=== PATIENT | female | born 1970 | race Caucasian/White ===

== ENCOUNTER → 2020-05-18 10:30 | Outpatient (BNVA) | payer OTHER, SELFPAY | PROVIDERS: PCP Internal Medicine; Visit Provider Internal Medicine Endocrinology, Diabetes & Metabolism | DX: E05.00 Thyrotoxicosis with diffuse goiter without thyrotoxic crisis or storm (principal); E55.9 Vitamin D deficiency, unspecified; Z79.899 Other long term (current) drug therapy | CPT/HCPCS: 99214 ==

== ENCOUNTER 2020-05-18 12:27 | Outpatient (REF) | payer OTHER, SELFPAY ==
[2020-05-18 14:44] LABS: Free T4 (Free Thyroxine) 1.06 ng/dL (0.71-1.85); Thyroid Stimulating Hormone 1.18 mIU/mL (0.32-4.0); Vitamin D 25-OH Total 20.3 ng/mL (>30)
[2020-05-19 19:17] LABS: Triiodothyronine T3 Total 108 ng/dL (76-181)
== END 2020-05-18 12:28 | disposition home or self-care (01) ==
LOC: HO.10HDL 12:27
PROVIDERS: Visit Provider Internal Medicine Endocrinology, Diabetes & Metabolism
DX: E05.00 Thyrotoxicosis with diffuse goiter without thyrotoxic crisis or storm (principal); E55.9 Vitamin D deficiency, unspecified
CPT/HCPCS: 82306; 84439; 84443; 84480

== ENCOUNTER → 2020-08-16 12:35 | Outpatient (BNVA) | payer OTHER, SELFPAY | PROVIDERS: Visit Provider Student in an Organized Health Care Education/Training Program | DX: Z76.89 Persons encountering health services in other specified circumstances (principal) ==

== ENCOUNTER → 2020-09-13 09:53 | Outpatient (BNVA) | payer OTHER, SELFPAY | PROVIDERS: PCP Internal Medicine; Visit Provider Internal Medicine Endocrinology, Diabetes & Metabolism ==

== ENCOUNTER 2020-10-05 10:31 | Outpatient (REF) | payer OTHER, SELFPAY | END 2020-10-05 10:32 | disposition home or self-care (01) | LOC: HO.LAB 10:31 | PROVIDERS: Visit Provider Internal Medicine | DX: Z20.822 Contact with and (suspected) exposure to COVID-19 (principal) | CPT/HCPCS: 36415; C9803; U0003; U0005 ==

== ENCOUNTER 2021-01-11 09:53 | Outpatient (REF) | payer OTHER, SELFPAY ==
[2021-01-11 12:33] LABS: Free T4 (Free Thyroxine) 0.85 ng/dL (0.71-1.85); Thyroid Stimulating Hormone 1.08 uIU/mL (0.32-4.0); Vitamin D 25-OH Total 17.3 ng/mL (>30)
[2021-01-12 14:22] LABS: Triiodothyronine T3 Total 103 ng/dL (76-181)
== END 2021-01-11 09:54 | disposition home or self-care (01) ==
LOC: HO.LAB 09:53
PROVIDERS: PCP Internal Medicine; Visit Provider Internal Medicine Endocrinology, Diabetes & Metabolism
DX: E05.00 Thyrotoxicosis with diffuse goiter without thyrotoxic crisis or storm (principal); E55.9 Vitamin D deficiency, unspecified; Z79.899 Other long term (current) drug therapy
CPT/HCPCS: 36415; 82306; 84439; 84443; 84480; 99212

== ENCOUNTER 2021-01-30 10:25 | Outpatient (REF) | payer OTHER, SELFPAY ==
--- NOTE | ~2021-01-30 | US_ITS ---
EXAMINATION: US THYROID CLINICAL INFORMATION: Thyrotoxicosis with diffuse goiter. COMPARISON: Ultrasound thyroid soft tissues neck 12/23/2018 and ultrasound thyroid soft tissues neck 06/26/2017. TECHNIQUE: Linear transducer grayscale and color Doppler examination with attention to the region of the thyroid. FINDINGS: SIZE: Measurements of the thyroid lobes and nodules are given in sagittal, anteroposterior and transverse dimensions respectively. Right Thyroid Lobe: 5.4 x 1.9 x 2.2 cm, volume 11.8 mL. Previously 5.6 x 1.6 x 1.8 cm, volume 8.4 mL. Parenchyma: The gland echotexture is homogeneous. Thyroid vascularity is increased. Left Thyroid Lobe: 4.5 x 1.0 x 1.6 cm, volume 3.8 mL. Previously 4.3 x 1.1 x 1.6 cm, volume 4.0 mL. Parenchyma: The gland echotexture is homogeneous. Thyroid vascularity is increased. Isthmus: 0.3 cm in maximum AP dimension. Previously 0.3 cm. Estimated total number of nodules greater than or equal to 1 cm: 1. Edging Machine Setter nodules are described as follows: 1. Location: Right mid. Size: 1.5 x 1.1 x 1.4 cm, volume 1.2 mL. Previously: 1.5 x 0.8 x 1.1 cm, volume 0.70 mL. Nodule characteristics: Composition: Solid/almost completely solid (2). Echogenicity: Hyperechoic (1). Shape: Not taller than wide (0). Margins: Smooth (0). Echogenic Foci: None (0). ACR TI-RADS total points: 3 ACR TI-RADS category: 3 Significant change in size (>/= 20% in 2 dimensions and minimal increase of 2 mm or 50% or greater increase in volume): Yes Change in features: No Change in ACR TI-RADS risk category: No NODES: No lymphadenopathy is seen in the tissue surrounding the thyroid gland. US/US thyroid IMPRESSION: Slightly enlarged right lobe. Interval increase in size in the solitary right nodule from 2017 exam.. ACR TI-RADS RECOMMENDATION REFERENCE: Ultrasound-guided fine-needle aspiration, followup ultrasound, no further follow up. * TR1 (0 point) and TR 2 (2 points): No FNA or follow up * TR3 (3 points): FNA if more than or equal to 2.5 cm in maximum dimension, followup ultrasound in 1, 3 and 5 years if 1.5 to 2.4 cm in maximum dimension. * TR4 (4-6 points): FNA if more than or equal to 1.5 cm in maximum dimension, followup ultrasound in 1, 2, 3 and 5 years if 1 to 1.4 cm in maximum dimension. * TR5 (more than or equal to 7 points): FNA if more than or equal to 1 cm in maximum dimension, followup ultrasound every year for 5 years if 0.5 to 0.9 cm in maximum dimension. * TR3, TR4 or TR5 nodules that are below the size threshold for follow up receive no follow up.
== END 2021-01-30 10:26 | disposition home or self-care (01) ==
LOC: HO.US 10:25
PROVIDERS: Visit Provider Internal Medicine Endocrinology, Diabetes & Metabolism
DX: E05.00 Thyrotoxicosis with diffuse goiter without thyrotoxic crisis or storm (principal)
CPT/HCPCS: 76536

== ENCOUNTER 2021-02-27 08:39 | Outpatient (REF) | payer OTHER, SELFPAY ==
--- NOTE | ~2021-02-27 | US_ITS ---
EXAMINATION: ULTRASOUND-GUIDED FINE-NEEDLE ASPIRATION CLINICAL INFORMATION: Hyperthyroid. Graves' disease. Increasing right thyroid nodule size. History of previous thyroid fine-needle aspiration March 2019 COMPARISON: Previous thyroid ultrasounds most recent 01/31/2020 TECHNIQUE: Procedure and risks and benefits including bleeding and infection were discussed with the patient and informed consent was obtained. Using ultrasound guidance and a 25-gauge needle, access to the solitary nodule in the mid right lobe was obtained. Three 25-gauge FNA specimens were obtained. There was no complication. FINDINGS: There is a complex cystic 1.5 x 1.1 x 1.5 cm nodule in the mid right lobe that was targeted for fine-needle aspiration. US/US guided fine needle asp IMPRESSION: Ultrasound-guided right thyroid nodule fine-needle aspiration.
[2021-02-27] MEDS: Lidocaine HCl 1 % MPF 5 ML VIAL SUBCUT (12:59)
== END 2021-02-27 08:40 | disposition home or self-care (01) ==
LOC: HO.US 08:39
PROVIDERS: Visit Provider Internal Medicine Endocrinology, Diabetes & Metabolism
DX: E05.00 Thyrotoxicosis with diffuse goiter without thyrotoxic crisis or storm (principal); E04.2 Nontoxic multinodular goiter
CPT/HCPCS: 10005; 88172; 88173; 88305

== ENCOUNTER → 2021-04-04 12:32 | Outpatient (BNVA) | payer OTHER, SELFPAY | PROVIDERS: PCP Internal Medicine; Visit Provider Student in an Organized Health Care Education/Training Program ==

== ENCOUNTER → 2021-04-19 08:20 | Outpatient (BNVA) | payer OTHER, SELFPAY | PROVIDERS: PCP Internal Medicine; Referring Provider Internal Medicine; Visit Provider Internal Medicine | DX: I34.0 Nonrheumatic mitral (valve) insufficiency (principal); I36.1 Nonrheumatic tricuspid (valve) insufficiency; R07.2 Precordial pain; R06.02 Shortness of breath | CPT/HCPCS: 93005; 99202 ==

== ENCOUNTER → 2021-05-04 09:32 | Outpatient (REF) | payer OTHER, SELFPAY ==
--- NOTE | 2021-05-04 09:35 | CA_ITS ---
Acquisition Time: 2021-05-04 09:53:30 Total Exercise Time: 00:06:23 Test Indications: CP, SOB Medications: SEE CHART Protocol: MICHEAL Max HR: 157 BPM 91% of Pred: 172 BPM Max BP: 152/090 mmHG Max Work Load: 7.5 METS Exercise stress test with exercise 6 min 23 sec of Micheal with mild sob and intermittent pinching sensation to localized area to left of mid sternal region, without arrythmia, with normotensive response to exercise, without EKG changes meeting criteria for ischemia. In recovery her symptoms resolved. Test reviewed with Dr Keen. Referred By: Osman Keen Overread By: OLYA SANDY
== END ==
LOC: HO.CARD 09:32
PROVIDERS: PCP Internal Medicine; Visit Provider Internal Medicine
DX: R07.2 Precordial pain (principal)
CPT/HCPCS: 93017

== ENCOUNTER → 2021-05-19 09:14 | Outpatient (REF) | payer OTHER, SELFPAY ==
--- NOTE | 2021-05-19 09:23 | CA_ITS ---
Transthoracic Echocardiogram Patient (Last, First, Middle): Edson Camacho M Gender: Female Date of : 1970 Age: 50 Procedure Date: 05/19/2021 Procedure Type: Transthoracic Echocardiogram Location: OP Height: 152.4 cm Weight: 68.04 kg BSA: 1.65 m2 Heart Rate: bpm BP: 110 / 80 mmHg Television Receiver Analyzer: GREGORY Perez MD: Osman Keen MD Product Support Technician: Thierry De Jesus MD Symptoms: R07.2 - Precordial pain Study Quality: Fair ECG Rhythm: Sinus Conclusions: - Essentially normal study Findings Left Ventricle Normal left ventricular size, thickness, and systolic function. The visually estimated ejection fraction is between 60-65%. Spectral Doppler is indicative of a normal filling pattern. Right Ventricle Normal right ventricular cavity size and systolic function. Atria Both atria are normal in size. Interatrial shunt cannot be excluded. Aortic Valve Normal aortic valve structure and function. There is no aortic valve stenosis. There is no aortic valve regurgitation. Mitral Valve Normal mitral valve structure and function. There is trace mitral valve regurgitation. There is no mitral valve stenosis. Pulmonic Valve The pulmonic valve is likely normal. Tricuspid Valve Normal tricuspid valve structure. There is trace tricuspid valve regurgitation. The right ventricular systolic pressure is normal. The right ventricular systolic pressure is 18 mmHg. Normal right atrial pressure. There is no evidence of pulmonary hypertension. Great Vessels All visible segments of the aorta are normal in size. The pulmonary artery was not well visualized. Venous The inferior vena cava is normal in size and collapses greater than 50% with inspiration. Pericardium/Pleural There is no evidence of pericardial effusion. Prior Study Comparison No significant change compared to prior study dated: 03/08/2020. Measurements 2D Linear Measurements IVSd: 0.73 0.6-0.9/0.6-1.0 cm LVIDd: 4.33 3.9-5.3/4.2-5.9 cm LVIDd Index: 2.62 2.4-3.2/2.2-3.1 cm/m2 LVIDs: 3.11 2.0-3.6 cm LVPWd: 0.69 0.7-1.1 cm Ao Root: 2.70 2.1-3.5 cm LA Diam: 3.00 2.7-3.8/3.0-4.0 cm LAIDs Index: 1.82 1.5-2.3 cm/m2 LV Mass: 113.49 67-162/88-224 g LV Mass Index: 68.78 43-95/49-115 g/m2 LVOT Diam: 2.00 3.0+(-)1.3 cm 2D Systolic Function EF 4C: 63.80 >55% EF 2C: 65.10 >55% EF BiP: 65.90 >55% Mitral Valve MV Pk E: 0.76 MV PK A: 0.65 MV Decel Time: 308.00 E/A: 1.20 E'Lateral: 13.10 E'Medial: 7.94 E/E' Med: 9.50 E/E' Lat: 5.80 PHT: 90.00 MVA PHT: 2.44 Decel [place]: 2.46 Aortic Valve AoV Pk Wes: 1.26 AoV Mn Wes: 0.84 AoV VTI: 0.26 AoV Pk Grad: 6.00 Aov Mn Grad: 3.00 APOLLO Cont.VTI: 2.62 LVOT LVOT Pk Wes: 1.01 LVOT Mn Wes: 0.70 LVOT VTI: 0.21 LVOT Pk Grad: 4.00 LVOT Mn Grad: 2.00 LVOT Diam: 2.00 LVOT Area: 3.14 Diastolic Function MV Pk E: 0.76 MV Pk A: 0.65 E/A: 1.20 E'Medial: 7.94 E/E' Med: 9.50 E' Laterial: 13.10 E/E' Lat: 5.80 Right Ventricle TAPSE (mm): 1.74 TVS' Wes: 11.90 Tricuspid Valve TR Pk Wes: 1.95 TR Pk Grad: 15.00 RA Press: 3.00 RVSP: 18.00 Great Vessels Aorta Ao Root-2D: 2.70 2.0-3.7 cm Ao Asc: 3.10 2.1-3.4 cm Ao Arch: 2.60 Updated in Other Vendor System with Status of Final Thierry De Jesus MD electronically signed on 05/20/2021 2:44:13 PM with status of Final
== END ==
LOC: HO.CARD 09:14
PROVIDERS: PCP Internal Medicine; Visit Provider Internal Medicine
DX: R07.2 Precordial pain (principal)
CPT/HCPCS: 93306

== ENCOUNTER → 2021-07-05 12:16 | Outpatient (BNVA) | payer OTHER, SELFPAY | PROVIDERS: PCP Internal Medicine; Referring Provider Internal Medicine; Visit Provider Internal Medicine | DX: R07.2 Precordial pain (principal) | CPT/HCPCS: 99212 ==

== ENCOUNTER 2021-07-18 11:04 | Outpatient (REF) | payer OTHER, SELFPAY ==
[2021-07-18 11:30] LABS: MANUAL DIFF FLAG NO
[2021-07-18 11:47] LABS: Basophils Percent Auto 0.4 % (0-2); Eosinophils Absolute Auto 0.1 X10*3/uL (0.0-0.4); Eosinophils Percent Auto 0.8 % (0-4); Hematocrit 41.8 % (37.0-47.0); Hemoglobin 13.5 g/dl (12.0-16.0); Imm Gran Abs Auto 0.02 X10*3/uL (0.00-0.03); Imm Gran Pct Auto 0.3 % (0.0-0.4); Lymphocytes Absolute Auto 2.9 X10*3/uL (1.2-4.9); Lymphocytes Percent Auto 36.4 % (20-40); Mean Corpuscular HGB Conc 32.3 g/dl (31.0-35.0); Mean Corpuscular Volume 89.9 fL (80.0-98.0); Mean Platelet Volume 9.7 fL (9.4-12.3); Monocytes Absolute Auto 0.6 X10*3/uL (0.1-1.2); Monocytes Percent Auto 7.7 % (2-11); Neutrophils Absolute Auto 4.3 x10*3/uL (2.0-8.3); Neutrophils Percent Auto 54.4 % (45-73); Platelet Count 259 X10*3/uL (160-400); Red Blood Count 4.65 X10*6/uL (4.20-5.50); Red Cell Distribution Width 12.1 % (11.0-16.0); White Blood Count 7.8 X10*3/uL (4.8-10.8)
[2021-07-18 12:17] LABS: Alanine Aminotransferase 20 U/L (0-31); Albumin Level 4.9 g/dL (3.5-5.0); Alkaline Phosphatase 84 U/L (39-117); Anion Gap 12 (12-20); Aspartate Amino Transferase 23 U/L (5-31); Bilirubin Total 0.4 mg/dL (0.0-1.0); Blood Urea Nitrogen 14 mg/dL (9-16); Calcium 10.1 mg/dL (8.4-10.2); Carbon Dioxide 27 mmol/L (22-29); Chloride 104 mmol/L (96-108); Cholesterol 233 mg/dL; Estimated Glomerular Filt Rate > 60; Glucose Fasting 95 mg/dL (60-99); HDL Cholesterol 40 mg/dL; LDL Cholesterol Calculated 174 mg/dl; Potassium 3.9 mmol/L (3.3-5.1); Sodium 139 mmol/L (135-145); Total Protein 8.3 g/dL (6.5-8.0); Triglycerides 97 mg/dL
[2021-07-18 12:24] LABS: Thyroid Stimulating Hormone 1.12 uIU/mL (0.32-4.0)
[2021-07-22 12:06] LABS: Vitamin D 25-OH, D2 <4 ng/mL; Vitamin D 25-OH, D3 15 ng/mL; Vitamin D 25-OH, Total 15 ng/mL (30-100)
== END 2021-07-18 11:05 | disposition home or self-care (01) ==
LOC: HO.LAB 11:04
PROVIDERS: Absent Provider Internal Medicine; PCP Internal Medicine; Visit Provider Internal Medicine Endocrinology, Diabetes & Metabolism
DX: E05.00 Thyrotoxicosis with diffuse goiter without thyrotoxic crisis or storm (principal); R42 Dizziness and giddiness; D64.9 Anemia, unspecified; E55.9 Vitamin D deficiency, unspecified; E66.9 Obesity, unspecified
CPT/HCPCS: 36415; 80053; 80061; 82306; 84443; 85025

== ENCOUNTER 2021-08-12 11:00 | Emergency (ER) | payer OTHER, SELFPAY ==
[2021-08-12 11:58] VITALS: BP 161/92; PULSE 87; RESP 18; TEMP 36.8; O2SAT 98; BMI 26.5
[2021-08-12 12:19] LABS: COVID-19 Test Negative (Negative)
--- NOTE | 2021-08-12 13:37 | ED_ITS ---
HPI - General Adult General Source: patient Mode of arrival: ambulatory Limitations: no limitations History of Present Illness HPI narrative: 50-year-old female with past medical history asthma, vitamin-D deficiency, hyperthyroidism, MVR, Graves disease, GERD, fibromyalgia is here today for complaining of sinus pain, and left ear pain. Patient reports that her grandchild had cold symptoms, her symptoms started few days ago. Patient has a history of sinus infection 2 years ago. No contact with anyone who had COVID. Patient reports having green nasal discharge. Patient denies fever or chills. Denies SOB, chest pain, migraine headache. Patient denies any other GI, respiratory or cardiac symptoms. Onset (ago): day(s) Location: face Related Data Home Medications Medication Instructions Recorded Confirmed cetirizine 10 mg tablet 10 mg PO DAILY 06/28/20 07/05/21 escitalopram oxalate 20 mg tablet 20 mg PO DAILY 06/28/20 07/05/21 zolpidem 5 mg tablet 5 mg PO BEDTIME PRN 06/28/20 07/05/21 latanoprost 0.005 % eye drops 1 drp OPHTHALMIC (EYE) QAM 09/13/20 07/05/21 meclizine 25 mg tablet 25 mg PO PRN tab 09/13/20 07/05/21 mometasone-formoterol HFA 200 1 puff PO BID 09/13/20 07/05/21 mcg-5 mcg/actuation aerosol inhaler triamcinolone acetonide 55 mcg 1 spray INTRANASAL PRN ml 09/13/20 07/05/21 nasal spray aerosol buspirone 7.5 mg tablet 7.5 mg PO BID 01/11/21 07/05/21 Previous Rx's Medication Instructions Recorded gabapentin 300 mg capsule 300 mg PO TID #90 cap 08/16/20 tizanidine 4 mg tablet 4 mg PO BEDTIME PRN #30 tab 08/16/20 artificial tears(hypromellose) 0.5 1 drp OPHTHALMIC (EYE) TID 30 Days 12/01/20 % eye drops #30 ml albuterol sulfate 90 mcg/actuation 2 inh INHALATION Q6H PRN 30 Days 12/27/20 breath activated powder inhaler #1 ea (ProAir RespiClick) cholecalciferol (vitamin D3) 125 125 mcg PO DAILY 30 Days #30 cap 01/11/21 mcg (5,000 unit) capsule omeprazole 20 mg capsule,delayed 20 mg PO DAILY 90 Days #90 cap 02/26/21 release valacyclovir 1 gram tablet 1,000 mg PO Q8H 7 Days #21 tab 04/28/21 methimazole 5 mg tablet 5 mg PO DAILY 90 Days #90 tab 07/19/21 hyoscyamine sulfate 0.125 mg 0.125 mg PO BID PRN 30 Days #60 tab 07/27/21 sublingual tablet fluticasone propionate 50 2 spray INTRANASAL DAILY #16 g 08/11/21 mcg/actuation nasal spray,suspension (Flonase Allergy Relief) amoxicillin 875 mg-potassium 1 tab PO BID 10 Days #20 tab 08/12/21 clavulanate 125 mg tablet (Augmentin) cetirizine 10 mg tablet (Zyrtec) 10 mg PO DAILY PRN #20 tab 08/12/21 fluticasone propionate 50 1 spray INTRANASAL BID #16 g 08/12/21 mcg/actuation nasal spray,suspension (Flonase Allergy Relief) Allergies Allergy/AdvReac Type Severity Reaction Status Date / Time No Known Allergies Allergy Unknown Verified 07/05/21 13:30 [No Known Allergies*] Review of Systems Review of Systems: Constitutional : No Weight loss, No Fever, No Chills, No Night Sweats, No Fatigue, No Malaise ENT/Mouth : No Hearing loss, Ear Pain, Nasal Congestion, Sinus Pain, No Hoarseness, sore throat, Rhinorrhea, No Swallowing Difficulty Eyes: No Eye Pain, No Swelling, No Redness, No Foreign Body, No Discharge, No Vision Changes Cardiovascular : No Chest Pain, No SOB, No Dyspnea on Exertion, No Orthopnea, No Edema, No Palpitations Respiratory : No Cough, No Sputum, No Wheezing, No Smoke Exposure, No Dyspnea Gastrointestinal : No Nausea, No Vomiting, No Diarrhea, No Constipation, No abdominal Pain, No Hematochezia, No Melena Genitourinary : no irregular bleeding, No Dysuria, No Urinary Frequency, No Hematuria, No Urinary Incontinence, No Urgency, No Flank Pain, No Urinary Flow Changes, No Hesitancy Musculoskeletal : No joint pain, No Myalgias, No Joint Swelling Skin : No Skin Lesions, No rash Neuro : No Weakness, No Numbness, No Paresthesias, No Loss of Consciousness, No Dizziness, No Headache Psych : No Anxiety/Panic, No Depression, No SI/HI/AH/VH, No Social Issues, Yes all other systems are reviewed and are negative PMFSH Past Medical History Medical History (Updated 08/13/21 @ 00:01 by Rony Carr) Asthma Fibromyalgia ROBBIE (generalized anxiety disorder) GERD (gastroesophageal reflux disease) Graves disease Graves' orbitopathy Hyperthyroidism Mild recurrent major depression Mitral valve regurgitation Obese Obesity, Class I, BMI 30-34.9 Tricuspid regurgitation Uninodular goiter Vertigo Vitamin D deficiency Surgical History Hx of hysterectomy Family History Family History Father CVD (cardiovascular disease) Hypertension Mother CVD (cardiovascular disease) Hypertension Diabetes Son Mental health disorder Social History Social History Household Members: Children Housing: Apartment Alcohol intake: current Alcohol intake frequency: holidays/special occasions only Alcohol type: wine and hard liquor Patient Tobacco Use Status: Never used Tobacco e-Cigarette/Vaping Use: Never Used Second Hand Smoke Exposure: No Advance Directives: Yes Advance Directives on File: Yes Advance Directives Date on File: 05/18/20 Patient : No service: No Current occupational status: unemployed Physical Exam Vital Signs: Vital Signs: Last Vital Signs Temp 98.3 F 08/12/21 11:58 Pulse 87 08/12/21 11:58 Resp 18 08/12/21 11:58 BP 161/92 H 08/12/21 11:58 Pulse Ox 98 08/12/21 11:58 BMI result Body Mass Index 26.5 Const: General: healthy appearing, no acute distress and well developed Nutritional Appearance: well nourished Orientation/consciousness: patient oriented x3 HENMT: Head: Yes normal to inspection, Yes normocephalic, Yes atraumatic and Yes other (Frontal sinus tenderness) Ears: hearing grossly normal bilaterally, TM normal on the right and left TM abnormal General nose exam: Normal external nose present and Normal nares present Face and sinus: Yes normal facial exam Mouth: Normal oral and palatal mucosa present Throat: Yes posterior oropharynx normal, Yes uvula midline and Yes abnormal tonsil (Tonsils enlarged bilaterally without exudate) Eyes: General: appearance normal, both eyes and all related structures Neck: Neck: Yes normal visual inspection, Yes full ROM and Yes trachea midline Thyroid: Thyroid normal Resp: Effort & Inspection: normal respiratory effort, able to speak in complete sentences, no tracheal deviation and symmetric chest movement Auscultation: clear to auscultation bilaterally Cardio: Jugular venous distension: no JVD Rate: regular rate Heart sounds: S1 normal heart sound present, S2 normal heart sound present, no gallops and no murmurs GI: Inspection: Yes normal to inspection and No distended Palpation (GI): Soft to palpation, not firm, nontender and No hepatosplenomegaly present Auscultation: normal bowel sounds : General: Yes no CVA tenderness Back/Spine/Pelvis: Back: no CVA tenderness Skin: General skin exam: elasticity normal, turgor normal and dry skin Neuro: General: patient oriented x3 Psych: Appearance: grossly normal Mental Status: mental status grossly normal Speech and movement: Normal speech and movement present Affect: normal affect Attitude: cooperative Thought process: Normal thought process present Thought content: Normal thought content present Insight: Lucreica billingsley insight present (Psych) Judgement: Good judgement present (Psych) Course Course Course Narrative: 50 years old female with past medical history of GERD, fibromyalgia, MVR, asthma, Graves disease, hyperthyroidism is here today for complaining of sinus pain. Upon exam patient does have frontal sinus and phoebe nasal sinus tenderness, left TM redness without bulging. Will send patient home on antibiotic. First dose of Augmentin will be given in the ER. Patient can also take Flonase at home twice a day in each nostril for the next 7 days and then daily. Patient can take also Zyrtec daily. Patient was instructed to drink plenty fluids and return to emergency department if her symptoms will get worse. Patient is agreeable to this plan and verbalizes understanding of instructions. Medical Decision Making Lab Data Labs: Lab Results 08/12/21 Range/Units 12:00 COVID-19 ([facility]) Negative (Negative) COVID-19 Clin Com See Note Discharge Plan Discharge Clinical Impression: Otitis media, Sinus infection Patient Disposition: Home, Self-Care Instructions: Sinusitis (ED), Ear Infection (ED) Additional Instructions: You were seen here today for sinus, throat and ear pain. You do have a sinus infection and left ear infection. You were given 1st dose of antibiotics in the emergency room. You will be given a script for Flonase. Please take it twice a day in each nostril for 1st week then once a day. Please take antibiotics twice a day for 10 days. You will be giving a script for Zyrtec as well take it on as needed basis daily Prescriptions: New amoxicillin-pot clavulanate [Augmentin] 875-125 mg tablet 1 tab PO BID 10 Days Qty: 20 RF: 0 fluticasone propionate [Flonase Allergy Relief] 50 mcg/actuation spray,suspension 1 spray intranasal BID Qty: 16 RF: 0 cetirizine [Zyrtec] 10 mg tablet 10 mg PO DAILY PRN (Reason: allergy symptoms) Qty: 20 RF: 0 No Action artificial tears(hypromellose) 0.5 % drops 1 drp ophthalmic (eye) TID 30 Days Qty: 30 RF: 6 omeprazole 20 mg capsule,delayed release(DR/EC) 20 mg PO DAILY 90 Days Qty: 90 RF: 2 valacyclovir 1 gram tablet 1,000 mg PO Q8H 7 Days Qty: 21 RF: 0 methimazole 5 mg tablet 5 mg PO DAILY 90 Days Qty: 90 RF: 0 hyoscyamine sulfate 0.125 mg tablet, sublingual 0.125 mg PO BID PRN (Reason: dyspepsia) 30 Days Qty: 60 RF: 0 fluticasone propionate [Flonase Allergy Relief] 50 mcg/actuation spray,suspension 2 spray intranasal DAILY Qty: 16 RF: 0 ProAir RespiClick 90 mcg/actuation aerosol powdr breath activated 2 inh inhalation Q6H PRN (Reason: shortness of breath or wheezing) 30 Days Qty: 1 RF: 6 cetirizine 10 mg tablet 10 mg PO DAILY RF: 0 zolpidem 5 mg tablet 5 mg PO BEDTIME PRNRF: 0 escitalopram oxalate 20 mg tablet 20 mg PO DAILY RF: 0 meclizine 25 mg tablet 25 mg PO PRN (Reason: motion sickness) RF: 0 mometasone-formoterol 200-5 mcg/actuation HFA aerosol inhaler 1 puff PO BID RF: 0 triamcinolone acetonide 55 mcg aerosol,spray 1 spray intranasal PRNRF: 0 latanoprost 0.005 % drops 1 drp ophthalmic (eye) QAM RF: 0 tizanidine 4 mg tablet 4 mg PO BEDTIME PRN (Reason: muscle spasticity) Qty: 30 RF: 3 gabapentin 300 mg capsule 300 mg PO TID Qty: 90 RF: 3 buspirone 7.5 mg tablet 7.5 mg PO BID RF: 0 cholecalciferol (vitamin D3) 125 mcg (5,000 unit) capsule 125 mcg PO DAILY 30 Days Qty: 30 RF: 6 Referrals: Melissa Au MD [Primary Care Provider] - 2 days Interventions: ED Discharge Assessment Last Done: 08/12/21 14:31 Discharge Date/Time: 08/12/21 14:31
[2021-08-12] MEDS: Amoxicillin/Potassium Clav 875 MG TABLET PO (14:05)
== END 2021-08-12 14:31 | disposition home or self-care (01) ==
PROVIDERS: Emergency Provider Internal Medicine; PCP Internal Medicine
DX: H66.92 Otitis media, unspecified, left ear (principal); J32.9 Chronic sinusitis, unspecified; Z20.822 Contact with and (suspected) exposure to COVID-19
CPT/HCPCS: 87635; 99283

== ENCOUNTER → 2021-09-18 13:43 | Outpatient (BNVA) | payer OTHER, SELFPAY | PROVIDERS: PCP Internal Medicine; Visit Provider Nurse Practitioner Family | DX: M54.2 Cervicalgia (principal); M54.50 Low back pain, unspecified; M25.561 Pain in right knee; M25.562 Pain in left knee | CPT/HCPCS: 99212 ==

== ENCOUNTER 2021-10-18 12:41 | Outpatient (REF) | payer OTHER, SELFPAY ==
--- NOTE | ~2021-10-18 | MR_ITS ---
EXAMINATION: MR CERVICAL SPINE WITHOUT CONTRAST CLINICAL INFORMATION: Cervicalgia. COMPARISON: None available. TECHNIQUE: MRI of the cervical spine was performed using routine sequences without contrast. FINDINGS: The cervical vertebral bodies maintain normal heights and alignment. The disc heights appear preserved. There is no bone marrow edema. The cervical cord signal appears normal. There is no disc herniation. No spinal canal or neural foraminal stenosis is seen. The imaged portions of the intracranial contents and extraspinal soft tissues appear normal. MR/MR cervical spine wo con IMPRESSION: No significant abnormality is seen. No spinal canal or neural foraminal stenosis.
== END 2021-10-18 12:42 | disposition home or self-care (01) ==
LOC: HO.MRI 12:41
PROVIDERS: Visit Provider Nurse Practitioner Family
DX: E05.00 Thyrotoxicosis with diffuse goiter without thyrotoxic crisis or storm (principal); M54.2 Cervicalgia; N95.1 Menopausal and female climacteric states; Z79.899 Other long term (current) drug therapy
CPT/HCPCS: 72141; 99212

== ENCOUNTER 2021-11-08 11:05 | Outpatient (REF) | payer OTHER, SELFPAY ==
--- NOTE | ~2021-11-08 | XR_ITS ---
EXAMINATION: XR LUMBOSACRAL SPINE CLINICAL INFORMATION: Low back pain COMPARISON: 10/21/2015 TECHNIQUE: Three views of the lumbosacral spine. FINDINGS: No acute fracture or traumatic malalignment. Mild levoconvex lumbar scoliosis, apex left at L2-L3. Small endplate osteophytes present throughout the lumbar spine. Moderate facet arthropathy L4-L5 and L5-S1. Disc space heights are relatively preserved. Sacroiliac joints unremarkable. Paraspinal soft tissues unremarkable. XR/XR lumbar spine 2-3V IMPRESSION: No acute findings. Lumbar spondylosis as described
[2021-11-08 11:25] LABS: MANUAL DIFF FLAG NO
[2021-11-08 11:53] LABS: Basophils Percent Auto 0.3 % (0-2); Eosinophils Absolute Auto 0.1 X10*3/uL (0.0-0.4); Eosinophils Percent Auto 0.8 % (0-4); Hematocrit 38.7 % (37.0-47.0); Hemoglobin 12.7 g/dl (12.0-16.0); Imm Gran Abs Auto 0.05 X10*3/uL (0.00-0.03); Imm Gran Pct Auto 0.6 % (0.0-0.4); Lymphocytes Absolute Auto 3.3 X10*3/uL (1.2-4.9); Lymphocytes Percent Auto 38.4 % (20-40); Mean Corpuscular HGB Conc 32.8 g/dl (31.0-35.0); Mean Corpuscular Hemoglobin 29.2 pg (27.0-33.0); Mean Platelet Volume 9.3 fL (9.4-12.3); Monocytes Absolute Auto 0.7 X10*3/uL (0.1-1.2); Monocytes Percent Auto 8.2 % (2-11); Neutrophils Absolute Auto 4.5 x10*3/uL (2.0-8.3); Neutrophils Percent Auto 51.7 % (45-73); Platelet Count 304 X10*3/uL (160-400); Red Blood Count 4.35 X10*6/uL (4.20-5.50); Red Cell Distribution Width 12.4 % (11.0-16.0); White Blood Count 8.7 X10*3/uL (4.8-10.8)
[2021-11-08 12:51] LABS: Alanine Aminotransferase 19 U/L (0-31); Albumin Level 4.8 g/dL (3.5-5.0); Alkaline Phosphatase 75 U/L (39-117); Anion Gap 14 (12-20); Aspartate Amino Transferase 20 U/L (5-31); Bilirubin Total 0.3 mg/dL (0.0-1.0); Blood Urea Nitrogen 13 mg/dL (9-16); Carbon Dioxide 26 mmol/L (22-29); Chloride 103 mmol/L (96-108); Estimated Glomerular Filt Rate > 60; Glucose Random 90 mg/dL (60-115); Potassium 4.1 mmol/L (3.3-5.1); Sodium 139 mmol/L (135-145); Total Protein 8.1 g/dL (6.5-8.0)
[2021-11-08 12:57] LABS: Free T4 (Free Thyroxine) 0.94 ng/dL (0.71-1.85); Thyroid Stimulating Hormone 1.99 uIU/mL (0.32-4.0)
== END 2021-11-08 11:06 | disposition home or self-care (01) ==
LOC: HO.XRAY 11:05
PROVIDERS: Internal Medicine Endocrinology, Diabetes & Metabolism; Absent Provider Nurse Practitioner Family; PCP Internal Medicine; Visit Provider Student in an Organized Health Care Education/Training Program
DX: D64.9 Anemia, unspecified (principal); M54.50 Low back pain, unspecified; E05.90 Thyrotoxicosis, unspecified without thyrotoxic crisis or storm
CPT/HCPCS: 36415; 72100; 80053; 84439; 84443; 85025

== ENCOUNTER 2022-01-24 12:56 | Outpatient (REF) | payer OTHER, SELFPAY ==
--- NOTE | ~2022-01-24 | MM_ITS ---
EXAMINATION: MM SCREENING DIGITAL BREAST TOMOSYNTHESIS, BILATERAL CLINICAL INFORMATION: Screening. Asymptomatic. The lifetime risk of breast cancer based on the Tyrer-Cuzick Model is 4%. COMPARISON: Mammography: 06/09/2019, 03/06/2017; outside mammography 04/06/2015 ([facility]). TECHNIQUE: Digital breast tomosynthesis is performed in both the craniocaudal and mediolateral oblique views along with computer-aided detection (CAD). Synthesized 2D images are generated from the tomosynthesis. FINDINGS: There are scattered areas of fibroglandular density (ACR BI-RADS breast composition Category b). There are no significant masses, abnormal calcifications, or other abnormalities. There is a smooth nodule posterior 9:00 right breast without significant change. The axilla and skin contours are unremarkable. No significant changes. MM/MM tomosynthesis screening BI IMPRESSION: No mammographic evidence of malignancy. ASSESSMENT: BI-RADS 2: Benign RECOMMENDATION: Routine annual mammography screening. This patient's information was entered into a reminder system with a target due date for their next mammogram.
== END 2022-01-24 12:57 | disposition home or self-care (01) ==
LOC: HO.MAMMO 12:56
PROVIDERS: PCP Internal Medicine; Visit Provider Nurse Practitioner Family
DX: Z12.31 Encounter for screening mammogram for malignant neoplasm of breast (principal)
CPT/HCPCS: 77063; 77067

== ENCOUNTER 2022-02-14 14:40 | Outpatient (REF) | payer OTHER, SELFPAY ==
[2022-02-14 16:15] LABS: Cholesterol 197 mg/dL; HDL Cholesterol 38 mg/dL; LDL Cholesterol Calculated 128 mg/dl; Triglycerides 159 mg/dL
[2022-02-14 16:35] LABS: Vitamin D 25-OH Total 16.8 ng/mL (>30)
[2022-02-17 14:31] LABS: Immunoglobulin A 256 mg/dL (47-310)
[2022-02-20 09:47] LABS: Transglutaminase Ab IgG <1.0 U/mL; Transglutaminase IgA <1.0 U/mL
== END 2022-02-14 14:41 | disposition home or self-care (01) ==
LOC: HO.LAB 14:40
PROVIDERS: Nurse Practitioner Family; PCP Internal Medicine; Visit Provider Nurse Practitioner Family
DX: R10.9 Unspecified abdominal pain (principal); K21.9 Gastro-esophageal reflux disease without esophagitis; K58.9 Irritable bowel syndrome, unspecified
CPT/HCPCS: 36415; 80061; 82306; 82784; 86364; 99202; 99212

== ENCOUNTER 2022-02-19 12:26 | Outpatient (REF) | payer OTHER, SELFPAY ==
[2022-02-27 18:42] LABS: Pancreatic Elastase-1 >500 mcg/g
== END 2022-02-19 12:27 | disposition home or self-care (01) ==
LOC: HO.LNP 12:26
PROVIDERS: Visit Provider Nurse Practitioner Family
DX: R10.9 Unspecified abdominal pain (principal); K21.9 Gastro-esophageal reflux disease without esophagitis
CPT/HCPCS: 82656; 87338

== ENCOUNTER → 2022-04-06 15:28 | Outpatient (BNVA) | payer OTHER, SELFPAY | PROVIDERS: PCP Internal Medicine; Visit Provider Nurse Practitioner Family | DX: K21.9 Gastro-esophageal reflux disease without esophagitis (principal); K59.04 Chronic idiopathic constipation; K58.2 Mixed irritable bowel syndrome | CPT/HCPCS: 99212 ==

== ENCOUNTER 2022-05-30 11:21 | Outpatient (REF) | payer OTHER, SELFPAY ==
[2022-05-30 13:12] LABS: Free T4 (Free Thyroxine) 0.85 ng/dL (0.71-1.85); Thyroid Stimulating Hormone 1.74 uIU/mL (0.32-4.0); Vitamin D 25-OH Total 10.2 ng/mL (>30)
== END 2022-05-30 11:22 | disposition home or self-care (01) ==
LOC: HO.LAB 11:21
PROVIDERS: PCP Internal Medicine; Visit Provider Internal Medicine
DX: E05.90 Thyrotoxicosis, unspecified without thyrotoxic crisis or storm (principal); E55.9 Vitamin D deficiency, unspecified
CPT/HCPCS: 36415; 82306; 84439; 84443

== ENCOUNTER → 2022-06-05 14:59 | Outpatient (REF) | payer OTHER, SELFPAY ==
--- NOTE | 2022-06-05 15:00 | CA_ITS ---
Transthoracic Echocardiogram Patient (Last, First, Middle): Edson Camacho M Gender: Female Date of : 1970 Age: 51 Procedure Date: 06/05/2022 Procedure Type: Transthoracic Echocardiogram Location: OP Height: 152.4 cm Weight: 71.67 kg BSA: 1.69 m2 Heart Rate: bpm BP: 115 / 70 mmHg [employer] Advisor: TO Referring MD: Melissa Coates MD Symptoms: I36.1 - Nonrheumatic tricuspid (valve) insufficiency Study Quality: Adequate ECG Rhythm: Sinus Conclusions: - The left ventricular systolic function is normal. The calculated ejection fraction is 60% by biplane method. - No obvious valvular pathology seen on this study. Findings Left Ventricle Normal left ventricular cavity size. There is normal left ventricular wall thickness. The left ventricular systolic function is normal. The calculated ejection fraction is 60% by biplane method. There is no evidence of regional wall motion abnormalities. Diastolic function is normal for age. Right Ventricle Normal right ventricular cavity size and systolic function. Atria Both atria are normal in size. Aortic Valve There is a normal trileaflet aortic valve. There is no aortic valve stenosis. There is no aortic valve regurgitation. Mitral Valve The mitral valve appears normal. There is trace mitral valve regurgitation. There is no mitral valve stenosis. Pulmonic Valve The pulmonic valve is likely normal. Tricuspid Valve Normal tricuspid valve structure. There is mild tricuspid valve regurgitation. There is no evidence of pulmonary hypertension. Great Vessels The asc aorta is normal in size. Venous The inferior vena cava is normal in size and collapses greater than 50% with inspiration. Pericardium/Pleural There is no evidence of pericardial effusion. Prior Study Comparison No significant change compared to prior study dated: 05/19/2021. Recommendations, Care & Conclusions No obvious valvular pathology seen on this study. Measurements 2D Linear Measurements IVSd: 0.76 0.6-0.9/0.6-1.0 cm LVIDd: 3.96 3.9-5.3/4.2-5.9 cm LVIDd Index: 2.34 2.4-3.2/2.2-3.1 cm/m2 LVIDs: 2.57 2.0-3.6 cm LVPWd: 0.80 0.7-1.1 cm LA Diam: 2.80 2.7-3.8/3.0-4.0 cm LAIDs Index: 1.66 1.5-2.3 cm/m2 LV Mass: 109.87 67-162/88-224 g LV Mass Index: 65.01 43-95/49-115 g/m2 LVOT Diam: 2.00 3.0+(-)1.3 cm 2D Systolic Function EF 4C: 57.50 >55% EF 2C: 60.80 >55% EF BiP: 59.70 >55% Mitral Valve MV Pk E: 0.72 MV PK A: 0.53 MV Decel Time: 270.00 E/A: 1.40 E'Lateral: 11.70 E'Medial: 9.25 E/E' Med: 7.80 E/E' Lat: 6.20 PHT: 79.00 MVA PHT: 2.78 Decel [place]: 2.66 Aortic Valve AoV Pk Wes: 1.29 AoV Mn Wes: 0.87 AoV VTI: 0.28 AoV Pk Grad: 7.00 Aov Mn Grad: 3.00 APOLLO Cont.VTI: 2.32 LVOT LVOT Pk Wes: 0.95 LVOT Mn Wes: 0.66 LVOT VTI: 0.21 LVOT Pk Grad: 4.00 LVOT Mn Grad: 2.00 LVOT Diam: 2.00 LVOT Area: 3.14 Diastolic Function MV Pk E: 0.72 MV Pk A: 0.53 E/A: 1.40 E'Medial: 9.25 E/E' Med: 7.80 E' Laterial: 11.70 E/E' Lat: 6.20 Right Ventricle TAPSE (mm): 29.10 TVS' Wes: 12.20 Tricuspid Valve TR Pk Wes: 2.39 TR Pk Grad: 23.00 RA Press: 3.00 RVSP: 26.00 Great Vessels Aorta Sinus of Valsalva: 2.58 2.0-3.[address] [place]: 2.27 1.7-3.4 cm Ao Asc: 3.10 2.1-3.4 cm Updated in Other Vendor System with Status of Final Osman Keen MD electronically signed on 06/06/2022 9:17:55 AM with status of Final
== END ==
LOC: HO.CARD 14:59
PROVIDERS: PCP Internal Medicine; Visit Provider Internal Medicine
DX: I36.1 Nonrheumatic tricuspid (valve) insufficiency (principal)
CPT/HCPCS: 93306

== ENCOUNTER 2022-10-17 08:59 | Day surgery (SDC) | payer OTHER, SELFPAY ==
[2022-10-12 09:30] VITALS: BMI 30.8
--- NOTE | 2022-10-16 12:32 | P.CONAN_ITS ---
Documented by User: Catherine Levin NP 10/16/22 12:34 HPI - Anesthesia Eval Consult details Narrative: 52yo F for Upper Endoscopy and Colonoscopy PMF Active Problems Active Problems: All Active Problems (Updated 04/19/22 @ 20:18 by Thais Arrieta [facility]) Neck pain (Acute) Low back pain (Acute) Precordial chest pain (Acute) SOB (shortness of breath) (Acute) Nonrheumatic mitral valve regurgitation (Acute) Nonrheumatic tricuspid valve regurgitation (Acute) Screening for hyperlipidemia (Acute) Low vitamin D level (Acute) IBS (irritable bowel syndrome) (Acute) Screening for colon cancer (Acute) Screening for breast cancer (Acute) Shoulder pain, right (Acute) Pruritic erythematous rash (Acute) ROBBIE (generalized anxiety disorder) (Acute) Mild recurrent major depression (Acute) GERD (gastroesophageal reflux disease) (Acute) Fibromyalgia (Acute) Obesity, Class I, BMI 30-34.9 (Acute) Obese (Acute) Vertigo (Acute) Tricuspid regurgitation (Acute) Mitral valve regurgitation (Acute) Vitamin D deficiency (Acute) Graves' orbitopathy (Acute) Uninodular goiter (Acute) Asthma (Acute) Graves disease (Acute) Hyperthyroidism (Acute) Past Medical History Medical History Asthma Fibromyalgia ROBBIE (generalized anxiety disorder) GERD (gastroesophageal reflux disease) Graves disease Graves' orbitopathy Hyperthyroidism Mild recurrent major depression Mitral valve regurgitation Obese Obesity, Class I, BMI 30-34.9 Sinusitis Tricuspid regurgitation Uninodular goiter Vertigo Vitamin D deficiency Family History Family History Father CVD (cardiovascular disease) Hypertension Mother CVD (cardiovascular disease) Hypertension Diabetes Son Mental health disorder Surgical History Surgical History (Updated 10/12/22 @ 09:15 by Kristal Ye RN) H/O ultrasound guided needle biopsy History of endometrial ablation Hx of hysterectomy S/P fine needle aspiration Social History Social History Household Members: Children Housing: Apartment Alcohol intake: current Alcohol intake frequency: holidays/special occasions only Alcohol type: wine and hard liquor Patient Tobacco Use Status: Never used Tobacco e-Cigarette/Vaping Use: Never Used Second Hand Smoke Exposure: No Advance Directives Date on File: 05/18/20 service: No Current occupational status: unemployed Cognitive needs: No Hearing needs: No Vision needs: Yes Meds Allergies Allergy/AdvReac Type Severity Reaction Status Date / Time No Known Allergies Allergy Verified 10/12/22 09:30 Home Medications Medication Instructions Recorded Confirmed Last Taken Type escitalopram oxalate 20 mg tablet 20 mg PO DAILY 06/28/20 10/12/22 Unknown History zolpidem 5 mg tablet 5 mg PO BEDTIME PRN Insomnia 06/28/20 10/12/22 Unknown History latanoprost 0.005 % eye drops 1 drp ophthalmic (eye) QAM 09/13/20 10/12/22 Unknown History meclizine 25 mg tablet 25 mg PO DAILY PRN motion sickness 09/13/20 10/12/22 Unknown History mometasone-formoterol HFA 200 1 puff PO BID 09/13/20 10/12/22 Unknown History mcg-5 mcg/actuation aerosol inhaler buspirone 7.5 mg tablet 7.5 mg PO BID 01/11/21 10/12/22 Unknown History Exam Exam Date and Time: October 16, 2022 1232 Height,Weight and Vital Signs: Height 5 ft Weight 71.668 kg Narrative Narrative: ECHO 2021 Conclusions: - The left ventricular systolic function is normal.? The ? calculated ejection fraction is 60% by biplane method. ? - No obvious valvular pathology seen on this study.? Assessment and Plan Assessment Anesthesia Assessment: Chart Reviewed Documented by User: Meng Mitchell MD 10/17/22 16:56 HPI - Anesthesia Eval Consult details Narrative: 52yo F for Upper Endoscopy and Colonoscopy Asthma PMFSH Past Medical History Medical History Asthma Fibromyalgia ROBBIE (generalized anxiety disorder) GERD (gastroesophageal reflux disease) Graves disease Graves' orbitopathy Hyperthyroidism Mild recurrent major depression Mitral valve regurgitation Obese Obesity, Class I, BMI 30-34.9 Sinusitis Tricuspid regurgitation Uninodular goiter Vertigo Vitamin D deficiency Functional capacity: independent ambulation Family History Family History Father CVD (cardiovascular disease) Hypertension Mother CVD (cardiovascular disease) Hypertension Diabetes Son Mental health disorder Family history of problems with anesthesia: No Surgical History Surgical History (Updated 10/12/22 @ 09:15 by Kristal Ye RN) H/O ultrasound guided needle biopsy History of endometrial ablation Hx of hysterectomy S/P fine needle aspiration History of Problems with Anesthesia: Yes (PONV) Social History Social History Household Members: Children Housing: Apartment Alcohol intake: current Alcohol intake frequency: holidays/special occasions only Alcohol type: wine and hard liquor Patient Tobacco Use Status: Never used Tobacco e-Cigarette/Vaping Use: Never Used Second Hand Smoke Exposure: No Advance Directives Date on File: 05/18/20 service: No Current occupational status: unemployed Cognitive needs: No Hearing needs: No Vision needs: Yes Meds Allergies Allergy/AdvReac Type Severity Reaction Status Date / Time No Known Allergies Allergy Verified 10/12/22 09:30 Home Medications Medication Instructions Recorded Confirmed Last Taken Type escitalopram oxalate 20 mg tablet 20 mg PO DAILY 06/28/20 10/12/22 Unknown History zolpidem 5 mg tablet 5 mg PO BEDTIME PRN Insomnia 06/28/20 10/12/22 Unknown History latanoprost 0.005 % eye drops 1 drp ophthalmic (eye) QAM 09/13/20 10/12/22 Unknown History meclizine 25 mg tablet 25 mg PO DAILY PRN motion sickness 09/13/20 10/12/22 Unknown History mometasone-formoterol HFA 200 1 puff PO BID 09/13/20 10/12/22 Unknown History mcg-5 mcg/actuation aerosol inhaler buspirone 7.5 mg tablet 7.5 mg PO BID 01/11/21 10/12/22 Unknown History Exam Airway Mallampati Class: III TM Dist: >3cm Neck ROM: Full Loose/Missing/Broken Teeth: Yes Heart: S1,S2 Lungs: b/l breath sounds Assessment and Plan Assessment Anesthesia Assessment: Anesthesia Plan Discussed Final Anesthetic Review Family History of Problems with Anesthesia: No History of Problems with Anesthesia: Yes (PONV) NPO: Yes ASA Class: III Final Preanesthetic Review: Meds/Allgs Chart Reviewed, Consent Obtained/Reviewed and Anes Risks/Benef Reviewed Patient Risk: Intermediate Procedure Risk: Intermediate Anesthetic Plan Anesthetic Plan: MAC: Disposition: Standard PACU
--- NOTE | 2022-10-17 11:30 | MHC.SHP ---
Pre-Procedural Eval Section A Date of Service: 10/17/22 Section B Chief Complaint: Screening, IBS Relevant Family History (Specify if Yes): No Relevant Social History: None Present Medications: see Short Stay Collaborative assessment Medical History: Significant History (Asthma Fibromyalgia ROBBIE (generalized anxiety disorder) GERD (gastroesophageal reflux disease) Graves disease Graves' orbitopathy Hyperthyroidism Mild recurrent major depression Mitral valve regurgitation Obese Obesity, Class I, BMI 30-34.9 Sinusitis Tricuspid regurgitation Uninodular goiter Vertigo ) History of Previous Operations: Relevant previous surgery/procedure and date(s) (H/O ultrasound guided needle biopsy Hx of hysterectomy S/P fine needle aspiration) Allergies: Allergies Allergy/AdvReac Type Severity Reaction Status Date / Time No Known Allergies Allergy Verified 10/12/22 09:30 Review of Systems Sugical H&P ROS: Negative: Constitution, Cardiovascular, Respiratory, Neurological, Psychiatric, Hem-Onc, Allergic/Immunologic, Gastrointestinal, Genitourinary, Musculoskeletal, Integumentary, Endocrine and Eyes/Ears/Nose/Throat Exam Surgical H&P Exam: Normal: HEENT, Normal: Heart, Normal: Lungs, Normal: Extremities, Normal: Abdomen, Normal: Skin and Normal: Neurological Plan Diagnosis/Plan: Unchanged I have reviewed the history and physical and performed a pertinent physical examination on my patient. No changes have occurred unless specified. Time Spent With Patient Time: Total time managing care of this patient today ____ minutes.
[2022-10-17 12:09] VITALS: BP 126/72; PULSE 71; RESP 15; TEMP 36.5; O2SAT 97
[2022-10-17] MEDS: Lactated Ringers 1,000 ML 100 ML IVCONT (12:11)
--- NOTE | 2022-10-17 12:23 | W.PM.OPN ---
Operative Note Operative Note Date of Service: 10/17/22 Narrative: Operative Information Procedure Description: EGD, Colonoscopy Indication: GERD, screening Anesthesia: MAC FLEXIBLE TRANSORAL UPPER GASTROINTESTINAL ENDOSCOPY AND COLONOSCOPY PROCEDURE NOTE UPPER ENDOSCOPY Consent: Indications for the procedure and potential complications of bleeding, perforation, reaction to medications and missed diagnosis were discussed with the patient and informed consent was obtained. Instrument: Olympus GIF H 190 J mid size upper endoscope Monitoring: Vital signs and clinical assessment, continuous EKG monitoring, Pulse oximetry, Carbon Dioxide monitoring and blood pressure monitoring were done throughout the procedure. Procedure: The patient was placed in the left lateral decubitis position and pre-procedure medications were administered and a bite block was placed. The endoscope was inserted into the mouth and advanced under direct vision to the third part of duodenum. A careful inspection was made as the upper endoscope was withdrawn including a retroflexed examination of the proximal stomach; Findings and interventions are described below. Findings: Larynx:normal Esophagus: GE junction at 35 cm, diaphragm hiatus at 35 cm, possible short segment barretts, bx taken. The LES was incompetent Stomach: Mild gastritis. Biopsies were obtained. Grade 2 flap valve on retroflexed examination of the cardia. Duodenum: Normal bulb and descending duodenum, Intervention: Biopsies as noted above COLONOSCOPY Instrument: Olympus variable stiffness pediatric scope 190L Colonoscopy Monitoring: Vital signs and clinical assessment, continuous EKG monitoring, Pulse oximetry, Carbon Dioxide monitoring and blood pressure monitoring were done throughout the procedure. Colon withdrawal time was 8 minutes. Procedure: The patient was placed in the left lateral decubitis position and pre-procedure medications were administered. After a digital rectal examination of the ano-rectum, the video colonoscope was inserted into the rectum and advanced through the colon to the cecum/TI. The colonoscope was slowly withdrawn in a retrograde panoramic fashion and the colon mucosa was carefully examined including a retroflexed view of the rectum. Findings and interventions are described below. Procedure Difficulty: easy Findings: Terminal Ileum-normal Cecum:normal Ascending Colon: normal Transverse Colon -normal Descending Colon: 10 mm sessile polyp removed with cold snare Sigmoid Colon: normal Rectum: Retroflexion with small internal hemorrhoids, grade I Anorectum - normal Colon preparation: [place] Bowel Preparation Scale Right colon; 2 Transverse colon: 2 Left colon; 3 (0 = Unprepared colon segment with mucosa not seen due to solid stool that cannot be cleared. 1 = Portion of mucosa of the colon segment seen, but other areas of the colon segment not well seen due to staining, residual stool and/or opaque liquid. 2 = Minor amount of residual staining, small fragments of stool and/or opaque liquid, but mucosa of colon segment seen well. 3 = Entire mucosa of colon segment seen well with no residual staining, small fragments of stool or opaque liquid) Impression and Post Procedure Diagnosis: Endoscopy Findings: gastritis possible barretts incompetent LES Colonoscopy Findings: polyp internal hemorrhoids Plan: Await Pathology results Repeat Colonoscopy in 5-7 years if adenomatous polyp, otherwise 10 yrs or earlier if clinically indicated High fiber diet leaflet avoid straining at stool, epsom salts and sitz bath, anusol supps or cream reflux precautions, if Barretts confirmed then repeat EGD in 3-5 yrs Above findings were reviewed with the patient and relevant handouts were provided if indicated.
[2022-10-17 13:38] VITALS: BP 127/70; PULSE 85; RESP 18; TEMP 36.3; O2SAT 97
[2022-10-17 13:53] VITALS: BP 132/89; PULSE 74; RESP 18; O2SAT 98
[2022-10-17 14:08] VITALS: BP 134/81; PULSE 89; RESP 18; TEMP 36.3; O2SAT 97
== END 2022-10-17 14:38 | disposition home or self-care (01) ==
PROVIDERS: PCP Internal Medicine; Visit Provider Internal Medicine Gastroenterology
PROC: (CPT 45385; principal; 2022-10-17 12:10)
DX: Z12.11 Encounter for screening for malignant neoplasm of colon (principal); D12.4 Benign neoplasm of descending colon; K64.0 First degree hemorrhoids; K58.2 Mixed irritable bowel syndrome; K21.9 Gastro-esophageal reflux disease without esophagitis; K29.50 Unspecified chronic gastritis without bleeding; K22.4 Dyskinesia of esophagus; K44.9 Diaphragmatic hernia without obstruction or gangrene; J45.909 Unspecified asthma, uncomplicated; E05.00 Thyrotoxicosis with diffuse goiter without thyrotoxic crisis or storm; M79.7 Fibromyalgia; F33.0 Major depressive disorder, recurrent, mild; F41.1 Generalized anxiety disorder; E66.9 Obesity, unspecified; Z68.29 Body mass index [BMI] 29.0-29.9, adult; Z79.51 Long term (current) use of inhaled steroids; Z79.899 Other long term (current) drug therapy
CPT/HCPCS: 45385; 43239; 88305; 88342; J2250; J3010

== ENCOUNTER → 2022-10-23 11:28 | Outpatient (BNVA) | payer OTHER, SELFPAY | PROVIDERS: PCP Internal Medicine; Visit Provider Nurse Practitioner Family | DX: M54.50 Low back pain, unspecified (principal); M54.2 Cervicalgia; M47.816 Spondylosis without myelopathy or radiculopathy, lumbar region; E55.9 Vitamin D deficiency, unspecified | CPT/HCPCS: 99212 ==

== ENCOUNTER 2022-10-23 12:46 | Outpatient (REF) | payer OTHER, SELFPAY ==
[2022-10-23 14:05] LABS: Erythrocyte Sedimentation Rate 21 MM/HR (0-20)
[2022-10-23 14:34] LABS: Alanine Aminotransferase 22 U/L (0-31); Albumin Level 4.5 g/dL (3.5-5.0); Alkaline Phosphatase 77 U/L (39-117); Anion Gap 15 (12-20); Aspartate Amino Transferase 24 U/L (5-31); Bilirubin Total 0.2 mg/dL (0.0-1.0); Blood Urea Nitrogen 12 mg/dL (9-16); Calcium 9.2 mg/dL (8.4-10.2); Carbon Dioxide 26 mmol/L (22-29); Chloride 106 mmol/L (96-108); Estimated Glomerular Filt Rate > 60; Glucose Random 116 mg/dL (60-115); Potassium 3.9 mmol/L (3.3-5.1); Sodium 143 mmol/L (135-145); Total Protein 7.4 g/dL (6.5-8.0)
== END 2022-10-23 12:47 | disposition home or self-care (01) ==
LOC: HO.10HDL 12:46
PROVIDERS: Visit Provider Nurse Practitioner Family
DX: M54.2 Cervicalgia (principal); M47.816 Spondylosis without myelopathy or radiculopathy, lumbar region; E55.9 Vitamin D deficiency, unspecified; M54.50 Low back pain, unspecified
CPT/HCPCS: 36415; 80053; 85652; 86140

== ENCOUNTER → 2022-10-31 09:56 | Outpatient (BNVA) | payer OTHER, SELFPAY | PROVIDERS: PCP Internal Medicine; Visit Provider Nurse Practitioner Family | DX: K21.9 Gastro-esophageal reflux disease without esophagitis (principal); K58.2 Mixed irritable bowel syndrome; K59.04 Chronic idiopathic constipation; D12.6 Benign neoplasm of colon, unspecified; Z98.890 Other specified postprocedural states | CPT/HCPCS: 99212 ==

== ENCOUNTER → 2022-12-19 10:55 | Outpatient (BNVA) | payer OTHER, SELFPAY | PROVIDERS: PCP Internal Medicine; Visit Provider Nurse Practitioner Family | DX: K58.2 Mixed irritable bowel syndrome (principal); K59.04 Chronic idiopathic constipation; K21.9 Gastro-esophageal reflux disease without esophagitis | CPT/HCPCS: 99212 ==

== ENCOUNTER 2022-12-21 13:15 | Outpatient (REF) | payer OTHER, SELFPAY ==
--- NOTE | ~2022-12-21 | XR_ITS ---
EXAMINATION: XR SHOULDER, RIGHT CLINICAL INFORMATION: Right shoulder pain COMPARISON: None available. TECHNIQUE: AP external rotation, Grashey, scapular Y, and axillary views of the right shoulder. FINDINGS: Small marginal osteophytes at the glenoid. No joint space narrowing. Minimal acromioclavicular osteoarthritis. Enthesopathic spurring is present at the greater tuberosity. No fracture or malalignment. Soft tissues are unremarkable XR/XR shoulder RT min 2V IMPRESSION: 1. Minimal acromioclavicular and glenohumeral osteoarthritis. 2. No acute osseous findings.
--- NOTE | ~2022-12-21 | XR_ITS ---
EXAMINATION: XR CERVICAL SPINE CLINICAL INFORMATION: Spondylosis without myelopathy or radiculopathy, cervical region. COMPARISON: Cervical spine MRI dated 10/18/2021 TECHNIQUE: AP, lateral, both oblique, and open mouth odontoid views of the cervical spine. FINDINGS: Vertebral alignment is normal without spondylolisthesis. Vertebral body heights are normal. No fractures are evident. Intervertebral disc heights are well-preserved. Tiny endplate osteophytes at C4-C5 and C5-C6. Mild to moderate facet arthropathy on the left at C4-C5 and more mild facet arthropathy on the right at C4-C5 and C5-C6. No osseous neural foraminal encroachment. Prevertebral soft tissues are normal. XR/XR cervical spine min 6V IMPRESSION: [id number] facet arthropathy on the left at C4-C5 and more mild facet arthropathy on the right at C4-C5 and C5-C6.
== END 2022-12-21 13:16 | disposition home or self-care (01) ==
LOC: HO.XRAY 13:15
PROVIDERS: PCP Internal Medicine; Visit Provider Nurse Practitioner Family
DX: M47.812 Spondylosis without myelopathy or radiculopathy, cervical region (principal); M79.18 Myalgia, other site; M25.511 Pain in right shoulder; R03.0 Elevated blood-pressure reading, without diagnosis of hypertension; M47.816 Spondylosis without myelopathy or radiculopathy, lumbar region
CPT/HCPCS: 72052; 73030; 99202

== ENCOUNTER → 2023-01-18 09:57 | Outpatient (BNVA) | payer OTHER, SELFPAY | PROVIDERS: PCP Internal Medicine; Visit Provider Nurse Practitioner Family | DX: M79.18 Myalgia, other site (principal); M47.816 Spondylosis without myelopathy or radiculopathy, lumbar region; M47.812 Spondylosis without myelopathy or radiculopathy, cervical region; M79.7 Fibromyalgia; R03.0 Elevated blood-pressure reading, without diagnosis of hypertension | CPT/HCPCS: 99212 ==

== ENCOUNTER 2023-02-25 11:51 | Outpatient (AMB) | payer OTHER, SELFPAY ==
[2023-02-25 11:59] VITALS: BP 135/83; PULSE 61; BMI 30.2
--- NOTE | 2023-02-25 11:59 | MHC.OFFVIS ---
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 Discussed with patient food recommended as well as food to avoid. Chronic idiopathic constipation Continue treatment with Linzess. Patient was encouraged to increase fluid intake and activity to promote better bowel motility. GERD (gastroesophageal reflux disease) Continue avoiding dietary triggers and late night snacking. Continue taking omeprazole daily and famotidine at bedtime. Patient was encouraged to stay upright for minimal 3 hours after meals. I will see patient in 6 months, sooner on as needed basis. Patient is agreeable to this plan and verbalizes understanding of instructions. Given the opportunity to ask questions and all questions answered. ? TODAY'S VISIT: Patient is here today for requested visit. Patient reports that 3 weeks ago she started with severe epigastric discomfort, nausea, vomiting. Patient reports also having diarrhea. Her symptoms since then subsided, however patient continues to have epigastric discomfort. Pain is there all the time not related to food. Patient is taking omeprazole 20 mg every morning and famotidine at bedtime. Patient feels like the medication is not helping her as much. Patient is taking Linzess and is moving her bowels without any issues. Patient denies melena, hematochezia, unintentional weight loss or ribbon like stools. Patient reports dyspepsia without dysphagia or odynophagia. 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 Chronic idiopathic constipation Fibromyalgia ROBBIE (generalized anxiety disorder) GERD (gastroesophageal reflux disease) Graves disease Graves' orbitopathy Hyperthyroidism Mild recurrent major depression Mitral valve regurgitation Obese Obesity, Class I, BMI 30-34.9 Sessile serrated polyp of colon Sinusitis Tricuspid regurgitation Uninodular goiter Vertigo Vitamin D deficiency Surgical History H/O ultrasound guided needle biopsy History of endometrial ablation History of esophagogastroduodenoscopy (EGD) Hx of colonoscopy Hx of hysterectomy S/P fine needle aspiration Family History Father CVD (cardiovascular disease) Hypertension Mother CVD (cardiovascular disease) Hypertension Diabetes Son Mental health disorder Social History Household Members: Children Housing: Apartment Alcohol intake: current Alcohol intake frequency: holidays/special occasions only Alcohol type: wine and hard liquor Patient Tobacco Use Status: Never used Tobacco e-Cigarette/Vaping Use: Never Used Second Hand Smoke Exposure: No Advance Directives Date on File: 05/18/20 service: No Current occupational status: unemployed Cognitive needs: No Hearing needs: No Vision needs: Yes Review of Systems Const Denies weight gain and Denies weight loss ENT Reports no additional complaints, Denies dysphagia and Denies odynophagia Card Reports no additional complaints Resp Reports no additional complaints GI Reports abdominal pain (EPIGASTRIC), Denies belching, Denies melena, Denies bloating, Denies change in bowel habits, Denies dysphagia, Denies excessive flatus, Denies dyspepsia, Reports heartburn, Denies diarrhea, Reports loose stools, Reports nausea (Resolved), Denies odynophagia and Denies vomiting Musc Reports no additional complaints Neuro Reports no additional complaints Psych Reports no additional complaints Endo Reports no additional complaints Physical Exam Vital Signs: Last Vital Signs Pulse 61 02/25/23 11:59 BP 135/83 02/25/23 11:59 BMI result Body Mass Index 30.2 Const General: healthy appearing, no acute distress and well developed Nutritional Appearance: obese Orientation/consciousness: patient oriented x3 HEENT Head: Yes normal to inspection, Yes normocephalic and Yes atraumatic Face and sinus: Yes normal facial exam Mouth: Normal oral and palatal mucosa present Throat: Yes posterior oropharynx normal, Yes tonsils normal and Yes uvula midline Eyes General: appearance normal, both eyes and all related structures Neck Neck: Yes normal visual inspection, Yes full ROM and Yes trachea midline Thyroid: Thyroid normal Resp Effort & Inspection: normal respiratory effort, able to speak in complete sentences, no tracheal deviation and symmetric chest movement Auscultation: clear to auscultation bilaterally Cardio Rate: regular rate Heart sounds: S1 normal heart sound present and S2 normal heart sound present GI Inspection: Yes normal to inspection, No distended and Yes obesity Palpation (GI): Soft to palpation, not firm, nontender and No hepatosplenomegaly present Auscultation: normal bowel sounds General: Yes no CVA tenderness Back/Spine/Pelvis Back: no CVA tenderness Skin General skin exam: elasticity normal, turgor normal and dry skin Neuro General: patient oriented x3 Psych Appearance: grossly normal Mental Status: mental status grossly normal Speech and movement: Normal speech and movement present Affect: normal affect Assessment & Plan Assessment & Plan (1) Chronic idiopathic constipation: Code(s): K59.04 - Chronic idiopathic constipation Plan: Continue Linzess. Patient was encouraged to increase fluid intake and activity to promote better bowel motility. (2) GERD (gastroesophageal reflux disease): Code(s): K21.9 - Gastro-esophageal reflux disease without esophagitis Qualifiers: Esophagitis presence: esophagitis presence not specified Qualified Code(s): K21.9 - Gastro-esophageal reflux disease without esophagitis Plan: Patient reports epigastric discomfort and acid reflux. Will change treatment to pantoprazole in the morning and sucralfate at bedtime. Discussed with patient avoiding dietary triggers in late night snacking. 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 Will check lipase, liver profile, Vit. D, B12 and Folate. I will see patient in June, sooner on as needed basis. Patient is agreeable to this plan and verbalizes understanding of instructions. She was given the opportunity to ask questions and all questions answered. Thank you for allowing me to participate in her care Orders: Orders Vitamin B12 and Folate Today R19.7 - Diarrhea, unspecified TSH reflex Free T4 Today K59.00 - Constipation, unspecified Vitamin D 25-OH (D2 and D3) Today E55.9 - Vitamin D deficiency, unspecified Lipase Today R10.9 - Unspecified abdominal pain Lipid Panel Today I25.10 - Atherosclerotic heart disease of [place] coronary artery without angina pectoris Liver Panel Today R10.9 - Unspecified abdominal pain Medications: New pantoprazole take one tablet half an hour before breakfast 40 mg PO DAILY 30 tabs 2RF K21.9 - Gastro-esophageal reflux disease without esophagitis sucralfate 10 mL PO BEDTIME 400 mL 3RF K21.9 - Gastro-esophageal reflux disease without esophagitis Refilled hyoscyamine sulfate 0.125 mg PO BID 30 days PRN 60 tabs 0RF dyspepsia Discontinued artificial tears(hypromellose) 0.5% Discontinued Reason: Doctor's Order 1 drp ophthalmic (eye) TID 30 days 30 mL 6RF dry eye(s) E05.00 - Thyrotoxicosis with diffuse goiter without thyrotoxic crisis or storm famotidine (Pepcid) Discontinued Reason: Doctor's Order 20 mg PO BEDTIME 30 tabs 3RF K21.9 - Gastro-esophageal reflux disease without esophagitis omeprazole Discontinued Reason: Doctor's Order 20 mg PO DAILY 90 days 90 caps 2RF Coding Level of Care Code Est Pt Level 4 (41709) Diagnoses Chronic idiopathic constipation K59.04 GERD (gastroesophageal reflux disease) K21.9 Esophagitis presence: esophagitis presence not specified 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
== END 2023-02-25 12:25 | disposition home or self-care (01) ==
PROVIDERS: PCP Internal Medicine; Visit Provider Nurse Practitioner Family
DX: K59.04 Chronic idiopathic constipation (principal); K21.9 Gastro-esophageal reflux disease without esophagitis; K22.70 Barrett's esophagus without dysplasia; R10.13 Epigastric pain
CPT/HCPCS: 99214

== ENCOUNTER → 2023-02-25 11:51 | Outpatient (BNVA) | payer OTHER, SELFPAY | PROVIDERS: PCP Internal Medicine; Visit Provider Nurse Practitioner Family | DX: K59.04 Chronic idiopathic constipation (principal); K21.9 Gastro-esophageal reflux disease without esophagitis; K22.70 Barrett's esophagus without dysplasia; R10.13 Epigastric pain | CPT/HCPCS: 99212 ==

== ENCOUNTER 2023-02-26 09:57 | Outpatient (REF) | payer OTHER, SELFPAY ==
[2023-02-26 12:57] LABS: Alanine Aminotransferase 20 U/L (0-31); Albumin Level 4.6 g/dL (3.5-5.0); Alkaline Phosphatase 76 U/L (39-117); Aspartate Amino Transferase 20 U/L (5-31); Bilirubin Direct 0.2 mg/dL (0.0-0.5); Bilirubin Total 0.4 mg/dL (0.0-1.0); Cholesterol 183 mg/dL; HDL Cholesterol 35 mg/dL; LDL Cholesterol Calculated 130 mg/dl; Lipase 14 U/L (8-78); Triglycerides 92 mg/dL
[2023-02-26 13:00] LABS: TSH reflex Free T4 1.43 uIU/mL (0.32-4.0)
[2023-02-26 13:07] LABS: Folate 11.1 ng/mL (> or = 4.0); Vitamin B12 337 pg/mL (200-900)
[2023-03-02 16:03] LABS: Vitamin D 25-OH, D2 <4 ng/mL; Vitamin D 25-OH, D3 17 ng/mL; Vitamin D 25-OH, Total 17 ng/mL (30-100)
== END 2023-02-26 09:58 | disposition home or self-care (01) ==
LOC: HO.LAB 09:57
PROVIDERS: Absent Provider Nurse Practitioner Family; PCP Internal Medicine; Visit Provider Internal Medicine
DX: E55.9 Vitamin D deficiency, unspecified (principal); R10.9 Unspecified abdominal pain; K59.00 Constipation, unspecified; R19.7 Diarrhea, unspecified; I25.10 Atherosclerotic heart disease of native coronary artery without angina pectoris
CPT/HCPCS: 36415; 80061; 80076; 82306; 82607; 82746; 83690; 84443

== ENCOUNTER 2023-05-30 14:32 | Outpatient (REF) | payer OTHER, SELFPAY | END 2023-05-30 14:33 | disposition home or self-care (01) | LOC: HO.MAMMO 14:32 | PROVIDERS: PCP Internal Medicine; Visit Provider Internal Medicine | DX: Z12.31 Encounter for screening mammogram for malignant neoplasm of breast (principal) | CPT/HCPCS: 77063; 77067 ==

== ENCOUNTER → 2023-05-30 14:45 | Outpatient (BNV) | payer OTHER, SELFPAY | PROVIDERS: PCP Internal Medicine; Visit Provider Radiology Diagnostic Radiology | DX: Z12.31 Encounter for screening mammogram for malignant neoplasm of breast (principal) | CPT/HCPCS: 77063; 77067 ==

== ENCOUNTER 2023-06-24 11:04 | Outpatient (AMB) | payer OTHER, SELFPAY ==
[2023-06-24 11:08] VITALS: BP 138/81; PULSE 76; BMI 30.6
--- NOTE | 2023-06-24 11:08 | A.OFFVIS_ITS ---
Intake Vital Signs 06/24/23 11:08 Height 5 ft Weight 156 lb 8.451 oz BMI 30.6 BP 138/81 Blood Pressure Location Rt brachial Position Sitting Pulse 76 Pulse Source Pulse Oximeter Intake Visit Reasons: 6 month follow up Intake Note: Pt presents to the office today for a 6 month follow up. Pt sattes she is feeling good. Pt states her constipation issues is doing better. Pt states she gets constipated sometimes but not as much as before. Allergies No Known Allergies Allergy (Verified 07/15/23 14:45) HPI 6 month follow up HPI Details LAST VISIT Chronic idiopathic constipation Continue Linzess. Patient was encouraged to increase fluid intake and activity to promote better bowel motility. GERD (gastroesophageal reflux disease) Patient reports epigastric discomfort and acid reflux. Will change treatment to pantoprazole in the morning and sucralfate at bedtime. Discussed with patient avoiding dietary triggers in late night snacking. 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 Will check lipase, liver profile, Vit. D, B12 and Folate. I will see patient in June, sooner on as needed basis. Patient is agreeable to this plan and verbalizes understanding of instructions. She was given the opportunity to ask questions and all questions answered. ? Thank you for allowing me to participate in her care Plan Orders Orders Vitamin B12 and Folate Today R19.7 - Diarrhea, unspecified TSH reflex Free T4 Today K59.00 - Constipation, unspecified Vitamin D 25-OH (D2 and D3) Today E55.9 - Vitamin D deficiency, unspecified Lipase Today R10.9 - Unspecified abdominal pain Lipid Panel Today I25.10 - Atherosclerotic heart disease of [place] coronary artery without angina pectoris Liver Panel Today R10.9 - Unspecified abdominal pain Medications New pantoprazole take one tablet half an hour before breakfast 40 mg PO DAILY 30 tabs 2RF K21.9 - Gastro-esophageal reflux disease without esophagitis sucralfate 10 mL PO BEDTIME 400 mL 3RF K21.9 - Gastro-esophageal reflux disease without esophagitis Refilled hyoscyamine sulfate 0.125 mg PO BID 30 days PRN 60 tabs 0RF dyspepsia Discontinued artificial tears(hypromellose) 0.5% Discontinued Reason: Doctor's Order 1 drp ophthalmic (eye) TID 30 days 30 mL 6RF dry eye(s) E05.00 - Thyrotoxicosis with diffuse goiter without thyrotoxic crisis or storm famotidine (Pepcid) Discontinued Reason: Doctor's Order 20 mg PO BEDTIME 30 tabs 3RF K21.9 - Gastro- esophageal reflux disease without esophagitis omeprazole Discontinued Reason: Doctor's Order 20 mg PO DAILY 90 days 90 caps 2RF TODAY'S VISIT Patient is here today for follow-up. Patient reports that her symptoms of acid reflux are suppressed. Patient is taking pantoprazole every morning. Take sucralfate at bedtime. For the most part her symptoms are suppressed. Patient reports occasionally forgets to take her night sucralfate, however denies any dyspepsia. Patient denies any dysphagia or odynophagia. Reports that she is moving her bowels better, however she only takes Linzess once or twice a week. Patient denies any melena, hematochezia, unintentional weight loss or ribbon like stools. Reports that she no longer has abdominal cramping maybe once or twice a month. Patient is not taking hyoscyamine, only when she really needs it. Patient reports that she is no longer bloated. Patient also states that she changed her diet and is eating better. Colonoscopy was done in October of this year and she will need to go for repeat colonoscopy in 5 years sooner if clinically necessary. 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 Chronic idiopathic constipation Sessile serrated polyp of colon Sinusitis ROBBIE (generalized anxiety disorder) Mild recurrent major depression GERD (gastroesophageal reflux disease) Fibromyalgia Obesity, Class I, BMI 30-34.9 Obese Vertigo Tricuspid regurgitation Mitral valve regurgitation Vitamin D deficiency Graves' orbitopathy Uninodular goiter Asthma Graves disease Hyperthyroidism Surgical History History of esophagogastroduodenoscopy (EGD) Hx of colonoscopy History of endometrial ablation H/O ultrasound guided needle biopsy S/P fine needle aspiration Hx of hysterectomy Family History Father CVD (cardiovascular disease) Hypertension Mother CVD (cardiovascular disease) Hypertension Diabetes Son Mental health disorder Social History Household Members: Children Housing: Apartment Alcohol intake: current Alcohol intake frequency: holidays/special occasions only Alcohol type: wine and hard liquor Patient Tobacco Use Status: Never used Tobacco e-Cigarette/Vaping Use: Never Used Second Hand Smoke Exposure: No Advance Directives Date on File: 05/18/20 service: No Current occupational status: unemployed Cognitive needs: No Hearing needs: No Vision needs: Yes Review of Systems Const Denies weight gain and Denies weight loss ENT Reports no additional complaints, Denies dysphagia and Denies odynophagia Card Reports no additional complaints Resp Reports no additional complaints GI Denies abdominal pain, Denies belching, Denies melena, Denies bloating, Denies change in bowel habits, Reports constipation (Occasional), Denies dysphagia, Denies excessive flatus, Denies dyspepsia, Reports heartburn (Occasional), De nies diarrhea, Denies loose stools, Denies nausea, Denies odynophagia and Denies vomiting Reports no additional complaints Musc Reports no additional complaints Neuro Reports no additional complaints Psych Reports no additional complaints Endo Reports no additional complaints Physical Exam Vital Signs: Last Vital Signs Pulse 76 06/24/23 11:08 BP 138/81 06/24/23 11:08 BMI result Body Mass Index 30.6 Assessment & Plan Assessment & Plan (1) 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 Patient was encouraged to increase fluid intake and activity to promote better bowel motility (3) Low vitamin D level: Code(s): R79.89 - Other specified abnormal findings of blood chemistry Plan: Continue vitamin-D supplement, will recheck vitamin-D level in 6 months (4) IBS (irritable bowel syndrome): Code(s): K58.9 - Irritable bowel syndrome without diarrhea Qualifiers: Irritable bowel syndrome type: with both diarrhea and constipation Qualified Code(s): K58.2 - Mixed irritable bowel syndrome Plan: Continue low FODMAP diet. Continue Linzess (5) GERD (gastroesophageal reflux disease): Code(s): K21.9 - Gastro-esophageal reflux disease without esophagitis Qualifiers: Esophagitis presence: esophagitis presence not specified Qualified Code(s): K21.9 - Gastro-esophageal reflux disease without esophagitis Plan: Discussed with patient avoiding dietary triggers and late night snacking. Staying upright for minimum 3 hours after meals discussed with patient continue pantoprazole in the morning half an hour before breakfast. May continue sucralfate and bed night as needed basis. Patient no longer is using hyoscyamine,, only maybe once or twice a month. I will see patient in 6 months, sooner on as needed basis. Patient is agreeable to this plan and verbalizes understanding of instructions. She was given the opportunity to ask questions and all questions answered. 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
== END 2023-06-24 11:39 | disposition home or self-care (01) ==
PROVIDERS: PCP Internal Medicine; Visit Provider Nurse Practitioner Family
DX: K22.70 Barrett's esophagus without dysplasia (principal); K59.04 Chronic idiopathic constipation; R79.89 Other specified abnormal findings of blood chemistry; K58.2 Mixed irritable bowel syndrome; K21.9 Gastro-esophageal reflux disease without esophagitis
CPT/HCPCS: 99213

== ENCOUNTER → 2023-06-24 11:04 | Outpatient (BNVA) | payer OTHER, SELFPAY | PROVIDERS: PCP Internal Medicine; Visit Provider Nurse Practitioner Family | DX: K22.70 Barrett's esophagus without dysplasia (principal); K59.04 Chronic idiopathic constipation; K58.2 Mixed irritable bowel syndrome; K21.9 Gastro-esophageal reflux disease without esophagitis; R79.89 Other specified abnormal findings of blood chemistry | CPT/HCPCS: 99212 ==

== ENCOUNTER 2023-07-08 09:50 | Outpatient (AMB) | payer OTHER, SELFPAY ==
[2023-07-08 09:52] VITALS: BP 130/80; PULSE 63; O2SAT 99; BMI 30.5
--- NOTE | 2023-07-08 09:52 | A.OFFPC_ITS ---
Vital Signs 07/08/23 09:52 Height 5 ft Weight 156 lb BMI 30.5 BP 130/80 Blood Pressure Location Lt brachial Position Sitting Pulse 63 Pulse Source Pulse Oximeter Pulse Oximetry (%) 99 Oxygen Delivery Method Room Air Intake Visit Reasons: gerd,asthma Intake Note: Patient here for a follow up GERD, Asthma Furniture Builder Required: No Accompanied by: Self / Same As Patient Allergies No Known Allergies Allergy (Verified 07/08/23 10:04) Medication List - Last Reconciled 07/08/23 by Melissa Coates MD albuterol sulfate 90 mcg/actuation (ProAir RespiClick) 2 inhalations inhalation Q6H PRN 30 days albuterol sulfate 2.5 mg (3 mL) inhalation Q6H PRN 30 days blood pressure monitor (Blood Pressure Kit) As directed cetirizine (Zyrtec) 10 mg PO DAILY PRN cholecalciferol (vitamin D3) 125 mcg PO DAILY 30 days fluticasone propionate 50 mcg/actuation (Flonase Allergy Relief) 2 sprays intranasal DAILY hyoscyamine sulfate 0.125 mg PO BID PRN 30 days linaclotide (Linzess) 145 mcg PO DAILY meclizine 25 mg PO DAILY PRN methimazole 5 mg PO DAILY mometasone-formoterol 200-5 mcg/actuation 1 puff PO BID pantoprazole 40 mg PO DAILY sucralfate 10 mL PO BEDTIME tizanidine 4 mg PO BID PRN Ventolin HFA 90 mcg/actuation (albuterol sulfate) 2 puffs inhalation Q6H PRN 30 days NS Tobacco use date assessed: 01/02/23 Dental Screening Dental Screen Date: 07/08/23 Did you have a dental visit in the last 12 months?: Yes Did you have a dental problem in the last 6 months where you did not have access to dental care?: No Was dental information given to patient?: Patient has dentist HPI HPI Comments History of Present Illness Details This is a 52-year-old female with Marmolejo's esophagus by endoscopy, Graves disease, asthma and mild major depression that comes today for follow-up on her conditions. Had an endoscopy recently showing Marmolejo's esophagus and Gastroenterology added Carafate. She said that heartburn symptoms has markedly improved. Has Graves disease on methimazole and TSH will be repeated. Will be referred to endocrinology for this matter. Asthma stable with longstanding inhaler. Depression is in remission. 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 Chronic idiopathic constipation Sessile serrated polyp of colon Sinusitis ROBBIE (generalized anxiety disorder) Mild recurrent major depression GERD (gastroesophageal reflux disease) Fibromyalgia Obesity, Class I, BMI 30-34.9 Obese Vertigo Tricuspid regurgitation Mitral valve regurgitation Vitamin D deficiency Graves' orbitopathy Uninodular goiter Asthma Graves disease Hyperthyroidism Surgical History History of esophagogastroduodenoscopy (EGD) Hx of colonoscopy History of endometrial ablation H/O ultrasound guided needle biopsy S/P fine needle aspiration Hx of hysterectomy Family History Father CVD (cardiovascular disease) Hypertension Mother CVD (cardiovascular disease) Hypertension Diabetes Son Mental health disorder Social History Household Members: Children Housing: Apartment Alcohol intake: current Alcohol intake frequency: holidays/special occasions only Alcohol type: wine and hard liquor Patient Tobacco Use Status: Never used Tobacco e-Cigarette/Vaping Use: Never Used Second Hand Smoke Exposure: No Advance Directives Date on File: 05/18/20 service: No Current occupational status: unemployed Cognitive needs: No Hearing needs: No Vision needs: Yes Questionnaire Thrive Questionnaire Date Thrive assessed: 01/02/23 ROBBIE-7 AMB Questionnaire ROBBIE-7 Date ROBBIE - 7 assessed: 01/02/23 Source: Developed by Drs. Ivan Zapata, Elvira Hernandez, Dimitri Alfred and colleagues, with an educational valdo from [employer]. Review of Systems Const All systems reviewed & are unremarkable except as noted in HPI and below Eyes Reports no additional complaints, Denies change in vision and Denies other visual disturbances Card Denies chest pain at rest, Denies chest pain with activity, Denies edema, Denies irregular heart rhythm, Denies claudication, Denies dyspnea, Denies dyspnea on exertion, Denies orthopnea, Denies paroxysmal nocturnal dyspnea and Denies slow heart rate Resp Denies cough, Denies dyspnea and Denies dyspnea on exertion GI Denies abdominal pain, Denies change in bowel habits, Denies excessive flatus, Denies nausea and Denies vomiting Denies urinary incontinence, Denies urinary hesitancy and Denies urinary urgency Musc Denies abnormal gait, Denies atrophy, Denies deformity and Denies limited range of motion Skin/Breast Denies bleeding lesions, Denies changing lesions and Denies rash Neuro Denies abnormal gait and Denies lack of coordination Physical exam (Primary Care) Vital Signs: Last Vital Signs Pulse 63 07/08/23 09:52 BP 130/80 07/08/23 09:52 Pulse Ox 99 07/08/23 09:52 Oxygen Delivery Method Room Air 07/08/23 09:52 BMI result Body Mass Index 30.5 Tobacco/Smoking Status: Tobacco use Status Tobacco use date assessed 01/02/23 07/08/23 09:57 Patient Tobacco Use Status Never used Tobacco 07/08/23 09:57 e-Cigarette/Vaping Use Never Used 07/08/23 09:57 Thrive Assessment: Date of Thrive Assessment Date Thrive assessed 01/02/23 07/08/23 09:57 Eyes General: appearance normal, both eyes and all related structures Eyelids: Yes eyelids normal Conjunctivae: conjunctivae normal Neck Neck: Yes normal visual inspection and Yes supple Resp Effort & Inspection: normal respiratory effort Auscultation: clear to auscultation bilaterally Cardio Jugular venous distension: no JVD Rate: regular rate Rhythm: regular rhythm Heart sounds: S1 normal heart sound present and S2 normal heart sound present Extrem General: Yes full ROM Assessment and Plan Assessment & Plan (1) 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 Follow up with Gastroenterology. (2) Mild recurrent major depression: Code(s): F33.0 - Major depressive disorder, recurrent, mild Plan: In remission. (3) Graves disease: Code(s): E05.00 - Thyrotoxicosis with diffuse goiter without thyrotoxic crisis or storm Plan: Continue Isidoro muscle. Repeat TSH. (4) Asthma: Code(s): J45.909 - Unspecified asthma, uncomplicated Qualifiers: Asthma severity: moderate Asthma persistence: persistent Asthma complication type: uncomplicated Qualified Code(s): J45.40 - Moderate persistent asthma, uncomplicated Plan: Continue longstanding inhaler. Use rescue inhaler as needed. Orders: Orders Thyroid Stimulating Hormone Today E05.00 - Thyrotoxicosis with diffuse goiter without thyrotoxic crisis or storm Vitamin D 25-OH Total Today E55.9 - Vitamin D deficiency, unspecified Lipid Panel Today E66.9 - Obesity, unspecified Comprehensive [place]. 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
== END 2023-07-08 10:13 | disposition home or self-care (01) ==
PROVIDERS: Visit Provider Internal Medicine
DX: K22.70 Barrett's esophagus without dysplasia (principal); F33.0 Major depressive disorder, recurrent, mild; E05.00 Thyrotoxicosis with diffuse goiter without thyrotoxic crisis or storm; J45.40 Moderate persistent asthma, uncomplicated
CPT/HCPCS: 99214

== ENCOUNTER 2023-07-15 14:12 | Outpatient (AMB) | payer OTHER, SELFPAY ==
--- NOTE | 2023-07-15 14:41 | A.OFFVIS_ITS ---
Intake Vital Signs 07/15/23 14:42 Height 5 ft Weight 157 lb 13.616 oz BMI 30.8 BP 130/82 Blood Pressure Location Lt brachial Position Sitting Pulse 72 Pulse Source Monitor Intake Visit Reasons: FU/Last seen 07/2021 Human Factors Scientist Required: No Allergies No Known Allergies Allergy (Verified 07/15/23 14:45) Medication List - Last Reconciled 07/15/23 by BRIGHT Pascal albuterol sulfate 90 mcg/actuation (ProAir RespiClick) 2 inhalations inhalation Q6H PRN 30 days albuterol sulfate 2.5 mg (3 mL) inhalation Q6H PRN 30 days blood pressure monitor (Blood Pressure Kit) As directed cetirizine (Zyrtec) 10 mg PO DAILY PRN cholecalciferol (vitamin D3) 125 mcg PO DAILY 30 days fluticasone propionate 50 mcg/actuation (Flonase Allergy Relief) 2 sprays intranasal DAILY hyoscyamine sulfate 0.125 mg PO BID PRN 30 days linaclotide (Linzess) 145 mcg PO DAILY meclizine 25 mg PO DAILY PRN methimazole 5 mg PO DAILY mometasone-formoterol 200-5 mcg/actuation 1 puff PO BID pantoprazole 40 mg PO DAILY sucralfate 10 mL PO BEDTIME tizanidine 4 mg PO BID PRN Ventolin HFA 90 mcg/actuation (albuterol sulfate) 2 puffs inhalation Q6H PRN 30 days NS HPI FU/Last seen 07/2021 HPI Cristiane Sandhu is a 52-year-old female with past medical history of obesity, fibromyalgia, GERD, anxiety who was previously evaluated for chest discomfort and shortness of breath without cardiac findings. Her last visit to our office was 07/05/2022. She now presents for follow-up. Today she states she has been getting discomfort in her chest over the last 2 years which is causing her concern. She also describes a fluttering sensation in her chest which feels like bubbles. She insists that this is not from her stomach or her throat and it is not from GERD. Her breathing is comfortable at rest. She will get some shortness of breath with activity. No clear heart palpitations, no presyncope, syncope, falls. No PND, orthopnea or edema. She reports being active throughout the day. No routine exercise. 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 Chronic idiopathic constipation Sessile serrated polyp of colon Sinusitis ROBBIE (generalized anxiety disorder) Mild recurrent major depression GERD (gastroesophageal reflux disease) Fibromyalgia Obesity, Class I, BMI 30-34.9 Obese Vertigo Tricuspid regurgitation Mitral valve regurgitation Vitamin D deficiency Graves' orbitopathy Uninodular goiter Asthma Graves disease Hyperthyroidism Surgical History History of esophagogastroduodenoscopy (EGD) Hx of colonoscopy History of endometrial ablation H/O ultrasound guided needle biopsy S/P fine needle aspiration Hx of hysterectomy Family History Father CVD (cardiovascular disease) Hypertension Mother CVD (cardiovascular disease) Hypertension Diabetes Son Mental health disorder Social History Household Members: Children Housing: Apartment Alcohol intake: current Alcohol intake frequency: holidays/special occasions only Alcohol type: wine and hard liquor Patient Tobacco Use Status: Never used Tobacco e-Cigarette/Vaping Use: Never Used Second Hand Smoke Exposure: No Advance Directives Date on File: 05/18/20 service: No Current occupational status: unemployed Cognitive needs: No Hearing needs: No Vision needs: Yes Review of Systems Const All systems reviewed & are unremarkable except as noted in HPI and below ENT Denies dizziness Card Details: discomfort and fluttering in chest Reports chest pain, Reports chest pain at rest, Reports chest pain with activity, Denies rapid heart rate, Denies pedal edema, Denies edema, Denies leg edema, Denies lightheadedness, Denies palpitations, Denies dyspnea, Denies dyspnea on exertion and Denies orthopnea Resp Denies cough, Denies dyspnea and Denies dyspnea on exertion GI Denies hematochezia and Denies change in stool character Musc Denies abnormal gait, Denies limited range of motion, Denies muscle cramps, Denies muscle weakness, Denies numbness, Denies radiating pain into limb, Denies stiffness and Denies tingling Neuro Denies abnormal gait, Denies dizziness, Denies numbness and Denies tingling Endo Denies palpitations Physical Exam Vital Signs: Last Vital Signs Pulse 72 07/15/23 14:42 BP 130/82 07/15/23 14:42 BMI result Body Mass Index 30.8 Const General: cooperative, healthy appearing, comfortable and no acute distress Orientation/consciousness: patient oriented x3 Neck Neck: Yes normal visual inspection Resp Effort & Inspection: normal respiratory effort Auscultation: clear to auscultation bilaterally, no crackles, no rales, no rhonchi and no wheezes Cardio Jugular venous distension: no JVD Rate: regular rate Rhythm: regular rhythm Heart sounds: S1 normal heart sound present, S2 normal heart sound present, no murmurs and no rubs Neuro General: patient oriented x3 Extrem General: Yes normal to inspection Psych Appearance: grossly normal Mental Status: mental status grossly normal Speech and movement: Normal speech and movement present Office Procedures EKG Details: Today, read by me, normal sinus rhythm, can not exclude anterior infarct, rate 72, QTC 444 millisecond [id number], Complete Assessment & Plan Assessment & Plan (1) Precordial chest pain: Code(s): R07.2 - Precordial pain Plan: Report of discomfort in her chest occurring randomly and was stair climbing. EKG done today showing normal sinus rhythm, no acute ST or T-wave abnormalities, due to R-wave progression can not exclude anterior infarct however could be related to lead placement, rate 72. Cardiac risk factors of obesity and age. She did have a stress test 04/2021 which did elicit atypical chest discomfort, no EKG changes. Last echocardiogram done 06/05/2022 showing EF 60%, no valve abnormalities, no regional wall motion abnormalities. At this time will do an exercise nuclear stress test to evaluate for any ischemia. Emergency care if needed for symptoms. Cardiology follow-up when test results are available. (2) Palpitation: Code(s): R00.2 - Palpitations Plan: Report of fluttering in her chest which feels like bubbles. She does not feel that this is GI related. EKG today shows sinus rhythm. Will check a Holter monitor to evaluate for any arrhythmia, atrial fibrillation. Orders: Orders ECG 3 day holter monitor Today R00.2 - Palpitations NM cardiolite stress test Today R07.2 - Precordial pain CA stress test Today R07.2 - Precordial pain Coding Level of Care Code Est Pt Level 3 (23537) Diagnoses Precordial chest pain R07.2 Palpitation R00.2 CPT Codes EKG - CPT: [id number], Complete ([id number]) Time Spent (min) 24
[2023-07-15 14:42] VITALS: BP 130/82; PULSE 72; BMI 30.8
== END 2023-07-15 15:20 | disposition home or self-care (01) ==
PROVIDERS: PCP Internal Medicine; Visit Provider Nurse Practitioner Family
DX: R07.2 Precordial pain (principal); R00.2 Palpitations
CPT/HCPCS: 93010; 99213

== ENCOUNTER → 2023-07-15 14:12 | Outpatient (BNVA) | payer OTHER, SELFPAY | PROVIDERS: PCP Internal Medicine; Visit Provider Nurse Practitioner Family | DX: R07.2 Precordial pain (principal); R00.2 Palpitations | CPT/HCPCS: 93005; 99212 ==

== ENCOUNTER → 2023-10-04 08:12 | Outpatient (REF) | payer OTHER, SELFPAY ==
--- NOTE | ~2023-10-04 | NM_ITS ---
Exercise Myocardial perfusion study Indication: Precordial chest pain to evaluate for myocardial ischemia Technique: The patient was brought in for an exercise perfusion study on 10/04/2023. Patient performed exercise as per Kelechi protocol and was injected 25 mCi of sestamibi was given intravenously one target HR was achieved. Images were obtained using the SPECT gamma camera interlaced with the gating device. Images were obtained in supine position. Resting perfusion study was performed on 10/07/2023. Patient was administered 25 mCi of sestamibi intravenously at rest. Images were then obtained in supine position. Images obtained with and without CT attenuation. Total DLP 109 mGy-cm. Images were processed with the software and compared side to side in short axis, horizontal long axis and vertical long axis views. Findings: The stress perfusion study showed both attenuated as well as non attenuated corrected images show normal uptake of radiotracer in all segments of LV myocardium.. The gated study shows normal LV systolic function with calculated LVEF of 66%. LV cavity is normal in size. The gated study shows normal systolic wall thickening and contraction of all segments. There is no transient ischemic dilation. Resting study shows non attenuated images are within normal limits. Gating at rest reveals systolic wall motion with ejection fraction at 53%. The findings are consistent with normal myocardial perfusion. NM/NM cardiolite stress test Impression: 1. Normal myocardial perfusion 2. Gated LVEF is 56% 3. Transient ischemic dilatation not present Stress EKG is negative for ischemia
--- NOTE | 2023-10-04 08:18 | CA_ITS ---
Acquisition Time: 2023-10-04 08:20:26 Total Exercise Time: 00:05:02 Test Indications: Dyspnea Medications: SEE H Protocol: MICHEAL Max HR: 153 BPM 90% of Pred: 169 BPM Max BP: 148/082 mmHG Max Work Load: 7.0 METS Exercise stress test exercise 5 min 2 sec of Micheal protocol achieving 90% MPHR, with mild SOB, 3/10 chest stabbing at baseline 4/10 at peak, with isolated PVC, with normotensive response to exercise, without EKG changes. Chest pain returned to baseline at rest. Nuclear images pending. Test reviewed with Dr. Keen. Referred By: Lesley Bran Overread By: Maeve Valenzuela
--- NOTE | 2023-10-04 08:18 | HM_ITS ---
Conclusion: 1. Patient was monitored for total period of 2 days and 23 hours 2. Baseline was normal sinus rhythm with average heart of 80 beats per minute 3. No significant arrhythmias or pauses noted 4. Patient reported 4 symptoms, heart racing, chest pain, shortness of breath all of them correlating with sinus tachycardia MTDD
[2023-10-04 09:48] LABS: MANUAL DIFF FLAG NO
[2023-10-04 10:44] LABS: Basophils Percent Auto 0.5 % (0-2); Eosinophils Percent Auto 0.5 % (0-4); Hemoglobin 12.9 g/dl (12.0-16.0); Imm Gran Abs Auto 0.03 X10*3/uL (0.00-0.03); Imm Gran Pct Auto 0.4 % (0.0-0.4); Lymphocytes Absolute Auto 2.8 X10*3/uL (1.2-4.9); Lymphocytes Percent Auto 34.1 % (20-40); Mean Corpuscular HGB Conc 33.1 g/dl (31.0-35.0); Mean Corpuscular Hemoglobin 29.3 pg (27.0-33.0); Mean Corpuscular Volume 88.4 fL (80.0-98.0); Mean Platelet Volume 8.8 fL (9.4-12.3); Monocytes Absolute Auto 0.6 X10*3/uL (0.1-1.2); Monocytes Percent Auto 7.7 % (2-11); Neutrophils Absolute Auto 4.7 x10*3/uL (2.0-8.3); Neutrophils Percent Auto 56.8 % (45-73); Platelet Count 275 X10*3/uL (160-400); Red Blood Count 4.41 X10*6/uL (4.20-5.50); White Blood Count 8.3 X10*3/uL (4.8-10.8)
[2023-10-04 11:29] LABS: Alanine Aminotransferase 21 U/L (0-31); Albumin Level 4.6 g/dL (3.5-5.0); Alkaline Phosphatase 79 U/L (39-117); Anion Gap 13 (12-20); Aspartate Amino Transferase 21 U/L (5-31); Bilirubin Total 0.4 mg/dL (0.0-1.0); Blood Urea Nitrogen 13 mg/dL (9-16); Calcium 9.7 mg/dL (8.4-10.2); Carbon Dioxide 27 mmol/L (22-29); Chloride 107 mmol/L (96-108); Cholesterol 210 mg/dL (<200); Estimated Glomerular Filt Rate > 60; Glucose Fasting 89 mg/dL (60-99); HDL Cholesterol 36 mg/dL (>40); LDL Cholesterol Calculated 149 mg/dL (<100); Potassium 3.6 mmol/L (3.3-5.1); Sodium 143 mmol/L (135-145); Total Protein 7.8 g/dL (6.5-8.0); Triglycerides 127 mg/dL (<150)
[2023-10-04 11:46] LABS: Thyroid Stimulating Hormone 1.16 uIU/mL (0.32-4.0); Vitamin D 25-OH Total 29.5 ng/mL (>30)
== END ==
LOC: HO.CARD 08:12
PROVIDERS: Absent Provider Internal Medicine; PCP Internal Medicine; Visit Provider Nurse Practitioner Family
DX: R07.2 Precordial pain (principal); R00.2 Palpitations; R06.02 Shortness of breath; E66.9 Obesity, unspecified; E05.00 Thyrotoxicosis with diffuse goiter without thyrotoxic crisis or storm; E55.9 Vitamin D deficiency, unspecified
CPT/HCPCS: 36415; 78452; 80053; 80061; 82306; 84443; 85025; 93017; 93242; A9500

== ENCOUNTER → 2023-10-04 08:18 | Outpatient (BNV) | payer OTHER, SELFPAY | PROVIDERS: Absent Provider Internal Medicine; PCP Internal Medicine; Visit Provider Nurse Practitioner | DX: R00.2 Palpitations (principal) | CPT/HCPCS: 78452; 93016; 93018; 93244 ==

== ENCOUNTER 2023-10-11 12:45 | Outpatient (AMB) | payer OTHER, SELFPAY ==
--- NOTE | 2023-10-11 13:01 | MHC.OFFVIS ---
Intake Vital Signs 10/11/23 13:09 Height 5 ft Weight 156 lb 8.451 oz BMI 30.6 BP 130/68 Blood Pressure Location Lt brachial Position Sitting Pulse 78 Intake Visit Reasons: f/u after testing Intake Note: follow up after stress and images Allergies No Known Allergies Allergy (Verified 10/11/23 13:10) HPI HPI Comments History of Present Illness Details 53-year-old female presents [facility] a follow-up after testing. She had a stress mibi and holter monitor for palpitations, shortness of breath on exertion, and chest pains. She has a medical history of obesity, fibromylagia, GERD, and anxiety. She reports she has been doing well and still occasionally gets symptoms. Mostly when she is going up stairs to her apartment. 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 Chronic idiopathic constipation Sessile serrated polyp of colon Sinusitis ROBBIE (generalized anxiety disorder) Mild recurrent major depression GERD (gastroesophageal reflux disease) Fibromyalgia Obesity, Class I, BMI 30-34.9 Obese Vertigo Tricuspid regurgitation Mitral valve regurgitation Vitamin D deficiency Graves' orbitopathy Uninodular goiter Asthma Graves disease Hyperthyroidism Surgical History History of esophagogastroduodenoscopy (EGD) Hx of colonoscopy History of endometrial ablation H/O ultrasound guided needle biopsy S/P fine needle aspiration Hx of hysterectomy Family History Father CVD (cardiovascular disease) Hypertension Mother CVD (cardiovascular disease) Hypertension Diabetes Son Mental health disorder Social History Household Members: Children Housing: Apartment Alcohol intake: current Alcohol intake frequency: holidays/special occasions only Alcohol type: wine and hard liquor Patient Tobacco Use Status: Never used Tobacco e-Cigarette/Vaping Use: Never Used Second Hand Smoke Exposure: No Advance Directives Date on File: 05/18/20 service: No Current occupational status: unemployed Cognitive needs: No Hearing needs: No Vision needs: Yes Review of Systems Const Denies chills, Denies fatigue, Denies fever(s), Denies frequent falls, Denies weakness, Denies weight gain and Denies weight loss ENT Denies dizziness Card Denies chest pain, Denies leg edema, Denies lightheadedness, Denies palpitations, Denies dyspnea, Denies dyspnea on exertion, Denies orthopnea and Denies other (loss of consciousness) Resp Denies cough, Denies dyspnea and Denies dyspnea on exertion GI Denies hematochezia and Denies change in stool character Musc Denies abnormal gait, Denies muscle weakness, Denies numbness, Denies radiating pain into limb and Denies tingling Neuro Denies abnormal gait, Denies dizziness, Denies frequent falls, Denies numbness, Denies tingling and Denies weakness Endo Denies fatigue and Denies palpitations Physical Exam Vital Signs: Last Vital Signs Pulse 78 10/11/23 13:09 BP 130/68 10/11/23 13:09 BMI result Body Mass Index 30.6 Results Reviewed Results Reviewed: NM/NM cardiolite stress test Impression: 1. Normal myocardial perfusion 2. Gated LVEF is 56% 3. Transient ischemic dilatation not present Stress EKG is negative for ischemia Holter: Conclusion: 1. Patient was monitored for total period of 2 days and 23 hours 2. Baseline was normal sinus rhythm with average heart of 80 beats per minute 3. No significant arrhythmias or pauses noted 4. Patient reported 4 symptoms, heart racing, chest pain, shortness of breath all of them correlating with sinus tachycardia Assessment & Plan Assessment & Plan (1) Palpitation: Code(s): R00.2 - Palpitations (2) SOB (shortness of breath): Code(s): R06.02 - Shortness of breath (3) Precordial chest pain: Code(s): R07.2 - Precordial pain Plan Patient reports she still sometimes gets symptoms. Heart rate fastest 55-134 bpm on holter with no significant arrhythmias. Symptoms associated with normal sinus or sinus tachycardia. Nuclear imaging showed normal myocardial perfusion. She is going to reduce caffeine intake, exercise more, and try stress reduction. She states she is very stressed. She reports she wants to try these methods first. Will follow-up in six months time or sooner if needed. ED care if needed. Coding Level of Care Code Est Pt Level 3 (14939) Diagnoses Palpitation R00.2 SOB (shortness of breath) R06.02 Precordial chest pain R07.2
[2023-10-11 13:09] VITALS: BP 130/68; PULSE 78; BMI 30.6
== END 2023-10-11 13:26 | disposition home or self-care (01) ==
PROVIDERS: PCP Internal Medicine; Visit Provider Nurse Practitioner
DX: R00.2 Palpitations (principal); R06.02 Shortness of breath; R07.2 Precordial pain
CPT/HCPCS: 99213

== ENCOUNTER → 2023-10-11 12:45 | Outpatient (BNVA) | payer OTHER, SELFPAY | PROVIDERS: PCP Internal Medicine; Visit Provider Nurse Practitioner | DX: R00.2 Palpitations (principal); R06.02 Shortness of breath; R07.2 Precordial pain | CPT/HCPCS: 99212 ==

== ENCOUNTER 2023-10-24 11:07 | Outpatient (AMB) | payer OTHER, SELFPAY ==
--- NOTE | 2023-10-24 11:23 | MHC.OFFVIS ---
Intake Vital Signs 10/24/23 11:24 Height 5 ft Weight 157 lb 3.033 oz BMI 30.7 BP 120/82 Blood Pressure Location Rt brachial Position Sitting Pulse 86 Pulse Source Pulse Oximeter Temp 97.7 F Temp Source Skin Pulse Oximetry (%) 97 Oxygen Delivery Method Room Air Intake Visit Reasons: cervicalgia/ fibromyaligia/CONFIRMED Intake Note: Patient last seen 10/23/[address] Clements, presents today for yearly follow up. c/o left shoulder pain x 1 mo and limited ROM Vice President Planning Required: No Accompanied by: Self / Same As Patient Allergies No Known Allergies Allergy (Verified 10/24/23 11:23) HPI HPI Comments History of Present Illness Details Ms. Camacho 53-year-old female presents for follow-up of fibromyalgia. She has been experiences much of the same symptoms as outlined below. She has not a constant medication but takes tizanidine p.r.n. but she reports that she takes her medication when she remembers and has to do better at taking them. She continues with sleeping challenges she says she has to turn from 1 side to the other to get some relief because of the pain in her hips. October 2022 visit Yvonne: 52yoF presents for follow-up of neck pain. Last seen September 2021. She presents today with her daughter. Patient reports continued chronic neck pain that has been present for years. She tried PT and felt it made her symptoms worse. Patient reports her pain is always present. She states her pain is strong, and she feels that something is pinching . She states when her pain is very severe it causes nausea. She denies numbness. She states that her pain is exacerbated by mopping and cleaning her house. She states that tylenol and tizanidine help and she is taking these as needed. She is requesting a refill of her tizanidine. She was previously taking gabapentin but did not find this helpful. She reports that she has fibromyalgia. She states that her sleep is disrupted. She admits to depression and follows with therapist and psychiatrist. She admits to head to toe pain and states she is not physically active. She states that her neck pain started age 38. She reports intermittent back pain as well. She states her pain wakes her up in the second half of the night. Her pain is improved some with tylenol and position change. She denies bladder involvement. Denies history of iritis, uveitis, Raynaud's, fever, oral ulcer or inflammatory bowel disease. [facility] Medical History (Updated 10/24/23 @ 14:[address] 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 Chronic idiopathic constipation Sessile serrated polyp of colon Sinusitis ROBBIE (generalized anxiety disorder) Mild recurrent major depression GERD (gastroesophageal reflux disease) Fibromyalgia Obesity, Class I, BMI 30-34.9 Obese Vertigo Tricuspid regurgitation Mitral valve regurgitation Vitamin D deficiency Graves' orbitopathy Uninodular goiter Asthma Graves disease Hyperthyroidism Surgical History History of esophagogastroduodenoscopy (EGD) Hx of colonoscopy History of endometrial ablation H/O ultrasound guided needle biopsy S/P fine needle aspiration Hx of hysterectomy Family History Father CVD (cardiovascular disease) Hypertension Mother CVD (cardiovascular disease) Hypertension Diabetes Son Mental health disorder Social History Household Members: Children Housing: Apartment Alcohol intake: current Alcohol intake frequency: holidays/special occasions only Alcohol type: wine and hard liquor Patient Tobacco Use Status: Never used Tobacco e-Cigarette/Vaping Use: Never Used Second Hand Smoke Exposure: No Advance Directives Date on File: 05/18/20 service: No Current occupational status: unemployed Cognitive needs: No Hearing needs: No Vision needs: Yes Review of Systems Const All systems reviewed & are unremarkable except as noted in HPI and below Physical Exam Vital Signs: Last Vital Signs Temp 97.7 F 10/24/23 11:24 Pulse 86 10/24/23 11:24 BP 120/82 10/24/23 11:24 Pulse Ox 97 10/24/23 11:24 Oxygen Delivery Method Room Air 10/24/23 11:24 BMI result Body Mass Index 30.7 APPEARANCE: Patient in no acute distress, groomed and nourished EYES: no redness, eyelids normal EARS: External ear normal NOSE/SINUS: Airflow through both nares, no nasal discharge, no bleeding THROAT: Oral mucosa moist, no ulcerations NECK: No thyromegaly or masses, no adenopathy, trachea midline. HEART: Regular rhythm, S1-S2 heard, no murmurs, rubs or gallops. LUNG: Clear to auscultation, respiratory rate regular and nonlabored. EXTREMITIES: No edema, no calf tenderness, normal peripheral pulses. NEURO: Oriented and alert x3. No focal weakness. Gait normal. SKIN: No inflammatory or neoplastic lesions. Normal color and turgor JOINT EXAM:? Cervical Spine: Full range of motion with pain during right rotation. No tenderness palpation of the cervical spine. Slight tenderness to palpation of cervical spinal muscles. Thoracic Spine:? No scoliosis.? No tenderness on palpation. Lumbar Spine:? Alignment normal.? Full range of motion with pain during flexion and extension. Tenderness to palpation over the lumbar spine. Negative Mo test. Hands:? Normal pain-free range of motion without swelling, increased warmth or erythema. 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 Widespread diffuse tenderness to palpation reported throughout the hands. Wrists:? Normal pain-free range of motion without tenderness, swelling, increased warmth or erythema. Widespread diffuse tenderness to palpation of the upper arms. Elbows: Normal pain-free range of motion without tenderness, swelling, increased warmth or erythema. Shoulders:?? Full range of motion without pain. No tenderness, weakness, swelling, increased warmth or erythema. Hips:? Full range of motion without pain. Low back pain with hip range of motion. Hip bursa:? Moderate tenderness bilaterally Knees:? Normal pain-free range of motion without tenderness, swelling, increased warmth or erythema.? There is no effusion or crepitation. Widespread diffuse tenderness to palpation down the shins. Ankles:? Normal pain-free range of motion without tenderness, swelling, increased warmth or erythema. Feet:? Normal pain-free range of motion without tenderness, swelling, increased warmth or erythema. Tender points: Tenderness to digital palpation at the occiput, trapezius, second rib, lateral epicondyle, knees, greater trochanter and gluteal area bilaterally. Results Reviewed Results Reviewed: Laboratory Tests 11/08/21 11/08/21 05/30/22 11:23 11:23 11:34 WBC 8.7 Hgb 12.7 Hct 38.7 Plt Count 304 Sodium 139 Potassium 4.1 BUN 13 Creatinine 0.65 Random Glucose 90 Calcium 10.0 AST 20 ALT 19 25-OH Vitamin D Total 10.2 TSH 1.74 Labs 10/21/2015 [facility] [place]: TING negative, rheumatoid factor negative, uric acid normal 3.7 Ordering Physician: Atiya Landis NP Date of Service: 10/18/21 Procedure(s): MR cervical spine wo con Accession Number(s): [id number] cc: Atiya Landis EDUCATION REP~ EXAMINATION: MR CERVICAL SPINE WITHOUT CONTRAST CLINICAL INFORMATION: Cervicalgia. COMPARISON: None available. TECHNIQUE: MRI of the cervical spine was performed using routine sequences without contrast. FINDINGS: The cervical vertebral bodies maintain normal heights and alignment. The disc heights appear preserved. There is no bone marrow edema. The cervical cord signal appears normal. There is no disc herniation. No spinal canal or neural foraminal stenosis is seen. The imaged portions of the intracranial contents and extraspinal soft tissues appear normal. MR/MR cervical spine wo con IMPRESSION: No significant abnormality is seen. No spinal canal or neural foraminal stenosis. Ordering Physician: Carlitos Strickland MD Date of Service: 11/08/21 Procedure(s): XR lumbar spine 2-3V Accession Number(s): [id number] cc: Carlitos Strickland MD~ EXAMINATION: XR LUMBOSACRAL SPINE CLINICAL INFORMATION: Low back pain COMPARISON: 10/21/2015 TECHNIQUE: Three views of the lumbosacral spine. FINDINGS: No acute fracture or traumatic malalignment. Mild levoconvex lumbar scoliosis, apex left at L2-L3. Small endplate osteophytes present throughout the lumbar spine. Moderate facet arthropathy L4-L5 and L5-S1. Disc space heights are relatively preserved. Sacroiliac joints unremarkable. Paraspinal soft tissues unremarkable. XR/XR lumbar spine 2-3V IMPRESSION: No acute findings. Lumbar spondylosis as described Assessment & Plan Assessment & Plan (1) Neck pain: Code(s): M54.2 - Cervicalgia Plan: Referral placed to Pain Management. Tizanidine renewed. (2) Lumbar spondylosis: Code(s): M47.816 - Spondylosis without myelopathy or radiculopathy, lumbar region Plan: Referral placed to pain management. (3) Vitamin D deficiency: Code(s): E55.9 - Vitamin D deficiency, unspecified Plan: Will update vitamin-D and replete as needed. (4) Bilateral hip bursitis: Code(s): M70.71 - Other bursitis of hip, right hip; M70.72 - Other bursitis of hip, left hip Qualifiers: Hip bursitis location: trochanteric bursitis Qualified Code(s): M70.61 - Trochanteric bursitis, right hip; M70.62 - Trochanteric bursitis, left hip Plan Patient continues with chronic neck pain and total body. X-ray of her cervical spine from 2019 was essentially normal other than a possible muscle spasm. Cervical spine MRI was also normal. On exam patient has tenderness to palpation of the cervical spinal muscles and fibromyalgia tender points. She previously had some relief of symptoms with tizanidine but does not take it regularly.. Fibromyalgia discussed again in detail with encouragement to incorporate light daily activity and continue follow-up with mental health. I gave her some exercises for Hip bursitis, she refused injection offer today and does not want to go back to PT. She says PT makes her joints hurt more. She continues without signs of active synovitis on exam which would suggest active inflammatory joint disease today. She will continue on vitamin-D supplements. Patient to follow-up 6 months or sooner if needed. 40 minutes spent reviewing chart and history, evaluating patient and documenting. Coding Level of Care Code Est Pt Level 4 (76697) Diagnoses Neck pain M54.2 Lumbar spondylosis M47.816 Vitamin D deficiency E55.9 Trochanteric bursitis of both hips M70.61; M70.62 Hip bursitis location: trochanteric bursitis
[2023-10-24 11:24] VITALS: BP 120/82; PULSE 86; TEMP 36.5; O2SAT 97; BMI 30.7
== END 2023-10-24 12:09 | disposition home or self-care (01) ==
PROVIDERS: PCP Internal Medicine; Visit Provider Nurse Practitioner Family
DX: M54.2 Cervicalgia (principal); M47.816 Spondylosis without myelopathy or radiculopathy, lumbar region; E55.9 Vitamin D deficiency, unspecified; M70.61 Trochanteric bursitis, right hip; M70.62 Trochanteric bursitis, left hip
CPT/HCPCS: 99214

== ENCOUNTER → 2023-10-24 11:07 | Outpatient (BNVA) | payer OTHER, SELFPAY | PROVIDERS: PCP Internal Medicine; Visit Provider Nurse Practitioner Family | DX: M54.2 Cervicalgia (principal); M47.816 Spondylosis without myelopathy or radiculopathy, lumbar region; M70.61 Trochanteric bursitis, right hip; M70.62 Trochanteric bursitis, left hip; E55.9 Vitamin D deficiency, unspecified | CPT/HCPCS: 99212 ==

== ENCOUNTER 2023-12-23 11:01 | Outpatient (AMB) | payer OTHER, SELFPAY ==
--- NOTE | 2023-12-23 11:05 | MHC.OFFVIS ---
Vital Signs 12/23/23 11:07 Height 5 ft Weight 154 lb 5.177 oz BMI 30.1 BP 136/83 Blood Pressure Location Lt brachial Position Sitting Pulse 59 Intake Visit Reasons: 6 mnth follow up Intake Note: Edson presents in the offie as a 6 month follow up. CC: She states she has a little pain but could be because she had pizza last night - other than that no other concerns. 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 Patient was encouraged to increase fluid intake and activity to promote better bowel motility Low vitamin D level Continue vitamin-D supplement, will recheck vitamin-D level in 6 months IBS (irritable bowel syndrome) Continue low FODMAP diet. Continue Linzess GERD (gastroesophageal reflux disease) Discussed with patient avoiding dietary triggers and late night snacking. Staying upright for minimum 3 hours after meals discussed with patient continue pantoprazole in the morning half an hour before breakfast. May continue sucralfate and bed night as needed basis. Patient no longer is using hyoscyamine,, only maybe once or twice a month. I will see patient in 6 months, sooner on as needed basis. Patient is agreeable to this plan and verbalizes understanding of instructions. She was given the opportunity to ask questions and all questions answered. ? Thank you for allowing me to participate in her care Plan Medications Refilled linaclotide (Linzess) 145 mcg PO DAILY 90 caps 3RF K59.04 pantoprazole take one tablet half an hour before breakfast 40 mg PO DAILY 90 tabs 2RF K21.9 sucralfate 10 mL PO BEDTIME 400 mL 3RF K21.9 TODAY'S VISIT: Patient is here today for follow-up. Patient reports that she has been doing better, however occasionally she will continue to have epigastric discomfort postprandially and acid reflux. Patient admits to eating food sometimes that might cause her having those symptoms. Patient states that she has to take pantoprazole in the afternoon otherwise she will have acid reflux. Patient is taking sucralfate at bedtime as well. Patient admits to be eating late at night sometimes. Patient reports that she had pizza last night and this morning she has left upper quadrant pain. Patient states that she is using Linzess and is going to the bathroom daily. Patient denies any nausea or vomiting. Reports dyspepsia without dysphagia or odynophagia. Patient denies any other GI concerning symptoms. 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 Chronic idiopathic constipation Sessile serrated polyp of colon Sinusitis ROBBIE (generalized anxiety disorder) Mild recurrent major depression GERD (gastroesophageal reflux disease) Fibromyalgia Obesity, Class I, BMI 30-34.9 Obese Vertigo Tricuspid regurgitation Mitral valve regurgitation Vitamin D deficiency Graves' orbitopathy Uninodular goiter Asthma Graves disease Hyperthyroidism Surgical History History of esophagogastroduodenoscopy (EGD) Hx of colonoscopy History of endometrial ablation H/O ultrasound guided needle biopsy S/P fine needle aspiration Hx of hysterectomy Family History Father CVD (cardiovascular disease) Hypertension Mother CVD (cardiovascular disease) Hypertension Diabetes Son Mental health disorder Social History Household Members: Children Housing: Apartment Alcohol intake: current Alcohol intake frequency: holidays/special occasions only Alcohol type: wine and hard liquor Patient Tobacco Use Status: Never used Tobacco e-Cigarette/Vaping Use: Never Used Second Hand Smoke Exposure: No Advance Directives Date on File: 05/18/20 service: No Current occupational status: unemployed Cognitive needs: No Hearing needs: No Vision needs: Yes Review of Systems Const Denies weight gain and Denies weight loss ENT Reports no additional complaints, Denies dysphagia and Denies odynophagia Card Reports no additional complaints Resp Reports no additional complaints GI Reports abdominal pain (Epigastric, occasionally), Denies belching, Denies melena, Denies bloating, Denies change in bowel habits, Denies dysphagia, Denies excessive flatus, Denies dyspepsia, Reports heartburn, Denies diarrhea, Denies loose stools, Denies nausea, Denies odynophagia and Denies vomiting Musc Reports no additional complaints Neuro Reports no additional complaints Psych Reports no additional complaints Endo Reports no additional complaints Physical Exam Vital Signs: Last Vital Signs Pulse 59 12/23/23 11:07 BP 136/83 12/23/23 11:07 BMI result Body Mass Index 30.1 Const General: healthy appearing and no acute distress Nutritional Appearance: obese Orientation/consciousness: patient oriented x3 Resp Effort & Inspection: normal respiratory effort, able to speak in complete sentences, no tracheal deviation and symmetric chest movement Auscultation: clear to auscultation bilaterally Cardio Rate: regular rate Heart sounds: S1 normal heart sound present and S2 normal heart sound present GI Inspection: Yes normal to inspection, No distended and Yes obesity Palpation (GI): Soft to palpation, not firm, nontender and No hepatosplenomegaly present Auscultation: normal bowel sounds General: Yes no CVA tenderness Back/Spine/Pelvis Back: no CVA tenderness Skin General skin exam: elasticity normal, turgor normal and dry skin Neuro General: patient oriented x3 Psych Appearance: grossly normal Mental Status: mental status grossly normal Assessment & Plan Assessment & Plan (1) 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: Code(s): K22.70 - Marmolejo's esophagus without dysplasia Category: Medical (2) Chronic idiopathic constipation: Code(s): K59.04 - Chronic idiopathic constipation Category: Medical (3) Low vitamin D level: Code(s): R79.89 - Other specified abnormal findings of blood chemistry Category: Medical (4) IBS (irritable bowel syndrome): Code(s): K58.9 - Irritable bowel syndrome without diarrhea Category: Medical Qualifiers: Irritable bowel syndrome type: with both diarrhea and constipation Qualified Code(s): K58.2 - Mixed irritable bowel syndrome (5) GERD (gastroesophageal reflux disease): Code(s): K21.9 - Gastro-esophageal reflux disease without esophagitis Category: Medical Qualifiers: Esophagitis presence: esophagitis presence not specified Qualified Code(s): K21.9 - Gastro-esophageal reflux disease without esophagitis (6) Postprandial abdominal bloating: Code(s): R14.0 - Abdominal distension (gaseous) (7) Postprandial epigastric pain: Code(s): R10.13 - Epigastric pain Plan Patient will stop taking pantoprazole and start taking Nexium every morning. Avoid dietary triggers and late night snacking. Smaller meals and more often. Staying upright for minimum 3 hours after meals discussed with her. Continue taking Linzess. Increase fluid intake and activity to promote better bowel motility. Follow-up in the office in 3 months, sooner on as needed basis. Patient is agreeable to this plan and verbalizes understanding of instructions. She was given the opportunity to ask questions and all questions answered. 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
[2023-12-23 11:07] VITALS: BP 136/83; PULSE 59; BMI 30.1
== END 2023-12-23 11:23 | disposition home or self-care (01) ==
PROVIDERS: PCP Internal Medicine; Visit Provider Nurse Practitioner Family
DX: K22.70 Barrett's esophagus without dysplasia (principal); K59.04 Chronic idiopathic constipation; R79.89 Other specified abnormal findings of blood chemistry; K58.2 Mixed irritable bowel syndrome; K21.9 Gastro-esophageal reflux disease without esophagitis; R14.0 Abdominal distension (gaseous); R10.13 Epigastric pain
CPT/HCPCS: 99213

== ENCOUNTER → 2023-12-23 11:01 | Outpatient (BNVA) | payer OTHER, SELFPAY | PROVIDERS: PCP Internal Medicine; Visit Provider Nurse Practitioner Family | DX: K22.70 Barrett's esophagus without dysplasia (principal); K59.04 Chronic idiopathic constipation; K58.2 Mixed irritable bowel syndrome; K21.9 Gastro-esophageal reflux disease without esophagitis; R79.89 Other specified abnormal findings of blood chemistry; R14.0 Abdominal distension (gaseous); R10.13 Epigastric pain | CPT/HCPCS: 99212 ==

== ENCOUNTER 2024-01-07 08:16 | Outpatient (AMB) | payer OTHER, SELFPAY ==
[2024-01-07 08:46] VITALS: BP 122/78; PULSE 72; O2SAT 98; BMI 30.3
--- NOTE | 2024-01-07 08:46 | MHC.PC.OV ---
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 Required: No Accompanied by: Self / Same As Patient Allergies No Known Allergies Allergy (Verified 01/07/24 09:09) Medication List - Last Reconciled 01/07/24 by Melissa Coates MD albuterol sulfate 90 mcg/actuation (ProAir RespiClick) 2 inhalations inhalation Q6H PRN 30 days albuterol sulfate 2.5 mg (3 mL) inhalation Q6H PRN 30 days blood pressure monitor (Blood Pressure Kit) As directed buspirone 5 mg PO BID cetirizine (Zyrtec) 10 mg PO DAILY PRN cholecalciferol (vitamin D3) 125 mcg PO DAILY 30 days esomeprazole magnesium (Nexium) 40 mg PO DAILY fluticasone propionate 50 mcg/actuation (Flonase Allergy Relief) 2 sprays intranasal DAILY hyoscyamine sulfate 0.125 mg PO BID PRN ketotifen fumarate 0.025%(0.035%) (Eye Itch Relief) drps ophthalmic (eye) linaclotide (Linzess) 145 mcg PO DAILY meclizine 25 mg PO DAILY PRN methimazole 5 mg PO DAILY mometasone-formoterol 200-5 mcg/actuation 1 puff PO BID sucralfate 10 mL PO BEDTIME tizanidine 4 mg PO BID PRN Ventolin HFA 90 mcg/actuation (albuterol sulfate) 2 puffs inhalation Q6H PRN 30 days NS zolpidem mg PO Tobacco use date assessed: 01/07/24 Dental Screening Dental Screen Date: 01/07/24 Did you have a dental visit in the last 12 months?: Yes Did you have a dental problem in the last 6 months where you did not have access to dental care?: No Was dental information given to patient?: Patient has dentist HPI HPI Comments History of Present Illness Details This is a 53-year-old female with mild recurrent major depression that comes for her physical exam. Depression has been stable and follow by Psychiatry. No need for Pap smear due to hysterectomy for benign reasons. Mammogram done 05/24/2023 and was normal. Colonoscopy was done 2022. No chest pain or shortness on breath. 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 Chronic idiopathic constipation Sessile serrated polyp of colon Sinusitis ROBBIE (generalized anxiety disorder) Mild recurrent major depression GERD (gastroesophageal reflux disease) Fibromyalgia Obesity, Class I, BMI 30-34.9 Obese Vertigo Tricuspid regurgitation Mitral valve regurgitation Vitamin D deficiency Graves' orbitopathy Uninodular goiter Asthma Graves disease Hyperthyroidism Surgical History History of esophagogastroduodenoscopy (EGD) Hx of colonoscopy History of endometrial ablation H/O ultrasound guided needle biopsy S/P fine needle aspiration Hx of hysterectomy Family History Father CVD (cardiovascular disease) Hypertension Mother CVD (cardiovascular disease) Hypertension Diabetes Son Mental health disorder Social History Household Members: Children Housing: Apartment Alcohol intake: current Alcohol intake frequency: holidays/special occasions only Alcohol type: wine and hard liquor Patient Tobacco Use Status: Never used Tobacco e-Cigarette/Vaping Use: Never Used Second Hand Smoke Exposure: No Advance Directives Date on File: 05/18/20 service: No Current occupational status: unemployed Cognitive needs: No Hearing needs: No Vision needs: Yes Questionnaire PHQ-9 Over the last 2 weeks, how often have you been bothered by any of the following problems? 1. Little interest or pleasure in doing things: several days 2. Feeling down, depressed, or hopeless: several days 3. Trouble falling or staying asleep, or sleeping too much: several days 4. Feeling tired or having little energy: nearly every day 5. Poor appetite or overeating: several days 6. Feeling bad about yourself - or that you are a failure or have let yourself or your family down: several days 7. Trouble concentrating on things, such as reading the newspaper or watching television: not at all 8. Moving or speaking so slowly that other people could have noticed. Or the opposite - being so fidgety or restless that you have been moving around a lot more than usual: not at all 9. Thoughts that you would be better off or of hurting yourself in some way: not at all Total score: 8 Depression Screening Interpretation: Positive Depression Screening Follow-up: Existing condition, Community Mental Health Worker F/U and Follow-up Visit Requested Depression Screening Done: Yes 41798 - PHQ-9 Billing: Yes Source: Developed by Drs. Ivan Zapata, Elvira Hernandez, Dimitri Alfred and colleagues, with an educational valdo from [employer]. Thrive Questionnaire Date Thrive assessed: 01/07/24 I am a: Patient What is your living situation today?: I have a steady place to live Within the past 12 months, did the food you bought not last and you didn't have the money to get more?: Never true Within the past 12 months, did you worry whether your food would run out before you got money to buy more?: Never true Do you have trouble paying for medicines?: No Do you have trouble getting transportation to medical appointments?: No Do you have trouble paying your heating and electricity bill?: No Do you have trouble taking care of your child, family member or friend?: No Do you have trouble with day-to-day activities such as bathing, preparing meals, shopping, managing finances, etc.?: No Are you currently unemployed and looking for a job?: No Are you interested in more education?: No Currently or been in a relationship where the following occur: no concerns reported THRIVE Score: 0 AUDIT C Alcohol Use Questionnaire (AUDIT-C) 1. How often do you have a drink containing alcohol?: Monthly or less 2. How many drinks containing alcohol do you have on a typical day when you are drinking?: 1 or 2 3. How often do you have six or more drinks on one occasion?: Never Total Score: 1 Score Reviewed/Action Taken: No ROBBIE-7 AMB Questionnaire ROBBIE-7 Date ROBBIE - 7 assessed: 01/07/24 Feeling nervous, anxious, or on edge: 1 = Several days Not being able to stop or control worryin = Several days Worrying too much about different things: 1 = Several days Trouble relaxin = Several days Being so restless that it is hard to sit still: 1 = Several days Becoming easily annoyed or irritable: 1 = Several days Feeling afraid as if something awful might happen: 0 = Not at all Total ROBBIE-7 score (0-4 normal; 5-9 mild; 10-14 moderate; 15-21 severe): 6 Source: Developed by Drs. Ivan Zapata, Elvira Hernandez, Dimitri Alfred and colleagues, with an educational valdo from [employer]. ROBBIE-7 Assessment Billing ROBBIE-7 Assessment Tool: ROBBIE-7 Assessment 33667 Review of Systems Const All systems reviewed & are unremarkable except as noted in HPI and below Card Denies chest pain at rest, Denies chest pain with activity, Denies edema, Denies irregular heart rhythm, Denies claudication, Denies dyspnea, Denies dyspnea on exertion, Denies orthopnea, Denies paroxysmal nocturnal dyspnea and Denies slow heart rate Resp Denies cough, Denies dyspnea and Denies dyspnea on exertion GI Denies abdominal pain, Denies change in bowel habits, Denies excessive flatus, Denies nausea and Denies vomiting Denies urinary incontinence, Denies urinary hesitancy and Denies urinary urgency Neuro Denies lack of coordination Physical exam (Primary Care) Vital Signs: Last Vital Signs Pulse 72 01/07/24 08:46 BP 122/78 01/07/24 08:46 Pulse Ox 98 01/07/24 08:46 Oxygen Delivery Method Room Air 01/07/24 08:46 BMI result Body Mass Index 30.3 Tobacco/Smoking Status: Tobacco use Status Tobacco use date assessed 01/07/24 01/07/24 08:49 Patient Tobacco Use Status Never used Tobacco 01/07/24 08:47 e-Cigarette/Vaping Use Never Used 01/07/24 08:47 PHQ-9: PHQ-9 Score PHQ-9: Total score 8 01/07/24 09:15 Depression Screening Interpretation: Positive Depression Screening Follow-up: Existing condition, Community Mental Health Worker F/U and Follow-up Visit Requested Thrive Assessment: Date of Thrive Assessment Date Thrive assessed 01/07/24 01/07/24 08:49 Currently or been in a relationship where the following occur: no concerns reported Const Orientation/consciousness: patient oriented x3 HENMT Head: Yes normal to inspection, Yes normocephalic and Yes atraumatic Ears: external ears normal Eyes General: appearance normal, both eyes and all related structures Eyelids: Yes eyelids normal Conjunctivae: conjunctivae normal Neck Neck: Yes normal visual inspection and Yes supple Resp Effort & Inspection: normal respiratory effort Auscultation: clear to auscultation bilaterally Cardio Jugular venous distension: no JVD Rate: regular rate Rhythm: regular rhythm Heart sounds: S1 normal heart sound present and S2 normal heart sound present GI Inspection: Yes normal to inspection Palpation (GI): Soft to palpation and nontender Auscultation: normal bowel sounds Skin General skin exam: no rashes or lesions noted Neuro General: patient oriented x3 and no focal motor deficits Extrem General: Yes full ROM Psych Appearance: grossly normal Assessment and Plan Assessment & Plan (1) Physical exam: Code(s): Z00.00 - Encounter for general adult medical examination without abnormal findings Plan: Repeat in a year. (2) Mild recurrent major depression: Code(s): F33.0 - Major depressive disorder, recurrent, mild Plan: Follow-up with psychiatry. Orders: Orders XR sacrum coccyx min 2V Today M53.3 - Sacrococcygeal disorders, not elsewhere classified Thyroid Stimulating Hormone Today E05.00 - Thyrotoxicosis with diffuse goiter without thyrotoxic crisis or storm Referrals Endocrinology Referral E05.00 - Thyrotoxicosis with diffuse goiter without thyrotoxic crisis or storm Medications: Changed From meclizine 25 mg PO DAILY PRN motion sickness To meclizine 25 mg PO DAILY PRN 30 tabs 1RF motion sickness 30 days Coding Level of Care Code Est Pt Prev Care 40-64y(54722) Diagnoses Physical exam Z00.00 Mild recurrent major depression F33.0 Additional Codes ROBBIE-7 Assessment Billing - ROBBIE-7 Assessment Tool: ROBBIE-7 Assessment [id number] ([id number]) Time Spent (min) 33
== END 2024-01-07 09:22 | disposition home or self-care (01) ==
PROVIDERS: Visit Provider Internal Medicine
DX: Z00.00 Encounter for general adult medical examination without abnormal findings (principal); F33.0 Major depressive disorder, recurrent, mild
CPT/HCPCS: 99396

== ENCOUNTER 2024-01-09 10:26 | Outpatient (REF) | payer OTHER, SELFPAY ==
--- NOTE | ~2024-01-09 | XR_ITS ---
EXAMINATION: XR SACRUM AND COCCYX CLINICAL INFORMATION: Sacrococcygeal disorders not elsewhere classified. COMPARISON: Lumbar spine November 08, 2021. TECHNIQUE: 3 views of the sacrum and coccyx. FINDINGS: Degenerative changes in the imaged lower lumbar spine. Pubic symphysis is maintained. Mild degenerative changes on the limited views of the bilateral hips. Rounded pelvic calcifications are likely vascular. Bilateral sacroiliac joints are maintained. Limited visualization of the sacrum/coccyx due to overlying bowel and bony structures. XR/XR sacrum coccyx min 2V IMPRESSION: 1. Mild degenerative changes on the limited views of the bilateral hips. 2. Degenerative changes in the imaged lower lumbar spine. Limited visualization of the sacrum/coccyx due to overlying bowel and bony structures. Additional imaging with CT scan or MRI should be considered for if there is clinical concern for fracture or other underlying pathology.
[2024-01-09 11:44] LABS: Alanine Aminotransferase 20 U/L (0-31); Albumin Level 4.5 g/dL (3.5-5.0); Alkaline Phosphatase 72 U/L (39-117); Anion Gap 15 (12-20); Aspartate Amino Transferase 22 U/L (5-31); Bilirubin Total 0.2 mg/dL (0.0-1.0); Blood Urea Nitrogen 11 mg/dL (9-16); Calcium 9.4 mg/dL (8.4-10.2); Carbon Dioxide 23 mmol/L (22-29); Chloride 108 mmol/L (96-108); Cholesterol 190 mg/dL (<200); Estimated Glomerular Filt Rate > 60; Glucose Fasting 88 mg/dL (60-99); HDL Cholesterol 33 mg/dL (>40); LDL Cholesterol Calculated 137 mg/dL (<100); Potassium 4.1 mmol/L (3.3-5.1); Sodium 142 mmol/L (135-145); Total Protein 7.7 g/dL (6.5-8.0); Triglycerides 102 mg/dL (<150)
[2024-01-09 12:00] LABS: Thyroid Stimulating Hormone 1.12 uIU/mL (0.32-4.0)
== END 2024-01-09 10:27 | disposition home or self-care (01) ==
LOC: HO.LAB 10:26
PROVIDERS: PCP Internal Medicine; Visit Provider Internal Medicine
DX: E66.9 Obesity, unspecified (principal); E05.00 Thyrotoxicosis with diffuse goiter without thyrotoxic crisis or storm; R07.2 Precordial pain; M53.3 Sacrococcygeal disorders, not elsewhere classified
CPT/HCPCS: 36415; 72220; 80053; 80061; 84443

== ENCOUNTER 2024-03-24 10:02 | Outpatient (AMB) | payer OTHER, SELFPAY ==
[2024-03-24 10:04] VITALS: BP 138/78; PULSE 59; BMI 29.7
--- NOTE | 2024-03-24 10:04 | MHC.OFFVIS ---
Vital Signs 03/24/24 10:04 Height 5 ft Weight 152 lb 1.903 oz BMI 29.7 BP 138/78 Blood Pressure Location Lt brachial Position Sitting Pulse 59 Intake Visit Reasons: 3 mnth follow up Intake Note: Edson presents in the office as a 3 month follow up. CC: she states that she is feeling okay and not having any concerns at this time. 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 Avoid dietary triggers and late night snacking. Smaller meals and more often. Staying upright for minimum 3 hours after meals discussed with her. Continue taking Linzess. Increase fluid intake and activity to promote better bowel motility. Follow-up in the office in 3 months, sooner on as needed basis. Patient is agreeable to this plan and verbalizes understanding of instructions. She was given the opportunity to ask questions and all questions answered. ? Thank you for allowing me to participate in her care Medications New esomeprazole magnesium (Nexium) 40 mg PO DAILY 30 caps 5RF K21.9 Refilled linaclotide (Linzess) 145 mcg PO DAILY 90 caps 3RF K59.04 TODAY'S VISIT Patient is here today for follow-up. Patient reports that she has been doing better when she started taking Nexium. She only takes sucralfate on as needed basis. Patient change her diet and eliminated different food. Patient is avoiding pasta, pizza, red sauce. Patient reports that she is moving her bowels better now that she is on Linzess. Patient takes it daily and she no longer experiences abdominal pain and bloating. Overall patient reports to be feeling well. Denies any GI concerning symptoms at this time. 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 Chronic idiopathic constipation Sessile serrated polyp of colon Sinusitis ROBBIE (generalized anxiety disorder) Mild recurrent major depression GERD (gastroesophageal reflux disease) Fibromyalgia Obesity, Class I, BMI 30-34.9 Obese Vertigo Tricuspid regurgitation Mitral valve regurgitation Vitamin D deficiency Graves' orbitopathy Uninodular goiter Asthma Graves disease Hyperthyroidism Surgical History History of esophagogastroduodenoscopy (EGD) Hx of colonoscopy History of endometrial ablation H/O ultrasound guided needle biopsy S/P fine needle aspiration Hx of hysterectomy Family History Father CVD (cardiovascular disease) Hypertension Mother CVD (cardiovascular disease) Hypertension Diabetes Son Mental health disorder Social History Household Members: Children Housing: Apartment Alcohol intake: current Alcohol intake frequency: holidays/special occasions only Alcohol type: wine and hard liquor Patient Tobacco Use Status: Never used Tobacco e-Cigarette/Vaping Use: Never Used Second Hand Smoke Exposure: No Advance Directives Date on File: 05/18/20 service: No Current occupational status: unemployed Cognitive needs: No Hearing needs: No Vision needs: Yes Review of Systems Const Denies weight gain and Denies weight loss ENT Reports no additional complaints, Denies dysphagia and Denies odynophagia Card Reports no additional complaints Resp Reports no additional complaints GI Denies abdominal pain, Denies belching, Denies melena, Denies bloating, Denies change in bowel habits, Denies dysphagia, Denies excessive flatus, Denies dyspepsia, Denies heartburn, Denies diarrhea, Denies loose stools, Denies nausea, Denies odynophagia and Denies vomiting Reports no additional complaints Musc Reports no additional complaints Neuro Reports no additional complaints Psych Reports no additional complaints Endo Reports no additional complaints Physical Exam Vital Signs: Last Vital Signs Pulse 59 03/24/24 10:04 BP 138/78 03/24/24 10:04 BMI result Body Mass Index 29.7 Const General: healthy appearing and no acute distress Nutritional Appearance: obese Orientation/consciousness: patient oriented x3 Resp Effort & Inspection: normal respiratory effort, able to speak in complete sentences, no tracheal deviation and symmetric chest movement Auscultation: clear to auscultation bilaterally Cardio Rate: regular rate Heart sounds: S1 normal heart sound present and S2 normal heart sound present GI Inspection: Yes normal to inspection, No distended and Yes obesity Palpation (GI): Soft to palpation, not firm, nontender and No hepatosplenomegaly present Auscultation: normal bowel sounds General: Yes no CVA tenderness Back/Spine/Pelvis Back: no CVA tenderness Skin General skin exam: elasticity normal, turgor normal and dry skin Neuro General: patient oriented x3 Psych Appearance: grossly normal Mental Status: mental status grossly normal Assessment & Plan Assessment & Plan (1) 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: Code(s): K22.70 - Marmolejo's esophagus without dysplasia Category: Medical (2) Chronic idiopathic constipation: Code(s): K59.04 - Chronic idiopathic constipation Category: Medical (3) Low vitamin D level: Code(s): R79.89 - Other specified abnormal findings of blood chemistry Category: Medical (4) IBS (irritable bowel syndrome): Code(s): K58.9 - Irritable bowel syndrome without diarrhea Category: Medical Qualifiers: Irritable bowel syndrome type: with both diarrhea and constipation Qualified Code(s): K58.2 - Mixed irritable bowel syndrome (5) GERD (gastroesophageal reflux disease): Code(s): K21.9 - Gastro-esophageal reflux disease without esophagitis Category: Medical Qualifiers: Esophagitis presence: esophagitis presence not specified Qualified Code(s): K21.9 - Gastro-esophageal reflux disease without esophagitis (6) Postprandial abdominal bloating: Code(s): R14.0 - Abdominal distension (gaseous) (7) Postprandial epigastric pain: Code(s): R10.13 - Epigastric pain Plan Continue Nexium daily. Continue avoiding dietary triggers. Patient will need to return for upper endoscopy in October of 2025. Continue taking Linzess. Increase fluid intake and activity to promote better bowel motility. Follow-up in 6 months, sooner on as needed basis. Patient is agreeable to this plan and verbalizes understanding of instructions was given the opportunity to ask questions and all questions answered. 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
== END 2024-03-24 10:24 | disposition home or self-care (01) ==
PROVIDERS: PCP Internal Medicine; Visit Provider Nurse Practitioner Family
DX: K22.70 Barrett's esophagus without dysplasia (principal); K59.04 Chronic idiopathic constipation; R79.89 Other specified abnormal findings of blood chemistry; K58.2 Mixed irritable bowel syndrome; K21.9 Gastro-esophageal reflux disease without esophagitis; R14.0 Abdominal distension (gaseous); R10.13 Epigastric pain
CPT/HCPCS: 99213

== ENCOUNTER → 2024-03-24 10:02 | Outpatient (BNVA) | payer OTHER, SELFPAY | PROVIDERS: PCP Internal Medicine; Visit Provider Nurse Practitioner Family | DX: K22.70 Barrett's esophagus without dysplasia (principal); K59.04 Chronic idiopathic constipation; K21.9 Gastro-esophageal reflux disease without esophagitis; K58.2 Mixed irritable bowel syndrome; R79.89 Other specified abnormal findings of blood chemistry; R14.0 Abdominal distension (gaseous); R10.13 Epigastric pain | CPT/HCPCS: 99212 ==

== ENCOUNTER 2024-04-03 13:47 | Outpatient (AMB) | payer OTHER, SELFPAY ==
[2024-04-03 14:00] VITALS: BP 124/80; PULSE 57; BMI 29.9
--- NOTE | 2024-04-03 14:00 | A.OFFVIS_ITS ---
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 Allergies No Known Allergies Allergy (Verified 04/03/24 14:02) Medication List - Last Reconciled 04/03/24 by Lesley Bran, ORTHOPEDIC CAST SPECIALIST-C albuterol sulfate 90 mcg/actuation (ProAir RespiClick) 2 inhalations inhalation Q6H PRN 30 days albuterol sulfate 2.5 mg (3 mL) inhalation Q6H PRN 30 days blood pressure monitor (Blood Pressure Kit) As directed buspirone 5 mg PO BID cetirizine (Zyrtec) 10 mg PO DAILY PRN cholecalciferol (vitamin D3) 125 mcg PO DAILY 30 days esomeprazole magnesium (Nexium) 40 mg PO DAILY fluticasone propionate 50 mcg/actuation (Flonase Allergy Relief) 2 sprays intranasal DAILY ketotifen fumarate 0.025%(0.035%) (Eye Itch Relief) drps ophthalmic (eye) linaclotide (Linzess) 145 mcg PO DAILY meclizine 25 mg PO DAILY PRN 30 days methimazole 5 mg PO DAILY 90 days mometasone-formoterol 200-5 mcg/actuation 1 puff PO BID sucralfate 10 mL PO BEDTIME Ventolin HFA 90 mcg/actuation (albuterol sulfate) 2 puffs inhalation Q6H PRN 30 days NS zolpidem mg PO HPI HPI 6 mnth f/up: Details: Edson is a 53-year-old female with past medical history of obesity, fibromyalgia, GERD, anxiety, who has been evaluated for chest discomfort and heart palpitations without concerning findings. Today she states she reports that she still gets random discomfort in her chest. It is unchanged from what was previously reported. She will feel her heart beating fast at times. No sustained rapid rates occurring at rest. No presyncope, syncope, falls. No PND, orthopnea or edema. Mild shortness of breath with stair climbing and walking distances. She does not engage in routine exercise. Takes meds as directed. 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 Chronic idiopathic constipation Sessile serrated polyp of colon Sinusitis ROBBIE (generalized anxiety disorder) Mild recurrent major depression GERD (gastroesophageal reflux disease) Fibromyalgia Obesity, Class I, BMI 30-34.9 Obese Vertigo Tricuspid regurgitation Mitral valve regurgitation Vitamin D deficiency Graves' orbitopathy Uninodular goiter Asthma Graves disease Hyperthyroidism Surgical History History of esophagogastroduodenoscopy (EGD) Hx of colonoscopy History of endometrial ablation H/O ultrasound guided needle biopsy S/P fine needle aspiration Hx of hysterectomy Family History Father CVD (cardiovascular disease) Hypertension Mother CVD (cardiovascular disease) Hypertension Diabetes Son Mental health disorder Social History Household Members: Children Housing: Apartment Alcohol intake: current Alcohol intake frequency: holidays/special occasions only Alcohol type: wine and hard liquor Patient Tobacco Use Status: Never used Tobacco e-Cigarette/Vaping Use: Never Used Second Hand Smoke Exposure: No Advance Directives Date on File: 05/18/20 service: No Current occupational status: unemployed Cognitive needs: No Hearing needs: No Vision needs: Yes Review of Systems Const All systems reviewed & are unremarkable except as noted in HPI and below ENT Denies dizziness Card Denies chest pain, Denies chest pain at rest, Denies chest pain with activity, Reports rapid heart rate, Denies pedal edema, Denies edema, Denies leg edema, Denies lightheadedness, Denies palpitations, Denies dyspnea, Denies dyspnea on exertion and Denies orthopnea Resp Denies cough, Denies dyspnea and Denies dyspnea on exertion GI Denies hematochezia and Denies change in stool character Musc Denies abnormal gait, Denies limited range of motion, Denies muscle cramps, Denies muscle weakness, Denies numbness, Denies radiating pain into limb, Denies stiffness and Denies tingling Neuro Denies abnormal gait, Denies dizziness, Denies numbness and Denies tingling Endo Denies palpitations Physical Exam Vital Signs: Last Vital Signs Pulse 57 04/03/24 14:00 BP 124/80 04/03/24 14:00 BMI result Body Mass Index 29.9 Const General: cooperative, healthy appearing, comfortable and no acute distress Orientation/consciousness: patient oriented x3 Neck Neck: Yes normal visual inspection and Yes no JVD Resp Effort & Inspection: normal respiratory effort Auscultation: clear to auscultation bilaterally, no rales, no rhonchi and no wheezes Cardio Jugular venous distension: no JVD Rate: regular rate Rhythm: regular rhythm Heart sounds: S1 normal heart sound present, S2 normal heart sound present, no murmurs and no rubs Neuro General: patient oriented x3 Extrem General: Yes normal to inspection, No no pedal edema and No calf tenderness Psych Appearance: grossly normal Mental Status: mental status grossly normal Speech and movement: Normal speech and movement present Assessment & Plan Assessment & Plan (1) Precordial chest pain: Code(s): R07.2 - Precordial pain Category: Medical Plan: Reports of atypical sounding chest discomfort. Prior EKG showed normal sinus rhythm, no acute ST or T-wave abnormalities, due to R-wave progression can not exclude anterior infarct however could be related to lead placement, rate 72. Cardiac risk factors of mi obesity and age. She did have a stress test 04/2021 which did elicit atypical chest discomfort, no EKG changes. Last echocardiogram done 06/05/2022 showing EF 60%, no valve abnormalities, no regional wall motion abnormalities. Due to ongoing reports of discomfort she had a nuclear stress test on 10/07/2023 which showed normal myocardial perfusion imaging. Today she reports no significant change in her symptom. Informed her this is noncardiac pain. Continue with risk factor modification. Emergency care if ever needed for symptoms. Cardiology follow-up as needed. (2) Palpitation: Code(s): R00.2 - Palpitations Category: Medical Plan: Prior reports of fluttering in her chest which feels like bubbles. She did not feel that this is GI related. Her EKGs have shown sinus rhythm. A Holter monitor was done on 10/04/2023 for 3 days showing sinus rhythm with average heart rate 80, her symptoms correlated with sinus rhythm. Today she states she feels her heart going fast at times when she is doing physical activity. Test results reviewed with her and offered reassurance. Continue physical activity as tolerated. Plan Time spent on chart review, documentation, interview and assessment Coding Level of Care Code Est Pt Level 3 (54831) Diagnoses Precordial chest pain R07.2 Palpitation R00.2 Time Spent (min) 24
== END 2024-04-03 14:33 | disposition home or self-care (01) ==
PROVIDERS: PCP Internal Medicine; Visit Provider Nurse Practitioner Family
DX: R07.2 Precordial pain (principal); R00.2 Palpitations
CPT/HCPCS: 99213

== ENCOUNTER → 2024-04-03 13:47 | Outpatient (BNVA) | payer OTHER, SELFPAY | PROVIDERS: PCP Internal Medicine; Visit Provider Nurse Practitioner Family | DX: R07.2 Precordial pain (principal); R00.2 Palpitations | CPT/HCPCS: 99212 ==

== ENCOUNTER 2024-05-27 09:55 | Emergency (ER) | payer OTHER, SELFPAY ==
--- NOTE | ~2024-05-27 | XR_ITS ---
EXAMINATION: XR CHEST CLINICAL INFORMATION: Pain COMPARISON: June 06, 2016 TECHNIQUE: Frontal view of the chest was obtained. FINDINGS: No significant abnormality is noted involving the heart, lungs, mediastinum, bony thorax or soft tissues. XR/XR chest 1V IMPRESSION: No active cardiopulmonary disease and no interval change 70 Electronically signed by: Marie Aguilar MD 05/27/2024 02:36 PM EDT RP
--- NOTE | 2024-05-27 09:58 | ECG_ITS ---
Test Reason : CP Blood Pressure : / mmHG Vent. Rate : 074 BPM Atrial Rate : 074 BPM P-R Int : 160 ms QRS Dur : 084 ms QT Int : 386 ms P-R-T Axes : 057 -30 003 degrees QTc Int : 428 ms Normal sinus rhythm Left axis deviation Minimal voltage criteria for LVH, may be normal variant ( R in aVL ) Cannot rule out Anterior infarct , age undetermined Abnormal ECG When compared to the previous EKG of No significant changes seen Referred By: Generic ED Physician Electronically Signed By:Denzel Llamas
[2024-05-27 10:15] VITALS: BP 158/89; PULSE 72; RESP 16; TEMP 36.3; O2SAT 99; BMI 30.4
[2024-05-27 10:50] LABS: MANUAL DIFF FLAG NO
[2024-05-27 10:52] LABS: Basophils Percent Auto 0.3 % (0-2); Eosinophils Absolute Auto 0.1 X10*3/uL (0.0-0.4); Eosinophils Percent Auto 0.5 % (0-4); Hematocrit 38.7 % (37.0-47.0); Hemoglobin 13.2 g/dl (12.0-16.0); Imm Gran Abs Auto 0.05 X10*3/uL (0.00-0.03); Imm Gran Pct Auto 0.5 % (0.0-0.4); Lymphocytes Absolute Auto 3.1 X10*3/uL (1.2-4.9); Lymphocytes Percent Auto 30.5 % (20-40); Mean Corpuscular HGB Conc 34.1 g/dl (31.0-35.0); Mean Corpuscular Hemoglobin 29.9 pg (27.0-33.0); Mean Corpuscular Volume 87.8 fL (80.0-98.0); Mean Platelet Volume 8.7 fL (9.4-12.3); Monocytes Absolute Auto 0.8 X10*3/uL (0.1-1.2); Neutrophils Percent Auto 60.2 % (45-73); Platelet Count 275 X10*3/uL (160-400); Red Blood Count 4.41 X10*6/uL (4.20-5.50); Red Cell Distribution Width 12.1 % (11.0-16.0)
[2024-05-27 11:08] LABS: Anion Gap 12 (12-20); Blood Urea Nitrogen 9 mg/dL (9-16); Calcium 10.3 mg/dL (8.4-10.2); Carbon Dioxide 29 mmol/L (22-29); Chloride 105 mmol/L (96-108); Creatinine Clr Calc Pharmacy 91.2; Estimated Glomerular Filt Rate > 60; Glucose Random 100 mg/dL (60-115); Potassium 3.8 mmol/L (3.3-5.1); Sodium 142 mmol/L (135-145)
[2024-05-27 11:24] LABS: Troponin-I High Sensitivity < 2.7 ng/L (<3.5-17.0)
--- NOTE | 2024-05-27 11:48 | ED.GENADULT ---
HPI - General Adult General Chief complaint: General Medical Stated complaint: Chest pain, headache Time Seen by Provider: 05/27/24 11:12 Source: patient and old records reviewed Mode of arrival: ambulatory Limitations: no limitations History of Present Illness ED Provider: SYBIL MITCHELL narrative: 53 yo female with PMH of asthma, HTN, barretts, anxiety, depression, had normal exercise stress and nuclear images in October 2023 here with c/o 4 days ago started with L sided and frontal headache that then proceeded to spread with pain to L side of body. She has central chest pain as well that comes and goes. She has nausea. Her arm and leg hurt as well. She denies overuse or trauma. She has no numbness or weakness. She denies fevers, rash, insect bites. complaint: L body pain Onset (ago): day(s) (4) Location: head, chest, left, upper extremity and lower extremity Radiation: non-radiation Severity: moderate Quality: aching Pain Consistency: constant Relieving factors: none Exacerbating factors: none Associated symptoms: other (itchy throat) Treatments prior to arrival: none Related Data Home Medications ?Medication ?Instructions ?Recorded ?Confirmed mometasone-formoterol HFA 200 1 puff PO BID 09/13/20 04/03/24 mcg-5 mcg/actuation aerosol inhaler sucralfate 100 mg/mL oral 10 ml PO BEDTIME 10/11/23 04/03/24 suspension buspirone 5 mg tablet 5 mg PO BID 12/23/23 04/03/24 ketotifen fumarate 0.025 % (0.035 drp ophthalmic (eye) 12/23/23 04/03/24 %) eye drops (Eye Itch Relief) zolpidem 10 mg tablet mg PO 12/23/23 04/03/24 Previous Rx's ?Medication ?Instructions ?Recorded blood pressure monitor (Blood #1 ea 01/18/23 Pressure Kit) albuterol sulfate 2.5 mg/3 mL 2.5 mg (3 mL) inhalation Q6H PRN 02/12/23 (0.083 %) solution for nebulization bronchospasm 30 days #360 mL albuterol sulfate 90 mcg/actuation 2 inh inhalation Q6H PRN shortness 02/12/23 breath activated powder inhaler of breath or wheezing 30 days #1 ea (ProAir RespiClick) cetirizine 10 mg tablet (Zyrtec) 10 mg PO DAILY PRN allergy 02/12/23 symptoms #20 tabs cholecalciferol (vitamin D3) 125 125 mcg PO DAILY 30 days #30 caps 03/04/23 mcg (5,000 unit) capsule fluticasone propionate 50 2 spray intranasal DAILY #16 grams 03/13/23 mcg/actuation nasal spray,suspension (Flonase Allergy Relief) meclizine 25 mg tablet 25 mg PO DAILY PRN motion sickness 01/07/24 30 days #30 tabs methimazole 5 mg tablet 5 mg PO DAILY 90 days #90 tabs 02/22/24 esomeprazole magnesium 40 mg 40 mg PO DAILY #90 caps 03/24/24 capsule,delayed release (Nexium) linaclotide 145 mcg capsule 145 mcg PO DAILY #90 caps 03/24/24 (Linzess) Ventolin HFA 90 mcg/actuation 2 puff inhalation Q6H PRN 05/05/24 aerosol inhaler (albuterol sulfate) shortness of breath or wheezing 30 days #8 grams cyclobenzaprine 10 mg tablet 10 mg PO TID PRN muscle spasm #20 05/27/24 tabs Allergies Allergy/AdvReac Type Severity Reaction Status Date / Time No Known Allergies Allergy Verified 05/27/24 10:17 Review of Systems Review of Systems: Constitutional : No Fever, No Chills, No Fatigue ENT/Mouth : No sore throat Eyes: No Eye Pain, No Swelling, No Redness Cardiovascular : No Chest Pain, No SOB, No Dyspnea on Exertion Respiratory : No Cough, No Sputum Gastrointestinal : No Nausea, No Vomiting, No Diarrhea, No abdominal Pain Genitourinary : No Dysuria, No Urinary Frequency, No Hematuria, Musculoskeletal : No joint pain, pos Myalgias, No Joint Swelling Skin : No Skin Lesions, No rash Neuro : No Weakness, No Numbness, No Dizziness, pos Headache Psych : No Anxiety/Panic, No Depression All other systems reviewed and are negative PMFSH Past Medical History Attestation statement: The following information was validated with the patient. 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 Chronic idiopathic constipation Sessile serrated polyp of colon Sinusitis ROBBIE (generalized anxiety disorder) Mild recurrent major depression GERD (gastroesophageal reflux disease) Fibromyalgia Obesity, Class I, BMI 30-34.9 Obese Vertigo Tricuspid regurgitation Mitral valve regurgitation Vitamin D deficiency Graves' orbitopathy Uninodular goiter Asthma Graves disease Hyperthyroidism Surgical History History of esophagogastroduodenoscopy (EGD) Hx of colonoscopy History of endometrial ablation H/O ultrasound guided needle biopsy S/P fine needle aspiration Hx of hysterectomy Family History Family History Father CVD (cardiovascular disease) Hypertension Mother CVD (cardiovascular disease) Hypertension Diabetes Son Mental health disorder Social History Social History Household Members: Children Housing: Apartment Alcohol intake: never Patient Tobacco Use Status: Never used Tobacco Smoked in Last 30 Days: No e-Cigarette/Vaping Use: Never Used Second Hand Smoke Exposure: No Advance Directives: No Advance Directives Information Provided: Yes Advance Directives Date on File: 05/18/20 service: No Current occupational status: unemployed Cognitive needs: No Hearing needs: No Vision needs: Yes Physical Exam ED Vital Signs: Vital Signs - 24 hr 05/27/24 10:15 Temperature 97.3 F Pulse Rate 72 Respiratory Rate 16 Blood Pressure 158/89 H Pulse Oximetry 99 Oxygen Delivery Method Room Air BMI result Body Mass Index 30.4 Appearance: Alert. Oriented X3. No acute distress. Eyes: Pupils equal, round and reactive to light. ENT: Pharynx normal. Neck: Normal inspection. Neck supple. CVS: Normal heart rate and rhythm. Pulses normal. Respiratory: No respiratory distress. Breath sounds normal. Abdomen: Soft and nontender. Skin: Skin warm and dry. Normal skin color. Normal skin turgor. Extremities: No lower extremity edema. normal ROM no swelling Neuro: Oriented X 3. No motor deficit. No sensory deficit. Medications Administered Discontinued Medications Generic Name Dose Route Start Last Admin Trade Name Freq PRN Reason Stop Dose Admin Acetaminophen 975 mg 05/27/24 11:48 05/27/24 11:58 Acetaminophen 325 Mg Tablet PO 05/27/24 11:49 975 mg ONCE ONE Administration Cyclobenzaprine HCl 10 mg 05/27/24 11:48 05/27/24 11:58 Cyclobenzaprine Hcl 10 Mg Tablet PO 05/27/24 11:49 10 mg ONCE ONE Administration Medical Decision Making Medical Decision Making [facility] Narrative: 53 yo female with PMH of asthma, HTN, barretts, anxiety, depression here with atypical L sided body pain but she is NV intact with bounding distal pulses and she has no deficits on that side. She has negative spurling maneuver, pain is not reproduceable at this time I am going to obtain basic labs, CPK, viral panel, strep swabs, CXR, ddimer. Could be MSK pain, doubt ACS given recent negative stress test and symptoms are atypical. 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 Differential Diagnosis Differential Diagnoses: The differential diagnosis associated with the presentation includes viral syndrome, lyte abnormality, MSK pain Admission/Observation Consideration of admission/observation: Escalation of care including admission/observation considered work up negative stable for DC Lab Data [facility] Lab Attestation statement: I reviewed the patient's lab results. 05/27/24 10:44 05/27/24 10:45 Labs: Lab Results 05/27/24 05/27/24 05/27/24 Range/Units 10:44 10:45 11:38 WBC 10.0 (4.8-10.8) X10*3/uL RBC 4.41 (4.20-5.50) X10*6/uL Hgb 13.2 (12.0-16.0) g/dl Hct 38.7 (37.0-47.0) % MCV 87.8 (80.0-98.0) fL MCH 29.9 (27.0-33.0) pg MCHC 34.1 (31.0-35.0) g/dl RDW 12.1 (11.0-16.0) % Plt Count 275 (160-400) X10*3/uL MPV 8.7 L (9.4-12.3) fL Immature Gran % (Auto) 0.5 H (0.0-0.4) % Neut % (Auto) 60.2 (45-73) % Lymph % (Auto) 30.5 (20-40) % Bracken % (Auto) 8.0 (2-11) % Eos % (Auto) 0.5 (0-4) % Baso % (Auto) 0.3 (0-2) % Lymph # (Auto) 3.1 (1.2-4.9) X10*3/uL [place]acken # (Auto) 0.8 (0.1-1.2) X10*3/uL Eos # (Auto) 0.1 (0.0-0.4) X10*3/uL Baso # (Auto) 0.0 (0.0-0.2) X10*3/uL Abs Immat Gran (auto) 0.05 H (0.00-0.03) X10*3/uL Absolute Neuts (auto) 6.0 (2.0-8.3) x10*3/uL Absolute Nucleated RBC 0.000 (0.0-0.012) X10*3/uL Nucleated RBC % (auto) 0.0 (0.0-0.2) /100WBC D-Dimer High Sensitivty NG/ML Sodium 142 (135-145) mmol/L Potassium 3.8 (3.3-5.1) mmol/L Chloride 105 (96-108) mmol/L Carbon Dioxide 29 (22-29) mmol/L Anion Gap 12 (12-20) BUN 9 (9-16) mg/dL Creatinine 0.64 (0.5-1.4) mg/dL Estim Creat Clear Calc 91.2 Estimated GFR > 60 Random Glucose 100 (60-115) mg/dL Calcium 10.3 H D (8.4-10.2) mg/dL Magnesium 2.2 (1.6-2.6) mg/dL Total Creatine Kinase 151 H (26-140) U/L Troponin I High Sens < 2.7 (<3.5-17.0) ng/L Influenza Type A (PCR) NEGATIVE (Negative) Influenza Type B (PCR) NEGATIVE (Negative) RSV RNA Qual (PCR) NEGATIVE (Negative) SARS-CoV-2 RNA (RT-PCR) NEGATIVE (Negative) S. pyogenes GrpA KAZ Negative (Negative) 05/27/24 Range/Units 12:00 WBC (4.8-10.8) X10*3/uL RBC (4.20-5.50) X10*6/uL Hgb (12.0-16.0) g/dl Hct (37.0-47.0) % MCV (80.0-98.0) fL MCH (27.0-33.0) pg MCHC (31.0-35.0) g/dl RDW (11.0-16.0) % Plt Count (160-400) X10*3/uL MPV (9.4-12.3) fL Immature Gran % (Auto) (0.0-0.4) % Neut % (Auto) (45-73) % Lymph % (Auto) (20-40) % Bracken % (Auto) (2-11) % Eos % (Auto) (0-4) % Baso % (Auto) (0-2) % Lymph # (Auto) (1.2-4.9) X10*3/uL Bracken # (Auto) (0.1-1.2) X10*3/uL Eos # (Auto) (0.0-0.4) X10*3/uL Baso # (Auto) (0.0-0.2) X10*3/uL Abs Immat Gran (auto) (0.00-0.03) X10*3/uL Absolute Neuts (auto) (2.0-8.3) x10*3/uL Absolute Nucleated RBC (0.0-0.012) X10*3/uL Nucleated RBC % (auto) (0.0-0.2) /100WBC D-Dimer High Sensitivty < 150 NG/ML Sodium (135-145) mmol/L Potassium (3.3-5.1) mmol/L Chloride (96-108) mmol/L Carbon Dioxide (22-29) mmol/L Anion Gap (12-20) BUN (9-16) mg/dL Creatinine (0.5-1.4) mg/dL Estim Creat Clear Calc Estimated GFR Random Glucose (60-115) mg/dL Calcium (8.4-10.2) mg/dL Magnesium (1.6-2.6) mg/dL Total Creatine Kinase (26-140) U/L Troponin I High Sens (<3.5-17.0) ng/L Influenza Type A (PCR) (Negative) Influenza Type B (PCR) (Negative) RSV RNA Qual (PCR) (Negative) SARS-CoV-2 RNA (RT-PCR) (Negative) S. pyogenes GrpA KAZ (Negative) Independent Interpretation I performed an independent interpretation of an: EKG and Plain X-Ray (normal ) Interpretation: Rate: 74 Rhythm: NSR [place]: left Normal P waves. Normal BRYON. Normal QRS complex. ST T wave : inverted t waves V1, V3, III, avF qTC: 428 prior studies: no change from EKG October 2023 The study has been interpreted contemporaneously by me. . Radiology Impression Discussion of test interpretation with radiology: I have reviewed the radiologist's reading. External Record Review External record reviewed: Outpatient record Prescription Management I considered prescription management with: Other Discharge Plan Discharge Clinical Impression: Myalgia, Atypical chest pain Headache Qualifiers: Headache type: unspecified Headache chronicity pattern: acute headache Intractability: not intractable Qualified Code(s): R51.9 - Headache, unspecified Patient Disposition: Home, Self-Care Instructions: Chest Pain (ED), Acute Headache (ED), Musculoskeletal Pain (ED) Additional Instructions: labs reassuring negative for strep, covid, rsv, flu normal cxr please follow up with your doctor return for any worsening symptoms or concerns. Prescriptions: New cyclobenzaprine 10 mg tablet 10 mg PO TID PRN (Reason: muscle spasm) Qty: 20 0RF No Action ProAir RespiClick 90 mcg/actuation aerosol powdr breath activated 2 inh inhalation Q6H PRN (Reason: shortness of breath or wheezing) 30 Days Qty: 1 6RF albuterol sulfate 2.5 mg /3 mL (0.083 %) solution for nebulization 2.5 mg inhalation Q6H PRN (Reason: bronchospasm) 30 Days Qty: 360 1RF cetirizine [Zyrtec] 10 mg tablet 10 mg PO DAILY PRN (Reason: allergy symptoms) Qty: 20 0RF cholecalciferol (vitamin D3) 125 mcg (5,000 unit) capsule 125 mcg PO DAILY 30 Days Qty: 30 6RF fluticasone propionate [Flonase Allergy Relief] 50 mcg/actuation spray,suspension 2 spray intranasal DAILY Qty: 16 0RF Rx Instructions: administer into each nostril methimazole 5 mg tablet 5 mg PO DAILY 90 Days Qty: 90 3RF albuterol sulfate [Ventolin HFA] 90 mcg/actuation HFA aerosol inhaler 2 puff inhalation Q6H PRN (Reason: shortness of breath or wheezing) 30 Days Qty: 8 0RF mometasone-formoterol 200-5 mcg/actuation HFA aerosol inhaler 1 puff PO BID meclizine 25 mg tablet 25 mg PO DAILY PRN (Reason: motion sickness) 30 Days Qty: 30 1RF sucralfate 100 mg/mL suspension 10 ml PO BEDTIME esomeprazole magnesium [Nexium] 40 mg capsule,delayed release(DR/EC) 40 mg PO DAILY Qty: 90 2RF Linzess 145 mcg capsule 145 mcg PO DAILY Qty: 90 3RF (DME) blood pressure monitor [Blood Pressure Kit] Kit See Rx Instructions .Route Qty: 1 0RF Rx Instructions: As directed zolpidem 10 mg tablet PO buspirone 5 mg tablet 5 mg PO BID ketotifen fumarate [Eye Itch Relief] 0.025 % (0.035 %) drops ophthalmic (eye) Stand Alone Forms: Work/School Release Print Language: Chinese
[2024-05-27 11:49] LABS: Magnesium 2.2 mg/dL (1.6-2.6)
[2024-05-27 11:58] LABS: IDNOW Serial# 08D9AD1C; Strep A Nucleic Acid Negative (Negative)
[2024-05-27] MEDS: Acetaminophen 325 MG TABLET 975 MG PO (11:58)
[2024-05-27] MEDS: Cyclobenzaprine HCl 10 MG TABLET PO (11:58)
[2024-05-27 12:26] LABS: Influenza A PCR NEGATIVE (Negative); Influenza B PCR NEGATIVE (Negative); Resp Syncy Virus RNA Qual PCR NEGATIVE (Negative); SARS COV2 PCR INHOUSE NEGATIVE (Negative)
[2024-05-27 12:42] LABS: D Dimer High Sensitivity < 150 NG/ML
[2024-05-27 13:10] VITALS: BP 148/87; PULSE 57; RESP 14; TEMP 36.3; O2SAT 100
[2024-05-27 13:22] VITALS: BP 148/87; PULSE 57; RESP 18; TEMP 36.3; O2SAT 100
== END 2024-05-27 13:23 | disposition home or self-care (01) ==
PROVIDERS: Emergency Provider Emergency Medicine; PCP Internal Medicine
DX: M79.10 Myalgia, unspecified site (principal); R07.89 Other chest pain; R51.9 Headache, unspecified; Z03.818 Encounter for observation for suspected exposure to other biological agents ruled out; J45.909 Unspecified asthma, uncomplicated; Z79.899 Other long term (current) drug therapy
CPT/HCPCS: 0241U; 36415; 71045; 80048; 82550; 83735; 84484; 85025; 85379; 87651; 93005; 99284

== ENCOUNTER → 2024-05-27 09:58 | Outpatient (BNV) | payer OTHER, SELFPAY | PROVIDERS: Emergency Provider Emergency Medicine; PCP Internal Medicine; Visit Provider Internal Medicine Cardiovascular Disease | DX: R07.9 Chest pain, unspecified (principal); R94.31 Abnormal electrocardiogram [ECG] [EKG] | CPT/HCPCS: 93010 ==

== ENCOUNTER 2024-05-28 13:36 | Outpatient (AMB) | payer OTHER, SELFPAY ==
--- NOTE | 2024-05-28 13:39 | A.OFFVIS_ITS ---
Vital Signs 05/28/24 13:41 Height 5 ft Weight 154 lb 15.759 oz BMI 30.3 BP 132/74 Blood Pressure Location Rt brachial Position Sitting Pulse 94 Pulse Source Pulse Oximeter Intake Visit Reasons: Fibromyalgia/cm Intake Note: Patient presents today for follow up on fibromyalgia. She was last seen in the office on 10/24/23 by Zahra Haji. Insurance Compliance Analyst Required: No Accompanied by: Daughter Allergies No Known Allergies Allergy (Verified 05/28/24 13:41) Medication List - Last Reconciled 05/28/24 by Nina Tolliver MD albuterol sulfate 90 mcg/actuation (ProAir RespiClick) 2 inhalations inhalation Q6H PRN 30 days albuterol sulfate 2.5 mg (3 mL) inhalation Q6H PRN 30 days blood pressure monitor (Blood Pressure Kit) As directed buspirone 5 mg PO BID cetirizine (Zyrtec) 10 mg PO DAILY PRN cholecalciferol (vitamin D3) 125 mcg PO DAILY 30 days cyclobenzaprine 10 mg PO TID PRN esomeprazole magnesium (Nexium) 40 mg PO DAILY fluticasone propionate 50 mcg/actuation (Flonase Allergy Relief) 2 sprays intranasal DAILY ketotifen fumarate 0.025%(0.035%) (Eye Itch Relief) drps ophthalmic (eye) linaclotide (Linzess) 145 mcg PO DAILY meclizine 25 mg PO DAILY PRN 30 days methimazole 5 mg PO DAILY 90 days mometasone-formoterol 200-5 mcg/actuation 1 puff PO BID sucralfate 10 mL PO BEDTIME Ventolin HFA 90 mcg/actuation (albuterol sulfate) 2 puffs inhalation Q6H PRN 30 days NS zolpidem mg PO HPI Comments Details: Patient is a 53-year-old female with recurrent major depression, asthma, Graves disease with hyperthyroidism on methimazole, and fibromyalgia who presents today for follow-up Interval History: Patient last seen 10/24/2023 with Zahra Haji. At that time she continued to have chronic neck pain and total body pain. She had previous imaging done of her C-spine including x-ray and MRI which was essentially normal. There was evidence of trochanteric bursitis at that appointment but she refused injections. Did not want to go to PT because he says it makes the pain worse. Today, Presents with the same complaints. Rheumatologic History: Was seen back in 2019 with multiple complaints. Ultimately diagnosed with fibromyalgia. It has been using tizanidine p.r.n. to help with muscle spasms. Previously on gabapentin 300 mg t.i.d. but unsure of the efficacy as she is not on it currently. 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 Chronic idiopathic constipation Sessile serrated polyp of colon Sinusitis ROBBIE (generalized anxiety disorder) Mild recurrent major depression GERD (gastroesophageal reflux disease) Fibromyalgia Obesity, Class I, BMI 30-34.9 Obese Vertigo Tricuspid regurgitation Mitral valve regurgitation Vitamin D deficiency Graves' orbitopathy Uninodular goiter Asthma Graves disease Hyperthyroidism Surgical History History of esophagogastroduodenoscopy (EGD) Hx of colonoscopy History of endometrial ablation H/O ultrasound guided needle biopsy S/P fine needle aspiration Hx of hysterectomy Family History Father CVD (cardiovascular disease) Hypertension Mother CVD (cardiovascular disease) Hypertension Diabetes Son Mental health disorder Social History Household Members: Children Housing: Apartment Alcohol intake: never Patient Tobacco Use Status: Never used Tobacco e-Cigarette/Vaping Use: Never Used Second Hand Smoke Exposure: No Advance Directives Date on File: 05/18/20 service: No Current occupational status: unemployed Cognitive needs: No Hearing needs: No Vision needs: Yes Review of Systems Const Details: Review of Systems Constitutional: Denies fever, chills, weight loss ENT: Denies vision changes, eye pain or eye redness, dental caries, dry mouth GI: Denies nausea, vomiting, diarrhea, abdominal pain, change in BM Pulm: Denies SOB, TEJADA, hemoptysis, wheezing Cards: Denies chest pain, palpitations Skin: Denies Raynaud's, rash, nail changes, photosensitivity, MANAGER WATER: Denies headaches, weakness, paresthesias, recurrent falls MSK: as per HPI All other systems reviewed and are unremarkable except noted above Physical Exam Vital Signs: Last Vital Signs Pulse 94 05/28/24 13:41 BP 132/74 05/28/24 13:41 BMI result Body Mass Index 30.3 Physical Examination Patient well appearing and in no apparent painful distress Constitutional Mucous membranes pink and moist patient alert and cooperative HEENT Conjunctiva and sclera clear. ?Pupils equal round and reactive to light. ?No lymphadenopathy. ?Normal dentition. Respiratory System Normal respiratory effort and able to speak in complete sentences. ?Clear to auscultation bilaterally. ?No crackles, rales, rhonchi, wheezes heard. Cardiac System Regular rate and rhythm. ?S1 and S2 heard no murmurs. ?Radial pulses intact bilaterally MSK No deformity, swelling, abnormalities noted to bilateral hands. ?No evidence of synovitis. ?Able to move all joints with full range of motion, without limitation. Hands:.??Normal pain-free range of motion without tenderness, swelling, increased warmth or erythema. 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 Heberden's nodes noted throughout the acquisition Wrists: Normal pain-free range of motion without tenderness, swelling, increased warmth or erythema. Elbows: Full range of motion without pain. No tenderness, weakness, swelling, increased warmth or erythema. Shoulders: Full range of motion without pain. No tenderness, weakness, swelling, increased warmth or erythema. Hips: Full range of motion without pain. Hip bursa:.??No tenderness. Knees:.???Normal pain-free range of motion without tenderness, swelling, increased warmth or erythema.?No effusion or crepitations Ankles:.??Normal pain-free range of motion without tenderness, swelling, increased warmth or erythema. Feet:.??Normal pain-free range of motion without tenderness, swelling, increased warmth or erythema. Tender points:??Tenderness to digital palpation at the occiput, trapezius, second rib, lateral epicondyle, knees, greater trochanter bilaterally, and left gluteal. Results Reviewed Results Reviewed: Laboratory Tests 10/23/22 05/27/24 05/27/24 12:49 10:44 10:45 WBC 10.0 RBC 4.41 Hgb 13.2 Hct 38.7 Plt Count 275 ESR 21 H Sodium 142 Potassium 3.8 Chloride 105 Carbon Dioxide 29 BUN 9 Creatinine 0.64 SI Joint XR 01/09/24 FINDINGS: Degenerative changes in the imaged lower lumbar spine. Pubic symphysis is maintained. Mild degenerative changes on the limited views of the bilateral hips. Rounded pelvic calcifications are likely vascular. Bilateral sacroiliac joints are maintained. Limited visualization of the sacrum/coccyx due to overlying bowel and bony structures Shoulder XR 12/21/22 FINDINGS: Small marginal osteophytes at the glenoid. No joint space narrowing. Minimal acromioclavicular osteoarthritis. Enthesopathic spurring is present at the greater tuberosity. No fracture or malalignment. Soft tissues are unremarkable Assessment & Plan Assessment & Plan (1) Fibromyalgia: Code(s): M79.7 - Fibromyalgia Category: Medical Plan: #Fibromyalgia Patient with fibromyalgia continued to complain of widespread pain. Had a very long discussion with her and her daughter about what fibromyalgia is and the appropriate treatment which is lifestyle changes. She is willing to commit to her lifestyle changes. Pamphlet printed and given. We will start on low-dose gabapentin for the next 4 months and see how she tolerates with a plan to escalate the gabapentin therapy. Plan I spent 35 minutes reviewing the record and labs, seeing the patient, discussing the treatment plan and documenting in the medical record ? Coding Level of Care Code Est Pt Level 4 (35109) Diagnoses Fibromyalgia M79.7
[2024-05-28 13:41] VITALS: BP 132/74; PULSE 94; BMI 30.3
== END 2024-05-28 14:26 | disposition home or self-care (01) ==
PROVIDERS: PCP Internal Medicine; Visit Provider Student in an Organized Health Care Education/Training Program
DX: M79.7 Fibromyalgia (principal)
CPT/HCPCS: 99214

== ENCOUNTER → 2024-05-28 13:36 | Outpatient (BNVA) | payer OTHER, SELFPAY | PROVIDERS: PCP Internal Medicine; Visit Provider Student in an Organized Health Care Education/Training Program | DX: M79.7 Fibromyalgia (principal); Z79.899 Other long term (current) drug therapy | CPT/HCPCS: 99212 ==

== ENCOUNTER 2024-06-05 09:52 | Outpatient (REF) | payer OTHER, SELFPAY ==
--- NOTE | ~2024-06-05 | MM_ITS ---
EXAMINATION: MM SCREENING DIGITAL BREAST TOMOSYNTHESIS, BILATERAL CLINICAL INFORMATION: Screening. Asymptomatic. COMPARISON: Mammography: Comparison is made with available priors TECHNIQUE: Digital breast mammography with tomosynthesis is performed in both the craniocaudal and mediolateral oblique views along with computer-aided detection (CAD). FINDINGS: There are scattered areas of fibroglandular density (ACR BI-RADS breast composition Category b). There are no significant masses, abnormal calcifications, or other abnormalities. MM/MM tomosynthesis screening BI IMPRESSION: No mammographic evidence of malignancy. ASSESSMENT: BI-RADS BI-RADS 1 - Negative RECOMMENDATION: Routine annual mammography screening. 1 year F/U This examination should not preclude the clinical evaluation of a suspicious palpable abnormality. This patient's information was entered into a reminder system with a target due date for their next mammogram. Electronically signed by: Esmer Hdz DO 06/12/2024 04:23 PM NAGI
== END 2024-06-05 09:53 | disposition home or self-care (01) ==
LOC: HO.MAMMO 09:52
PROVIDERS: PCP Internal Medicine; Visit Provider Internal Medicine
DX: Z12.31 Encounter for screening mammogram for malignant neoplasm of breast (principal)
CPT/HCPCS: 77063; 77067

== ENCOUNTER → 2024-06-05 10:00 | Outpatient (BNV) | payer OTHER, SELFPAY | PROVIDERS: PCP Internal Medicine; Visit Provider Internal Medicine | DX: Z12.31 Encounter for screening mammogram for malignant neoplasm of breast (principal) | CPT/HCPCS: 77063; 77067 ==

== ENCOUNTER 2024-07-08 09:18 | Outpatient (AMB) | payer OTHER, SELFPAY ==
[2024-07-08 09:23] VITALS: BP 132/72; BMI 30.3
--- NOTE | 2024-07-08 09:23 | MHC.PC.OV ---
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: No Accompanied by: Self / Same As Patient Allergies No Known Allergies Allergy (Verified 07/08/24 09:57) Medication List - Last Reconciled 07/08/24 by Melissa Coates MD albuterol sulfate 90 mcg/actuation (ProAir RespiClick) 2 inhalations inhalation Q6H PRN 30 days albuterol sulfate 2.5 mg (3 mL) inhalation Q6H PRN 30 days blood pressure monitor (Blood Pressure Kit) As directed buspirone 5 mg PO BID cetirizine (Zyrtec) 10 mg PO DAILY PRN cholecalciferol (vitamin D3) 125 mcg PO DAILY 30 days cyclobenzaprine 10 mg PO TID PRN esomeprazole magnesium (Nexium) 40 mg PO DAILY fluticasone propionate 50 mcg/actuation (Flonase Allergy Relief) 2 sprays intranasal DAILY ketotifen fumarate 0.025%(0.035%) (Eye Itch Relief) drps ophthalmic (eye) linaclotide (Linzess) 145 mcg PO DAILY meclizine 25 mg PO DAILY PRN 30 days methimazole 5 mg PO DAILY 90 days mometasone-formoterol 200-5 mcg/actuation 1 puff PO BID sucralfate 10 mL PO BEDTIME Ventolin HFA 90 mcg/actuation (albuterol sulfate) 2 puffs inhalation Q6H PRN 30 days NS zolpidem mg PO Tobacco use date assessed: 01/07/24 Dental Screening Dental Screen Date: 01/07/24 HPI HPI Comments History of Present Illness Details The patient is a 53-year-old female presenting with ongoing issues related to depression, anxiety, asthma, and gastrointestinal conditions. The patient has a history of asthma managed with albuterol inhaler usage, which has increased due to colder weather and activity-induced coughing. Previously, albuterol use was limited to once or twice a month. She is no longer under pulmonology care due to logistical changes. The patient is diagnosed with Marmolejo's Esophagus following an endoscopy this year, requiring follow-up soon. She also reports recent chest pain and shortness of breath after walking, though a stress test and electrocardiogram conducted last month showed no ischemia, suggesting a potential combination of costochondritis and esophageal issues. The chest pain is described as a strong, pulsatile sensation that improves with rubbing the affected area. The patient is under psychiatric care for major depressive disorder and anxiety, and she references slight improvement in depressive symptoms without pharmacological intervention. Anxiety is managed pharmacologically with Buspirone. Additionally, she was treated for hyperthyroidism but has had challenges accessing endocrinology care. Current medications also include Nexium for GERD, Flexeril for muscle spasms, and zolpidem for insomnia. 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 Chronic idiopathic constipation Sessile serrated polyp of colon Sinusitis ROBBIE (generalized anxiety disorder) Mild recurrent major depression GERD (gastroesophageal reflux disease) Fibromyalgia Obesity, Class I, BMI 30-34.9 Obese Vertigo Tricuspid regurgitation Mitral valve regurgitation Vitamin D deficiency Graves' orbitopathy Uninodular goiter Asthma Graves disease Hyperthyroidism Surgical History History of esophagogastroduodenoscopy (EGD) Hx of colonoscopy History of endometrial ablation H/O ultrasound guided needle biopsy S/P fine needle aspiration Hx of hysterectomy Family History Father CVD (cardiovascular disease) Hypertension Mother CVD (cardiovascular disease) Hypertension Diabetes Son Mental health disorder Social History Household Members: Children Housing: Apartment Alcohol intake: never Patient Tobacco Use Status: Never used Tobacco e-Cigarette/Vaping Use: Never Used Second Hand Smoke Exposure: No Advance Directives Date on File: 05/18/20 service: No Current occupational status: unemployed Cognitive needs: No Hearing needs: No Vision needs: Yes Questionnaire Thrive Questionnaire Date Thrive assessed: 01/07/24 ROBBIE-7 AMB Questionnaire ROBBIE-7 Date ROBBIE - 7 assessed: 01/07/24 Source: Developed by Drs. Ivan Zapata, Elvira Hernandez, Dimitri Alfred and colleagues, with an educational valdo from [employer] Review of Systems Const All systems reviewed & are unremarkable except as noted in HPI and below Card Denies chest pain at rest, Denies chest pain with activity, Denies edema, Denies irregular heart rhythm, Denies claudication, Denies dyspnea, Reports dyspnea on exertion, Denies orthopnea, Denies paroxysmal nocturnal dyspnea and Denies slow heart rate Resp Denies cough, Denies dyspnea and Reports dyspnea on exertion GI Denies abdominal pain, Denies change in bowel habits, Denies excessive flatus, Denies nausea and Denies vomiting Denies urinary incontinence, Denies urinary hesitancy and Denies urinary urgency Musc Denies abnormal gait, Denies atrophy, Denies deformity and Denies limited range of motion Skin/Breast Denies bleeding lesions, Denies changing lesions and Denies rash Neuro Denies abnormal gait and Denies lack of coordination Physical exam (Primary Care) Vital Signs: Last Vital Signs BP 132/72 07/08/24 09:23 BMI result Body Mass Index 30.3 BMI Assessment/Plan discussion: High BMI High, discussed plan: lifestyle, weight reduction, dietary and physical activity Tobacco/Smoking Status: Tobacco use Status Tobacco use date assessed 01/07/24 07/08/24 09:32 Patient Tobacco Use Status Never used Tobacco 07/08/24 09:32 e-Cigarette/Vaping Use Never Used 07/08/24 09:32 Thrive Assessment: Date of Thrive Assessment Date Thrive assessed 01/07/24 07/08/24 09:32 Resp Effort & Inspection: normal respiratory effort Auscultation: clear to auscultation bilaterally Cardio Jugular venous distension: no JVD Rate: regular rate Rhythm: regular rhythm Heart sounds: S1 normal heart sound present and S2 normal heart sound present Extrem General: Yes full ROM Psych Appearance: grossly normal Office Procedures Flu Questionnaire Does the patient have a severe egg allergy?: No Does the patient have severe life threatening allergies?: No Does the patient have a fever or illness today?: No Has the patient ever had Guillain-[place] Syndrome?: No Has the patient ever had any past reaction to a flu shot?: No Immunizations Fluarix Triv [id number] (PF) 45 mcg (15 mcg x 3)/0.5 mL IM syringe Performing Provider: Melissa Coates MD [facility] Administered by: LICHA Elise on 07/08/24 10:13 Dose Route Admin Location Dispensed Lot Number Expiration Date NDC Visual Specialist 0.5 mL IM Right Deltoid 0.5 mL [id number] 02/01/25 [id number] Figment VIS Given Date VIS Provided VIS Publication Date 07/08/24 Single Vaccine 21 Eligibility Eligibility Date Funding Source Not [facility] Eligible 07/08/24 Private Coding Level of Care Code Est Pt Level 4 (54384) Complex EM visit Add On G2211 Diagnoses 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 K22.70 Mild recurrent major depression F33.0 ROBBIE (generalized anxiety disorder) F41.1 Moderate persistent asthma without complication J45.40 Asthma severity: moderate Asthma persistence: persistent Asthma complication type: uncomplicated Hyperthyroidism E05.90 Time Spent (min) 22 Assessment & Plan Assessment & Plan (1) 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: Code(s): K22.70 - Marmolejo's esophagus without dysplasia Category: Medical (2) Mild recurrent major depression: Code(s): F33.0 - Major depressive disorder, recurrent, mild Category: Medical (3) ROBBIE (generalized anxiety disorder): Code(s): F41.1 - Generalized anxiety disorder Category: Medical (4) Asthma: Code(s): J45.909 - Unspecified asthma, uncomplicated Category: Medical Qualifiers: Asthma severity: moderate Asthma persistence: persistent Asthma complication type: uncomplicated Qualified Code(s): J45.40 - Moderate persistent asthma, uncomplicated (5) Hyperthyroidism: Code(s): E05.90 - Thyrotoxicosis, unspecified without thyrotoxic crisis or storm Category: Medical Plan - Major Depressive Disorder: Continue current psychiatric care. Follow non-pharmacological strategies advised by psychiatry. - Asthma: Increase monitoring and albuterol use as needed; consider weather-related factors. Add long acting inhaler. - Anxiety Disorder: Continue Buspirone, discuss potential need for adjustment based on symptoms. - Marmolejo's Esophagus: Follow-up with title manager as scheduled. - Hyperthyroidism: Referral to endocrinology for reinstatement of management despite previous healthcare provider changes. - Costochondritis: Encourage activity modifications; consider topical treatment for inflammation. - Dry Eye Syndrome: Recommend [id number] preservative-free artificial tears. - Glaucoma: Continue monitoring intraocular pressure as directed by ophthalmology. Patient was informed and verbally consented to the use of an ambient scribe for clinic note documentation during this visit. We extensively discussed the management of depression and anxiety, emphasizing the importance of both pharmacological and non-pharmacological interventions. I highlighted the need for regular respiratory care in asthma management, especially during colder weather. I reassured the patient regarding the recent normal cardiovascular investigations, proposing costochondritis as a possible cause of her chest pain and explaining its activity-related nature. We reviewed the importance of upcoming follow-up appointments with gastroenterology and discussed referral needs for endocrinology. Orders: Orders Thyroid Stimulating Hormone Today E05.00 - Thyrotoxicosis with diffuse goiter without thyrotoxic crisis or storm Influenza 5620-6826 Immunization Today Z23 - Encounter for immunization Vitamin D 25-OH Total Today E55.9 - Vitamin D deficiency, unspecified Referrals Endocrinology Referral E05.00 - Thyrotoxicosis with diffuse goiter without thyrotoxic crisis or storm, E05.90 - Thyrotoxicosis, unspecified without thyrotoxic crisis or storm Medications: New umeclidinium-vilanterol 62.5-25 mcg/actuation (Anoro Ellipta) 1 inh inhalation DAILY 60 ea 1RF 60 days J45.40 - Moderate persistent asthma, uncomplicated Patient Instructions: - Report any worsening of chest pain or breathing difficulties. - Use artificial eye drops as needed for dry eyes. - Continue following-up with psychiatrist for mental health management. - Meet scheduled follow-ups with gastroenterology and will be refer to endocrinology. - Avoid heavy physical activity if it exacerbates chest discomfort. - Adhere to the current regimen for asthma management. - Purchase [id number] artificial tears, ensuring they are preservative-free.
== END 2024-07-08 10:13 | disposition home or self-care (01) ==
PROVIDERS: PCP Internal Medicine; Visit Provider Internal Medicine
DX: K22.70 Barrett's esophagus without dysplasia (principal); F33.0 Major depressive disorder, recurrent, mild; F41.1 Generalized anxiety disorder; J45.40 Moderate persistent asthma, uncomplicated; E05.90 Thyrotoxicosis, unspecified without thyrotoxic crisis or storm; Z23 Encounter for immunization

== ENCOUNTER 2024-07-08 09:18 | Outpatient (REF) | payer OTHER, SELFPAY ==
[2024-07-08 12:18] LABS: Vitamin D 25-OH Total 23.7 ng/mL (>30)
== END 2024-07-08 09:19 | disposition home or self-care (01) ==
LOC: HO.LAB 09:18
PROVIDERS: PCP Internal Medicine; Visit Provider Internal Medicine
DX: K22.70 Barrett's esophagus without dysplasia (principal); F33.0 Major depressive disorder, recurrent, mild; F41.1 Generalized anxiety disorder; Z23 Encounter for immunization; J45.40 Moderate persistent asthma, uncomplicated; M94.0 Chondrocostal junction syndrome [Tietze]; H04.129 Dry eye syndrome of unspecified lacrimal gland; H40.9 Unspecified glaucoma; E05.00 Thyrotoxicosis with diffuse goiter without thyrotoxic crisis or storm; E55.9 Vitamin D deficiency, unspecified
CPT/HCPCS: 36415; 82306; 84443; 90471; 90656; 99212

== ENCOUNTER 2024-07-15 14:55 | Outpatient (AMB) | payer OTHER, SELFPAY ==
--- NOTE | 2024-07-15 14:57 | A.OFFVIS_ITS ---
Vital Signs 3 07/15/24 14:59 Height 5 ft Weight 157 lb 3.033 oz BMI 30.7 BP 120/82 Blood Pressure Location Lt brachial Position Sitting Pulse 66 Pulse Source Pulse Oximeter Intake Visit Reasons: Thyrotoxicosis Intake Note: New patient present today for Thyrotoxicosis office visit. Unit Aide Required: No Accompanied by: Self / Same As Patient Allergies No Known Allergies Allergy (Verified 07/15/24 15:03) Medication List - Last Reconciled 07/15/24 by Joycelyn Bishop MD albuterol sulfate 90 mcg/actuation (ProAir RespiClick) 2 inhalations inhalation Q6H PRN 30 days albuterol sulfate 2.5 mg (3 mL) inhalation Q6H PRN 30 days blood pressure monitor (Blood Pressure Kit) As directed buspirone 5 mg PO BID cetirizine (Zyrtec) 10 mg PO DAILY PRN cholecalciferol (vitamin D3) 125 mcg PO DAILY 30 days cyclobenzaprine 10 mg PO TID PRN esomeprazole magnesium (Nexium) 40 mg PO DAILY fluticasone propionate 50 mcg/actuation (Flonase Allergy Relief) 2 sprays intranasal DAILY ketotifen fumarate 0.025%(0.035%) (Eye Itch Relief) drps ophthalmic (eye) linaclotide (Linzess) 145 mcg PO DAILY meclizine 25 mg PO DAILY PRN 30 days methimazole 5 mg PO DAILY 90 days sucralfate 10 mL PO BEDTIME umeclidinium-vilanterol 62.5-25 mcg/actuation (Anoro Ellipta) 1 inh inhalation DAILY 60 days Ventolin HFA 90 mcg/actuation (albuterol sulfate) 2 puffs inhalation Q6H PRN 30 days NS zolpidem mg PO HPI Comments Details: 53 year old female, here today for follow up for hyperthyroidism . Thought to be due to seronegative Graves disease. Also following up for right solitary thyroid nodule. HPI from prior visit She has history of hyperthyroidism diagnosed on 2013 while she was living in [place], she was started on Methimazole 5 mg daily. She is Currently on MMI 5 mg daily. Denies mouth ulcers, abdominal pain, jaundice, rash. She is complaining of right eye pain, she has graves orbitopathy but muscles are not significantly involved. She denies diplopia. she was complaining of right eye pain in thr past ans she was seen by Dr. Mishra which did not find significant abnormality did not find need to repeats orbital CT. Patient was advised to continue eye lubricant. She has negative antibodies. TSI and TSH RAB is negative, TPO, , normal labs on MMI 5 mg daily. She had fine-needle aspiration of right mid pole nodule on 03/05/2019 cytology was consistent with benign follicular nodule [place] category 2. 01/30/2021: Ultrasound thyroid showed interval increase in the size of the right midpole nodule 02/27/2021: repeat FNA of the right midpole nodule again came with benign cytology [place] category 2. Interval history Last seen in our office in 2021. Currently on methimazole Labs 07/08/2024 showed normal TSH 1. Notes from 2021 mention plan was to take her off methimazole and assess for remission however patient says she was neevr taken off it and has been on methimazole for the past 10 years , currenlty at 5 mg daily , has been on this dose for many years She is still symptomatic despite having normal thyroid function test. She is having hot flashes, denies heat intolerance, Denies diarrhea, + insomnia, +chronic fatigue, denies sweating, reports intermittent dysphagia, , dysphonia, occasional tremors, occasional palpitations, + irritability, + anxiety, + eye dryness. denies diplopia. Sees opthlamology yearly. Sometimes reports apneic episodes at night. Says sleep study was unremarkable. She is feeling well. And still having discomfort mostly in the right eye. Hysterectomy in 2011 for menorrhagia. no HRT. no fractures. no BMD in the chart. Physical exam General: sitting comfortably in no acute distress HEENT: normocephalic/atraumatic, EOM intact, moist oral mucosa, exophthalmos noted Neck: supple, , palpable right-sided 1 cm nodule, no dorsocervical or supraclavicular fat pads Cardiac: normal heart sounds Pulm: normal breath sounds B/L, no added breath sounds Abd: not distended, no tenderness Extremities: no edema, no signs of myxedema Laboratory Tests 09/26/18 01/09/24 05/27/24 11:05 10:38 10:44 WBC 10.0 Neut % (Auto) 60.2 Absolute Neuts (auto) 6.0 Total Bilirubin 0.2 AST 22 ALT 20 Alkaline Phosphatase 72 TSH TSH Receptor Antibody <6.0 07/08/24 11:12 WBC Neut % (Auto) Absolute Neuts (auto) Total Bilirubin AST ALT Alkaline Phosphatase TSH 1.00 TSH Receptor Antibody Imaging US THYROID 01/30/21 CLINICAL INFORMATION: Thyrotoxicosis with diffuse goiter. COMPARISON: Ultrasound thyroid soft tissues neck 12/23/2018 and ultrasound thyroid soft tissues neck 06/26/2017. TECHNIQUE: Linear transducer grayscale and color Doppler examination with attention to the region of the thyroid. FINDINGS: SIZE: Measurements of the thyroid lobes and nodules are given in sagittal, anteroposterior and transverse dimensions respectively. Right Thyroid Lobe: 5.4 x 1.9 x 2.2 cm, volume 11.8 mL. Previously 5.6 x 1.6 x 1.8 cm, volume 8.4 mL. Parenchyma: The gland echotexture is homogeneous. Thyroid vascularity is increased. Left Thyroid Lobe: 4.5 x 1.0 x 1.6 cm, volume 3.8 mL. Previously 4.3 x 1.1 x 1.6 cm, volume 4.0 mL. Parenchyma: The gland echotexture is homogeneous. Thyroid vascularity is increased. Isthmus: 0.3 cm in maximum AP dimension. Previously 0.3 cm. Estimated total number of nodules greater than or equal to 1 cm: 1. Contract Officer nodules are described as follows: 1. Location: Right mid. Size: 1.5 x 1.1 x 1.4 cm, volume 1.2 mL. Previously: 1.5 x 0.8 x 1.1 cm, volume 0.70 mL. Nodule characteristics: Composition: Solid/almost completely solid (2). Echogenicity: Hyperechoic (1). Shape: Not taller than wide (0). Margins: Smooth (0). Echogenic Foci: None (0). ACR TI-RADS total points: 3 ACR TI-RADS category: 3 Significant change in size (>/= 20% in 2 dimensions and minimal increase of 2 mm or 50% or greater increase in volume): Yes Change in features: No Change in ACR TI-RADS risk category: No NODES: No lymphadenopathy is seen in the tissue surrounding the thyroid gland. US/US thyroid IMPRESSION: Slightly enlarged right lobe. Interval increase in size in the solitary right nodule from 2017 exam.. US thyroid 12/23/18 Right Thyroid Lobe: 5.6 x 1.6 x 1.8 cm, volume 8.4 mL. Previously 5.1 x 1.2 x 1.5 cm, volume 4.9 mL. Parenchyma: The gland echotexture is homogeneous. Thyroid vascularity is normal. Left Thyroid Lobe: 4.3 x 1.1 x 1.6 cm, volume 4.0 mL. Previously 4.3 x 1.1 x 1.5 cm, volume 3.6 mL. Parenchyma: The gland echotexture is homogeneous. Thyroid vascularity is normal. Isthmus: 0.3 cm in maximum AP dimension. Previously 0.3 cm. RIGHT THYROID LOBE: There is 1 nodule seen. 1. Location: Middle. Size: 1.5 x 0.8 x 1.1 cm. Previous: 0.9 x 0.5 x 0.8 cm. Nodule characteristics: Heterogeneous/complex cystic, smooth margin, no calcification and positive peripheral flow. This is increased in size from June 2017 ultrasound.. ISTHMUS: No nodules. LEFT THYROID LOBE: No nodules. NODES: No lymphadenopathy is seen in the tissue surrounding the thyroid gland. 24 h uptake scan 07/30/17 The uptake is 17.3% at 4 hours and 36.4% at 24 hours. Mildly increased radioiodine uptake with increased trapping function. The gland is slightly enlarged. These findings are consistent with Graves' disease. 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 Chronic idiopathic constipation Sessile serrated polyp of colon Sinusitis ROBBIE (generalized anxiety disorder) Mild recurrent major depression GERD (gastroesophageal reflux disease) Fibromyalgia Obesity, Class I, BMI 30-34.9 Obese Vertigo Tricuspid regurgitation Mitral valve regurgitation Vitamin D deficiency Graves' orbitopathy Uninodular goiter Asthma Graves disease Hyperthyroidism Surgical History History of esophagogastroduodenoscopy (EGD) Hx of colonoscopy History of endometrial ablation H/O ultrasound guided needle biopsy S/P fine needle aspiration Hx of hysterectomy Family History Father CVD (cardiovascular disease) Hypertension Mother CVD (cardiovascular disease) Hypertension Diabetes Son Mental health disorder Social History Household Members: Children Housing: Apartment Alcohol intake: never Patient Tobacco Use Status: Never used Tobacco e-Cigarette/Vaping Use: Never Used Second Hand Smoke Exposure: No Advance Directives Date on File: 05/18/20 service: No Current occupational status: unemployed Cognitive needs: No Hearing needs: No Vision needs: Yes Assessment & Plan Assessment & Plan (1) Hyperthyroidism: Code(s): E05.90 - Thyrotoxicosis, unspecified without thyrotoxic crisis or storm Category: Medical Plan: 53-year-old female with past medical history significant for Graves disease and solitary right-sided thyroid nodule. Diagnosed with Graves disease in 2013 in [place], has been on methimazole 5 mg daily for the past 10 years. She still has quite a few symptoms, however TSH normal from 07/08/2024. Currently on methimazole 5 mg daily. She is tolerating it well. Reportedly her TSI and trap antibodies have been negative in the past, so she has seronegative Graves disease, she had an uptake and scan in 2016 which showed diffuse increased uptake consistent with Graves disease. At this point she has been on methimazole for the past 10 years, and I will consider taking her off it to assess for remission, however I will repeat her free T4, total T3 as well as recheck her antibody levels to ensure more likelihood of success. She also has a history of solitary right-sided thyroid nodule from 2018 which was biopsied in 2018 with benign cytology. The biopsy was repeated February 2021 due to increased size of the right midpole nodule with a again benign cytology. She has not had recent repeat ultrasound, and complains of difficulty swallowing intermittently. She also has Graves orbitopathy, she follows with Ophthalmology yearly. At this time no bothersome symptoms except chronic dryness. Eye exam showed mild exophthalmos, no lid lag. Plan: -ordered TSH, free T4, total T3, TSI and trap antibodies -ordered thyroid ultrasound -follow up in 6 weeks to discuss results (2) Graves disease: Code(s): E05.00 - Thyrotoxicosis with diffuse goiter without thyrotoxic crisis or storm Category: Medical Plan: See above (3) Uninodular goiter: Code(s): E04.1 - Nontoxic single thyroid nodule Category: Medical Plan: See above Plan I spent 30 minutes in reviewing the record, seeing the patient and documenting in the medical record. Orders: Orders 2 Thyrotropin Receptor Antibody Today E04.1 - Nontoxic single thyroid nodule, E05.00 - Thyrotoxicosis with diffuse goiter without thyrotoxic crisis or storm, E05.90 - Thyrotoxicosis, unspecified without thyrotoxic crisis or storm Thyroid Stimulating Immunoglob Today E04.1 - Nontoxic single thyroid nodule, E05.00 - Thyrotoxicosis with diffuse goiter without thyrotoxic crisis or storm, E05.90 - Thyrotoxicosis, unspecified without thyrotoxic crisis or storm US thyroid Today E04.1 - Nontoxic single thyroid nodule, E05.00 - Thyrotoxicosis with diffuse goiter without thyrotoxic crisis or storm, E05.90 - Thyrotoxicosis, unspecified without thyrotoxic crisis or storm Free T4 (Free Thyroxine) Today E04.1 - Nontoxic single thyroid nodule, E05.00 - Thyrotoxicosis with diffuse goiter without thyrotoxic crisis or storm, E05.90 - Thyrotoxicosis, unspecified without thyrotoxic crisis or storm Triiodothyronine T3 Total Today E04.1 - Nontoxic single thyroid nodule, E05.00 - Thyrotoxicosis with diffuse goiter without thyrotoxic crisis or storm, E05.90 - Thyrotoxicosis, unspecified without thyrotoxic crisis or storm Thyroid Peroxidase Antibodies Today E04.1 - Nontoxic single thyroid nodule, E05.00 - Thyrotoxicosis with diffuse goiter without thyrotoxic crisis or storm, E05.90 - Thyrotoxicosis, unspecified without thyrotoxic crisis or storm Patient Instructions: Do blood work Do thyroid ultrasound Follow up in 6 weeks to discuss results Coding Level of Care Code Est Pt Level 4 (57118) Diagnoses Hyperthyroidism E05.90 Graves disease E05.00 Uninodular goiter E04.1 Time Spent (min) 30
[2024-07-15 14:59] VITALS: BP 120/82; PULSE 66; BMI 30.7
== END 2024-07-15 15:30 | disposition home or self-care (01) ==
PROVIDERS: PCP Internal Medicine; Visit Provider Student in an Organized Health Care Education/Training Program
DX: E05.90 Thyrotoxicosis, unspecified without thyrotoxic crisis or storm (principal); E05.00 Thyrotoxicosis with diffuse goiter without thyrotoxic crisis or storm; E04.1 Nontoxic single thyroid nodule
CPT/HCPCS: 99214

== ENCOUNTER 2024-07-15 14:55 | Outpatient (REF) | payer OTHER, SELFPAY ==
[2024-07-15 17:38] LABS: Free T4 (Free Thyroxine) 0.86 ng/dL (0.71-1.85)
[2024-07-16 08:26] LABS: Thyroid Stimulating Hormone 1.02 uIU/mL (0.32-4.0)
[2024-07-16 13:09] LABS: Triiodothyronine T3 Total 113 ng/dL (76-181)
[2024-07-16 21:44] LABS: Thyroid Peroxidase Antibodies 1 IU/mL (<9)
[2024-07-19 22:38] LABS: Thyrotropin Receptor Antibody 5.58 IU/L (<=2.00)
[2024-07-20 15:43] LABS: Thyroid Stimulating Immunoglob <89 % baseline (<140)
== END 2024-07-15 14:56 | disposition home or self-care (01) ==
LOC: HO.LAB 14:55
PROVIDERS: PCP Internal Medicine; Visit Provider Student in an Organized Health Care Education/Training Program
DX: E05.90 Thyrotoxicosis, unspecified without thyrotoxic crisis or storm (principal); E05.00 Thyrotoxicosis with diffuse goiter without thyrotoxic crisis or storm; E04.1 Nontoxic single thyroid nodule
CPT/HCPCS: 36415; 83520; 84439; 84443; 84445; 84480; 86376; 99212

== ENCOUNTER 2024-08-17 10:19 | Outpatient (REF) | payer OTHER, SELFPAY ==
--- NOTE | ~2024-08-17 | US_ITS ---
EXAMINATION: US THYROID CLINICAL INFORMATION: Thyrotoxicosis, unspecified. Single thyroid nodule. COMPARISON: Thyroid FNA 02/27/2021. (Benign) Thyroid ultrasound 01/30/2021. TECHNIQUE: Linear transducer grayscale and color Doppler examination with attention to the region of the thyroid. FINDINGS: SIZE: Measurements of the thyroid lobes and nodules are given in sagittal, anteroposterior and transverse dimensions respectively. Right Thyroid Lobe: 5.4 x 1.9 x 2.1 cm, volume 11.2 mL. Parenchyma: The gland echotexture is normal. Thyroid vascularity is normal. Left Thyroid Lobe: 4.6 x 1.1 x 1.9 cm, volume 5.1 mL. Parenchyma: The gland echotexture is normal. Thyroid vascularity is normal. Isthmus: 0.3 cm in maximum AP dimension. Estimated total number of nodules greater than or equal to 1 cm: 1. 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 Location: Right mid pole. Size: 1.5 x 1.2 x 1.3 cm, volume 1.3 mL. (Previously 1.5 x 1.1 x 1.4 cm, with volume = 1.2 mL). Nodule characteristics: Composition: Solid (2). Echogenicity: Isoechoic (1). Shape: Not taller than wide (0). Margins: Smooth (0). Echogenic Foci: None (0). ACR TI-RADS total points: 3 ACR TI-RADS category: 3 NODES: No lymphadenopathy is seen in the tissue surrounding the thyroid gland. US/US thyroid IMPRESSION: 1. There is a 1.5 cm TR category 3 nodule right mid pole, essentially unchanged. Prior FNA was benign. 2. The remainder of the thyroid gland is normal. ACR TI-RADS RECOMMENDATION REFERENCE: Ultrasound-guided fine-needle aspiration, followup ultrasound, no further follow up. * TR1 (0 point) and TR2 (2 points): No FNA or follow up. * TR3 (3 points): FNA if more than or equal to 2.5 cm in maximum dimension, followup ultrasound in 1, 3 and 5 years if 1.5 to 2.4 cm in maximum dimension. * TR4 (4-6 points): FNA if more than or equal to 1.5 cm in maximum dimension, followup ultrasound in 1, 2, 3 and 5 years if 1 to 1.4 cm in maximum dimension. * TR5 (more than or equal to 7 points): FNA if more than or equal to 1 cm in maximum dimension, followup ultrasound every year for 5 years if 0.5 to 0.9 cm in maximum dimension. * TR3, TR4 or TR5 nodules that are below the size threshold for followup receive no follow up. Electronically signed by: Faraz Valenzuela MD 08/18/2024 02:37 PM [facility]
== END 2024-08-17 10:20 | disposition home or self-care (01) ==
LOC: HO.US 10:19
PROVIDERS: PCP Internal Medicine; Visit Provider Student in an Organized Health Care Education/Training Program
DX: E04.1 Nontoxic single thyroid nodule (principal); E05.00 Thyrotoxicosis with diffuse goiter without thyrotoxic crisis or storm
CPT/HCPCS: 76536

== ENCOUNTER → 2024-08-17 10:21 | Outpatient (BNV) | payer OTHER, SELFPAY | PROVIDERS: PCP Internal Medicine; Visit Provider Radiology Diagnostic Radiology | DX: E05.10 Thyrotoxicosis with toxic single thyroid nodule without thyrotoxic crisis or storm (principal) | CPT/HCPCS: 76536 ==

== ENCOUNTER 2024-08-27 15:21 | Outpatient (AMB) | payer OTHER, SELFPAY ==
[2024-08-27 15:24] VITALS: BP 124/78; PULSE 70; BMI 30.7
--- NOTE | 2024-08-27 15:24 | MHC.OFFVIS ---
Vital Signs 08/27/24 15:24 Height 5 ft Weight 156 lb 15.506 oz BMI 30.7 BP 124/78 Blood Pressure Location Lt brachial Position Sitting Pulse 70 Pulse Source Pulse Oximeter Intake Visit Reasons: Thyrotoxicosis Intake Note: Patient present today for Thyrotoxicosis office visit. Cotton Washer Required: No Accompanied by: Self / Same As Patient Allergies No Known Allergies Allergy (Verified 08/27/24 15:28) Medication List - Last Reconciled 08/27/24 by Joycelyn Bishop MD albuterol sulfate 90 mcg/actuation (ProAir RespiClick) 2 inhalations inhalation Q6H PRN 30 days albuterol sulfate 2.5 mg (3 mL) inhalation Q6H PRN 30 days blood pressure monitor (Blood Pressure Kit) As directed buspirone 5 mg PO BID cetirizine (Zyrtec) 10 mg PO DAILY PRN cholecalciferol (vitamin D3) 125 mcg PO DAILY 30 days cyclobenzaprine 10 mg PO TID PRN esomeprazole magnesium (Nexium) 40 mg PO DAILY fluticasone propionate 50 mcg/actuation (Flonase Allergy Relief) 2 sprays intranasal DAILY ketotifen fumarate 0.025%(0.035%) (Eye Itch Relief) drps ophthalmic (eye) linaclotide (Linzess) 145 mcg PO DAILY meclizine 25 mg PO DAILY PRN 30 days methimazole 2.5 mg (1/2 x 5 mg) PO DAILY 90 days sucralfate 10 mL PO BEDTIME umeclidinium-vilanterol 62.5-25 mcg/actuation (Anoro Ellipta) 1 inh inhalation DAILY 60 days Ventolin HFA 90 mcg/actuation (albuterol sulfate) 2 puffs inhalation Q6H PRN 30 days NS zolpidem mg PO HPI Comments Details: 53 year old female, here today for follow up for hyperthyroidism . Thought to be due to seronegative Graves disease. Also following up for right solitary thyroid nodule. HPI from prior visit She has history of hyperthyroidism diagnosed on 2013 while she was living in [place], she was started on Methimazole 5 mg daily. She is Currently on MMI 5 mg daily. Denies mouth ulcers, abdominal pain, jaundice, rash. She is complaining of right eye pain, she has graves orbitopathy but muscles are not significantly involved. She denies diplopia. she was complaining of right eye pain in thr past ans she was seen by Dr. Mishra which did not find significant abnormality did not find need to repeats orbital CT. Patient was advised to continue eye lubricant. She has negative antibodies. TSI and TSH RAB is negative, TPO, , normal labs on MMI 5 mg daily. She had fine-needle aspiration of right mid pole nodule on 03/05/2019 cytology was consistent with benign follicular nodule [place] category 2. 01/30/2021: Ultrasound thyroid showed interval increase in the size of the right midpole nodule 02/27/2021: repeat FNA of the right midpole nodule again came with benign cytology [place] category 2. Currently on methimazole Labs 07/08/2024 showed normal TSH 1. Notes from 2021 mention plan was to take her off methimazole and assess for remission however patient says she was neevr taken off it and has been on methimazole for the past 10 years , currenlty at 5 mg daily , has been on this dose for many years Interval history She is still symptomatic despite having normal thyroid function test. She is having hot flashes, denies heat intolerance, Denies diarrhea, + insomnia, +chronic fatigue, denies sweating, reports intermittent dysphagia, , dysphonia, occasional tremors, occasional palpitations, + irritability, + anxiety, + eye dryness. denies diplopia. Sees opthlamology yearly. Sometimes reports apneic episodes at night. Says sleep study was unremarkable. She is feeling well. And still having discomfort mostly in the right eye. Hysterectomy in 2011 for menorrhagia. no HRT. no fractures. no BMD in the chart. Ultrasound thyroid from 08/17/2024 showed stable size of the right midpole nodule at 1.5 cm. Labs 07/15/2024 showed normal TSH at 01:02, normal free T4 of 0.86, normal total T3 of 113, TSI antibodies undetectable, TSH receptor antibody positive at 5.58, this is consistent with Graves disease Physical exam General: sitting comfortably in no acute distress HEENT: normocephalic/atraumatic, EOM intact, moist oral mucosa, exophthalmos noted Neck: supple, , palpable right-sided 1 cm nodule, no dorsocervical or supraclavicular fat pads Cardiac: normal heart sounds Pulm: normal breath sounds B/L, no added breath sounds Abd: not distended, no tenderness Extremities: no edema, no signs of myxedema Laboratory Tests 09/26/18 01/09/24 05/27/24 11:05 10:38 10:44 WBC 10.0 Neut % (Auto) 60.2 Absolute Neuts (auto) 6.0 Total Bilirubin 0.2 AST 22 ALT 20 Alkaline Phosphatase 72 TSH TSH Receptor Antibody <6.0 07/08/24 11:12 WBC Neut % (Auto) Absolute Neuts (auto) Total Bilirubin AST ALT Alkaline Phosphatase TSH 1.00 TSH Receptor Antibody Laboratory Tests 07/15/24 15:48 TSH 1.02 Free T4 0.86 Total T3 113 Thyroid Stim Immunoglob <89 Thyroid Peroxidase Ab 1 TSH Receptor Ab 5.58 H Imaging US THYROID 08/17/24 CLINICAL INFORMATION: Thyrotoxicosis, unspecified. Single thyroid nodule. COMPARISON: Thyroid FNA 02/27/2021. (Benign) Thyroid ultrasound 01/30/2021. TECHNIQUE: Linear transducer grayscale and color Doppler examination with attention to the region of the thyroid. FINDINGS: SIZE: Measurements of the thyroid lobes and nodules are given in sagittal, anteroposterior and transverse dimensions respectively. Right Thyroid Lobe: 5.4 x 1.9 x 2.1 cm, volume 11.2 mL. Parenchyma: The gland echotexture is normal. Thyroid vascularity is normal. Left Thyroid Lobe: 4.6 x 1.1 x 1.9 cm, volume 5.1 mL. Parenchyma: The gland echotexture is normal. Thyroid vascularity is normal. Isthmus: 0.3 cm in maximum AP dimension. Estimated total number of nodules greater than or equal to 1 cm: 1. Clinical Product Specialist nodules are described as follows: 1. Location: Right mid pole. Size: 1.5 x 1.2 x 1.3 cm, volume 1.3 mL. (Previously 1.5 x 1.1 x 1.4 cm, with volume = 1.2 mL). Nodule characteristics: Composition: Solid (2). Echogenicity: Isoechoic (1). Shape: Not taller than wide (0). Margins: Smooth (0). Echogenic Foci: None (0). ACR TI-RADS total points: 3 ACR TI-RADS category: 3 NODES: No lymphadenopathy is seen in the tissue surrounding the thyroid gland. US/US thyroid IMPRESSION: 1. There is a 1.5 cm TR category 3 nodule right mid pole, essentially unchanged. Prior FNA was benign. 2. The remainder of the thyroid gland is normal. US THYROID 01/30/21 CLINICAL INFORMATION: Thyrotoxicosis with diffuse goiter. COMPARISON: Ultrasound thyroid soft tissues neck 12/23/2018 and ultrasound thyroid soft tissues neck 06/26/2017. TECHNIQUE: Linear transducer grayscale and color Doppler examination with attention to the region of the thyroid. FINDINGS: SIZE: Measurements of the thyroid lobes and nodules are given in sagittal, anteroposterior and transverse dimensions respectively. Right Thyroid Lobe: 5.4 x 1.9 x 2.2 cm, volume 11.8 mL. Previously 5.6 x 1.6 x 1.8 cm, volume 8.4 mL. Parenchyma: The gland echotexture is homogeneous. Thyroid vascularity is increased. Left Thyroid Lobe: 4.5 x 1.0 x 1.6 cm, volume 3.8 mL. Previously 4.3 x 1.1 x 1.6 cm, volume 4.0 mL. Parenchyma: The gland echotexture is homogeneous. Thyroid vascularity is increased. Isthmus: 0.3 cm in maximum AP dimension. Previously 0.3 cm. Estimated total number of nodules greater than or equal to 1 cm: 1. Clinical Product Specialist nodules are described as follows: 1. Location: Right mid. Size: 1.5 x 1.1 x 1.4 cm, volume 1.2 mL. Previously: 1.5 x 0.8 x 1.1 cm, volume 0.70 mL. Nodule characteristics: Composition: Solid/almost completely solid (2). Echogenicity: Hyperechoic (1). Shape: Not taller than wide (0). Margins: Smooth (0). Echogenic Foci: None (0). ACR TI-RADS total points: 3 ACR TI-RADS category: 3 Significant change in size (>/= 20% in 2 dimensions and minimal increase of 2 mm or 50% or greater increase in volume): Yes Change in features: No Change in ACR TI-RADS risk category: No NODES: No lymphadenopathy is seen in the tissue surrounding the thyroid gland. US/US thyroid IMPRESSION: Slightly enlarged right lobe. Interval increase in size in the solitary right nodule from 2017 exam.. US thyroid 12/23/18 Right Thyroid Lobe: 5.6 x 1.6 x 1.8 cm, volume 8.4 mL. Previously 5.1 x 1.2 x 1.5 cm, volume 4.9 mL. Parenchyma: The gland echotexture is homogeneous. Thyroid vascularity is normal. Left Thyroid Lobe: 4.3 x 1.1 x 1.6 cm, volume 4.0 mL. Previously 4.3 x 1.1 x 1.5 cm, volume 3.6 mL. Parenchyma: The gland echotexture is homogeneous. Thyroid vascularity is normal. Isthmus: 0.3 cm in maximum AP dimension. Previously 0.3 cm. RIGHT THYROID LOBE: There is 1 nodule seen. 1. Location: Middle. Size: 1.5 x 0.8 x 1.1 cm. Previous: 0.9 x 0.5 x 0.8 cm. Nodule characteristics: Heterogeneous/complex cystic, smooth margin, no calcification and positive peripheral flow. This is increased in size from June 2017 ultrasound.. ISTHMUS: No nodules. LEFT THYROID LOBE: No nodules. NODES: No lymphadenopathy is seen in the tissue surrounding the thyroid gland. 24 h uptake scan 07/30/17 The uptake is 17.3% at 4 hours and 36.4% at 24 hours. Mildly increased radioiodine uptake with increased trapping function. The gland is slightly enlarged. These findings are consistent with Graves' disease. 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 Chronic idiopathic constipation Sessile serrated polyp of colon Sinusitis ROBBIE (generalized anxiety disorder) Mild recurrent major depression GERD (gastroesophageal reflux disease) Fibromyalgia Obesity, Class I, BMI 30-34.9 Obese Vertigo Tricuspid regurgitation Mitral valve regurgitation Vitamin D deficiency Graves' orbitopathy Uninodular goiter Asthma Graves disease Hyperthyroidism Surgical History History of esophagogastroduodenoscopy (EGD) Hx of colonoscopy History of endometrial ablation H/O ultrasound guided needle biopsy S/P fine needle aspiration Hx of hysterectomy Family History Father CVD (cardiovascular disease) Hypertension Mother CVD (cardiovascular disease) Hypertension Diabetes Son Mental health disorder Social History Household Members: Children Housing: Apartment Alcohol intake: never Patient Tobacco Use Status: Never used Tobacco e-Cigarette/Vaping Use: Never Used Second Hand Smoke Exposure: No Advance Directives Date on File: 05/18/20 service: No Current occupational status: unemployed Cognitive needs: No Hearing needs: No Vision needs: Yes Assessment & Plan Assessment & Plan (1) Hyperthyroidism: Code(s): E05.90 - Thyrotoxicosis, unspecified without thyrotoxic crisis or storm Category: Medical Plan: 53-year-old female with past medical history significant for Graves disease and solitary right-sided thyroid nodule. Diagnosed with Graves disease in 2013 in [place], has been on methimazole 5 mg daily for the past 10 years. She still has quite a few symptoms, however TSH normal from 07/08/2024. Currently on methimazole 5 mg daily. She is tolerating it well. Reportedly her TSI and trap antibodies have been negative in the past, , she had an uptake and scan in 2016 which showed diffuse increased uptake consistent with Graves disease. At this point she has been on methimazole for the past 10 years, Labs 07/15/2024 showed normal TSH at 01:02, normal free T4 of 0.86, normal total T3 of 113, TSI antibodies undetectable, TSH receptor antibody positive at 5.58, this is consistent with Graves disease. Given positive TSH receptor antibody I am a little hesitant to take her off methimazole completely, however we will slowly start decreasing the dose. She also has a history of solitary right-sided thyroid nodule from 2018 which was biopsied in 2018 with benign cytology. The biopsy was repeated February 2021 due to increased size of the right midpole nodule with a again benign cytology. Ultrasound thyroid from 08/17/2024 showed stable size of the right midpole nodule at 1.5 cm. No need to repeat thyroid ultrasound unless patient has any clinical changes. She also has Graves orbitopathy, she follows with Ophthalmology yearly. Today she is complaining of right eye pain. Eye exam showed mild exophthalmos, no lid lag. I am placing referral again to Dr. Aguilar's office whom she used to follow with previously for Graves orbitopathy. Plan: -reduce methimazole to 2.5 mg daily -ordered TSH, free T4, total T3 to be done in 5 weeks prior to follow up in 6 weeks (2) Graves disease: Code(s): E05.00 - Thyrotoxicosis with diffuse goiter without thyrotoxic crisis or storm Category: Medical Plan: See above (3) Uninodular goiter: Code(s): E04.1 - Nontoxic single thyroid nodule Category: Medical Plan: See above Plan I spent 30 minutes in reviewing the record, seeing the patient and documenting in the medical record. Orders: Orders Thyroid Stimulating Hormone 5 Weeks E05.00 - Thyrotoxicosis with diffuse goiter without thyrotoxic crisis or storm, E05.90 - Thyrotoxicosis, unspecified without thyrotoxic crisis or storm Free T4 (Free Thyroxine) 5 Weeks E05.00 - Thyrotoxicosis with diffuse goiter without thyrotoxic crisis or storm, E05.90 - Thyrotoxicosis, unspecified without thyrotoxic crisis or storm Triiodothyronine T3 Total 5 Weeks E05.00 - Thyrotoxicosis with diffuse goiter without thyrotoxic crisis or storm, E05.90 - Thyrotoxicosis, unspecified without thyrotoxic crisis or storm Referrals Ophthalmology Referral E05.00 - Thyrotoxicosis with diffuse goiter without thyrotoxic crisis or storm Medications: Changed From methimazole 5 mg PO DAILY 90 days 90 tabs 3RF E05.00 - Thyrotoxicosis with diffuse goiter without thyrotoxic crisis or storm To methimazole 2.5 mg (1/2 x 5 mg) PO DAILY 90 days 45 tabs 3RF E05.00 - Thyrotoxicosis with diffuse goiter without thyrotoxic crisis or storm Patient Instructions: Decrease methimazole to 2.5 mg ( half a tablet daily) Do blood work in 5 weeks a few days prior to your next appointment with me in 6 weeks Coding Level of Care Code Est Pt Level 4 (55482) Diagnoses Hyperthyroidism E05.90 Graves disease E05.00 Uninodular goiter E04.1
== END 2024-08-27 15:43 | disposition home or self-care (01) ==
PROVIDERS: PCP Internal Medicine; Visit Provider Student in an Organized Health Care Education/Training Program
DX: E05.90 Thyrotoxicosis, unspecified without thyrotoxic crisis or storm (principal); E05.00 Thyrotoxicosis with diffuse goiter without thyrotoxic crisis or storm; E04.1 Nontoxic single thyroid nodule
CPT/HCPCS: 99214

== ENCOUNTER → 2024-08-27 15:21 | Outpatient (BNVA) | payer OTHER, SELFPAY | PROVIDERS: PCP Internal Medicine; Visit Provider Student in an Organized Health Care Education/Training Program | DX: E05.00 Thyrotoxicosis with diffuse goiter without thyrotoxic crisis or storm (principal); E04.1 Nontoxic single thyroid nodule | CPT/HCPCS: 99212 ==

== ENCOUNTER 2024-09-22 12:23 | Outpatient (AMB) | payer OTHER, SELFPAY ==
--- NOTE | 2024-09-22 12:28 | A.OFFVIS_ITS ---
Vital Signs 09/22/24 12:31 Height 5 ft Weight 154 lb 12.232 oz BMI 30.2 BP 128/78 Blood Pressure Location Lt brachial Position Sitting Pulse 64 Pulse Source Pulse Oximeter Pulse Oximetry (%) 100 Oxygen Delivery Method Room Air Intake Visit Reasons: 6 MO F/U r/s 09/15 Intake Note: ESTABLISHED PATIENT for mgmt of Marmolejo's, GERD, and chronic constipation. Chief Complaint; no complaints. Pharmacy verified? 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 Continue avoiding dietary triggers. Patient will need to return for upper endoscopy in October of 2025. Continue taking Linzess. Increase fluid intake and activity to promote better bowel motility. Follow-up in 6 months, sooner on as needed basis. Patient is agreeable to this plan and verbalizes understanding of instructions was given the opportunity to ask questions and all questions answered. ? Thank you for allowing me to participate in her care Medications Refilled esomeprazole magnesium (Nexium) 40 mg PO DAILY 90 caps 2RF K21.9 linaclotide (Linzess) 145 mcg PO DAILY 90 caps 3RF K59.04 TODAY'S VISIT Patient is here today for follow-up. Patient reports that since last visit she has been doing well. Denies any dyspepsia, dysphagia or odynophagia. Feels like acid reflux is controlled for the most part with Nexium. Patient is avoiding dietary triggers as much as possible. Avoid eating late at night. Patient ran out of sucralfate. Occasional reflux at bedtime. Patient reports bowel movements when taking Linzess. Patient denies melena, hematochezia, uni ntentional weight loss or ribbon like stools. Reports that currently of her GI symptoms are controlled for the most part. 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 Chronic idiopathic constipation Sessile serrated polyp of colon Sinusitis ROBBIE (generalized anxiety disorder) Mild recurrent major depression GERD (gastroesophageal reflux disease) Fibromyalgia Obesity, Class I, BMI 30-34.9 Obese Vertigo Tricuspid regurgitation Mitral valve regurgitation Vitamin D deficiency Graves' orbitopathy Uninodular goiter Asthma Graves disease Hyperthyroidism Surgical History History of esophagogastroduodenoscopy (EGD) Hx of colonoscopy History of endometrial ablation H/O ultrasound guided needle biopsy S/P fine needle aspiration Hx of hysterectomy Family History Father CVD (cardiovascular disease) Hypertension Mother CVD (cardiovascular disease) Hypertension Diabetes Son Mental health disorder Social History Household Members: Children Housing: Apartment Alcohol intake: never Patient Tobacco Use Status: Never used Tobacco e-Cigarette/Vaping Use: Never Used Second Hand Smoke Exposure: No Advance Directives Date on File: 05/18/20 service: No Current occupational status: unemployed Cognitive needs: No Hearing needs: No Vision needs: Yes Review of Systems Const Denies weight gain and Denies weight loss ENT Reports no additional complaints, Denies dysphagia and Denies odynophagia Card Reports no additional complaints Resp Reports no additional complaints GI Reports abdominal pain (epigstric), Denies belching, Denies melena, Denies bloating, Denies change in bowel habits, Denies dysphagia, Denies excessive flatus, Denies dyspepsia, Reports heartburn, Denies diarrhea, Denies loose stools, Denies nausea, Denies odynophagia and Denies vomiting Reports no additional complaints Musc Reports no additional complaints Neuro Reports no additional complaints Psych Reports no additional complaints Endo Reports no additional complaints Physical Exam Vital Signs: Last Vital Signs Pulse 64 09/22/24 12:31 BP 128/78 09/22/24 12:31 Pulse Ox 100 09/22/24 12:31 Oxygen Delivery Method Room Air 09/22/24 12:31 BMI result Body Mass Index 30.2 Const General: healthy appearing and no acute distress Nutritional Appearance: obese Orientation/consciousness: patient oriented x3 Resp Effort & Inspection: normal respiratory effort, able to speak in complete sentences, no tracheal deviation and symmetric chest movement Auscultation: clear to auscultation bilaterally Cardio Rate: regular rate Heart sounds: S1 normal heart sound present and S2 normal heart sound present GI Inspection: Yes normal to inspection, No distended and Yes obesity Palpation (GI): Soft to palpation, not firm, nontender and No hepatosplenomegaly present Auscultation: normal bowel sounds General: Yes no CVA tenderness Back/Spine/Pelvis Back: no CVA tenderness Skin General skin exam: elasticity normal, turgor normal and dry skin Neuro General: patient oriented x3 Psych Appearance: grossly normal Mental Status: mental status grossly normal Assessment & Plan Assessment & Plan (1) 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: Code(s): K22.70 - Marmolejo's esophagus without dysplasia Category: Medical (2) Mild recurrent major depression: Code(s): F33.0 - Major depressive disorder, recurrent, mild Category: Medical (3) ROBBIE (generalized anxiety disorder): Code(s): F41.1 - Generalized anxiety disorder Category: Medical (4) Asthma: Code(s): J45.909 - Unspecified asthma, uncomplicated Category: Medical Qualifiers: Asthma complication type: uncomplicated Asthma persistence: persistent Asthma severity: moderate Qualified Code(s): J45.40 - Moderate persistent asthma, uncomplicated (5) Hyperthyroidism: Code(s): E05.90 - Thyrotoxicosis, unspecified without thyrotoxic crisis or storm Category: Medical (6) Chronic idiopathic constipation: Code(s): K59.04 - Chronic idiopathic constipation Category: Medical Plan Continue Nexium every morning half an hour before breakfast. Patient no longer has sucralfate at home. We will send a script pharmacy. Slow patient would avoid eating late at night. Staying upright for minimum 3 hours after meals discussed with her. Patient will start taking Linzess every day. Patient reports that Linzess helps when she takes it. Increase fluid intake and activity to promote better bowel motility. Patient will follow-up in our office in 6 months, sooner on as needed basis. Patient is agreeable to this plan and verbalizes understanding of instructions. She was given the opportunity to ask questions and all questions answered. 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
[2024-09-22 12:31] VITALS: BP 128/78; PULSE 64; O2SAT 100; BMI 30.2
== END 2024-09-22 12:55 | disposition home or self-care (01) ==
PROVIDERS: PCP Internal Medicine; Visit Provider Nurse Practitioner Family
DX: K22.70 Barrett's esophagus without dysplasia (principal); F33.0 Major depressive disorder, recurrent, mild; F41.1 Generalized anxiety disorder; J45.40 Moderate persistent asthma, uncomplicated; E05.90 Thyrotoxicosis, unspecified without thyrotoxic crisis or storm; K59.04 Chronic idiopathic constipation
CPT/HCPCS: 99213

== ENCOUNTER → 2024-09-22 12:23 | Outpatient (BNVA) | payer OTHER, SELFPAY | PROVIDERS: PCP Internal Medicine; Visit Provider Nurse Practitioner Family | DX: K22.70 Barrett's esophagus without dysplasia (principal); K59.04 Chronic idiopathic constipation; K21.9 Gastro-esophageal reflux disease without esophagitis; K58.1 Irritable bowel syndrome with constipation; F33.0 Major depressive disorder, recurrent, mild; F41.1 Generalized anxiety disorder; J45.40 Moderate persistent asthma, uncomplicated; E05.90 Thyrotoxicosis, unspecified without thyrotoxic crisis or storm; E55.9 Vitamin D deficiency, unspecified | CPT/HCPCS: 99212 ==

== ENCOUNTER 2024-10-05 11:25 | Outpatient (REF) | payer OTHER, SELFPAY ==
[2024-10-05 12:55] LABS: Free T4 (Free Thyroxine) 0.91 ng/dL (0.71-1.85); Thyroid Stimulating Hormone 1.22 uIU/mL (0.32-4.0)
[2024-10-06 07:38] LABS: Triiodothyronine T3 Total 94 ng/dL (76-181)
== END 2024-10-05 11:26 | disposition home or self-care (01) ==
LOC: HO.LAB 11:25
PROVIDERS: PCP Internal Medicine; Visit Provider Student in an Organized Health Care Education/Training Program
DX: E05.00 Thyrotoxicosis with diffuse goiter without thyrotoxic crisis or storm (principal)
CPT/HCPCS: 36415; 84439; 84443; 84480

== ENCOUNTER 2024-10-08 13:07 | Outpatient (AMB) | payer OTHER, SELFPAY ==
[2024-10-08 13:11] VITALS: BP 108/72; PULSE 72; O2SAT 97; BMI 30.6
--- NOTE | 2024-10-08 13:11 | A.OFFVIS_ITS ---
Vital Signs 3 10/08/24 13:11 Height 5 ft Weight 156 lb 11.979 oz BMI 30.6 BP 108/72 Blood Pressure Location Lt brachial Position Sitting Pulse 72 Pulse Source Pulse Oximeter Pulse Oximetry (%) 97 Oxygen Delivery Method Room Air Intake Visit Reasons: Thyrotoxicosis Intake Note: Patient present today for Thyrotoxicosis office visit. Animal Taxonomist Required: No Accompanied by: Self / Same As Patient Allergies No Known Allergies Allergy (Verified 10/08/24 13:15) Medication List - Last Reconciled 10/08/24 by Joycelyn Bishop MD albuterol sulfate 90 mcg/actuation (ProAir RespiClick) 2 inhalations inhalation Q6H PRN 30 days albuterol sulfate 2.5 mg (3 mL) inhalation Q6H PRN 30 days blood pressure monitor (Blood Pressure Kit) As directed buspirone 5 mg PO BID cetirizine (Zyrtec) 10 mg PO DAILY PRN cholecalciferol (vitamin D3) 125 mcg PO DAILY 90 days cyclobenzaprine 10 mg PO TID PRN esomeprazole magnesium (Nexium) 40 mg PO DAILY fluticasone propionate 50 mcg/actuation (Flonase Allergy Relief) 2 sprays intranasal DAILY ketotifen fumarate 0.025%(0.035%) (Eye Itch Relief) drps ophthalmic (eye) linaclotide (Linzess) 145 mcg PO DAILY meclizine 25 mg PO DAILY PRN 30 days methimazole 2.5 mg (1/2 x 5 mg) PO DAILY 90 days sucralfate 10 mL PO BEDTIME umeclidinium-vilanterol 62.5-25 mcg/actuation (Anoro Ellipta) 1 inh inhalation DAILY 60 days Ventolin HFA 90 mcg/actuation (albuterol sulfate) 2 puffs inhalation Q6H PRN 30 days NS zolpidem mg PO HPI Comments Details: 54 year old female, here today for follow up for hyperthyroidism . Thought to be due to seronegative Graves disease. Also following up for right solitary thyroid nodule. HPI from prior visit She has history of hyperthyroidism diagnosed on 2013 while she was living in [place], she was started on Methimazole 5 mg daily. She is Currently on MMI 5 mg daily. Denies mouth ulcers, abdominal pain, jaundice, rash. She is complaining of right eye pain, she has graves orbitopathy but muscles are not significantly involved. She denies diplopia. she was complaining of right eye pain in thr past ans she was seen by Dr. Mishra which did not find significant abnormality did not find need to repeats orbital CT. Patient was advised to continue eye lubricant. She has negative antibodies. TSI and TSH RAB is negative, TPO, , normal labs on MMI 5 mg daily. She had fine-needle aspiration of right mid pole nodule on 03/05/2019 cytology was consistent with benign follicular nodule [place] category 2. 01/30/2021: Ultrasound thyroid showed interval increase in the size of the right midpole nodule 02/27/2021: repeat FNA of the right midpole nodule again came with benign cytology [place] category 2. Labs 07/08/2024 showed normal TSH 1. Notes from 2021 mention plan was to take her off methimazole and assess for remission however patient says she was neevr taken off it and has been on methimazole for the past 10 years , zulmay at 5 mg daily , has been on this dose for many years Ultrasound thyroid from 08/17/2024 showed stable size of the right midpole nodule at 1.5 cm. Labs 07/15/2024 showed normal TSH at 01:02, normal free T4 of 0.86, normal total T3 of 113, TSI antibodies undetectable, TSH receptor antibody positive at 5.58, this is consistent with Graves disease Interval history Last visit in July 1024 we decreased methimazole from 5 mg daily to 2.5 mg daily. She is still symptomatic despite having normal thyroid function test. She is having hot flashes, denies heat intolerance, Denies diarrhea, + insomnia, +chronic fatigue, denies sweating, reports intermittent dysphagia, , dysphonia, occasional tremors, occasional palpitations, + irritability, + anxiety, + eye dryness. denies diplopia. Sees opthlamology yearly. has appointment with Dr. Mauri Casas at [facility] on 10/30/24 Sometimes reports apneic episodes at night. Says sleep study was unremarkable. She is feeling well. And still having discomfort mostly in the right eye. Hysterectomy in 2011 for menorrhagia. no HRT. no fractures. no BMD in the chart. 10/05/2024: TSH 1.22, free T4 0.91, total T3 94, all normal Continues on methimazole 2.5 mg daily Physical exam General: sitting comfortably in no acute distress HEENT: normocephalic/atraumatic, EOM intact, moist oral mucosa, exophthalmos noted Neck: supple, , palpable right-sided 1 cm nodule, no dorsocervical or supraclavicular fat pads Cardiac: normal heart sounds Pulm: normal breath sounds B/L, no added breath sounds Abd: not distended, no tenderness Extremities: no edema, no signs of myxedema Laboratory Tests 09/26/18 01/09/24 05/27/24 11:05 10:38 10:44 WBC 10.0 Neut % (Auto) 60.2 Absolute Neuts (auto) 6.0 Total Bilirubin 0.2 AST 22 ALT 20 Alkaline Phosphatase 72 TSH TSH Receptor Antibody <6.0 07/08/24 11:12 WBC Neut % (Auto) Absolute Neuts (auto) Total Bilirubin AST ALT Alkaline Phosphatase TSH 1.00 TSH Receptor Antibody Laboratory Tests 07/15/24 15:48 TSH 1.02 Free T4 0.86 Total T3 113 Thyroid Stim Immunoglob <89 Thyroid Peroxidase Ab 1 TSH Receptor Ab 5.58 H Laboratory Tests 10/05/24 11:48 TSH 1.22 Free T4 0.91 Total T3 94 Imaging US THYROID 08/17/24 CLINICAL INFORMATION: Thyrotoxicosis, unspecified. Single thyroid nodule. COMPARISON: Thyroid FNA 02/27/2021. (Benign) Thyroid ultrasound 01/30/2021. TECHNIQUE: Linear transducer grayscale and color Doppler examination with attention to the region of the thyroid. FINDINGS: SIZE: Measurements of the thyroid lobes and nodules are given in sagittal, anteroposterior and transverse dimensions respectively. Right Thyroid Lobe: 5.4 x 1.9 x 2.1 cm, volume 11.2 mL. Parenchyma: The gland echotexture is normal. Thyroid vascularity is normal. Left Thyroid Lobe: 4.6 x 1.1 x 1.9 cm, volume 5.1 mL. Parenchyma: The gland echotexture is normal. Thyroid vascularity is normal. Isthmus: 0.3 cm in maximum AP dimension. Estimated total number of nodules greater than or equal to 1 cm: 1. Behavioral Sciences Department Chair nodules are described as follows: 1. Location: Right mid pole. Size: 1.5 x 1.2 x 1.3 cm, volume 1.3 mL. (Previously 1.5 x 1.1 x 1.4 cm, with volume = 1.2 mL). Nodule characteristics: Composition: Solid (2). Echogenicity: Isoechoic (1). Shape: Not taller than wide (0). Margins: Smooth (0). Echogenic Foci: None (0). ACR TI-RADS total points: 3 ACR TI-RADS category: 3 NODES: No lymphadenopathy is seen in the tissue surrounding the thyroid gland. US/US thyroid IMPRESSION: 1. There is a 1.5 cm TR category 3 nodule right mid pole, essentially unchanged. Prior FNA was benign. 2. The remainder of the thyroid gland is normal. US THYROID 01/30/21 CLINICAL INFORMATION: Thyrotoxicosis with diffuse goiter. COMPARISON: Ultrasound thyroid soft tissues neck 12/23/2018 and ultrasound thyroid soft tissues neck 06/26/2017. TECHNIQUE: Linear transducer grayscale and color Doppler examination with attention to the region of the thyroid. FINDINGS: SIZE: Measurements of the thyroid lobes and nodules are given in sagittal, anteroposterior and transverse dimensions respectively. Right Thyroid Lobe: 5.4 x 1.9 x 2.2 cm, volume 11.8 mL. Previously 5.6 x 1.6 x 1.8 cm, volume 8.4 mL. Parenchyma: The gland echotexture is homogeneous. Thyroid vascularity is increased. Left Thyroid Lobe: 4.5 x 1.0 x 1.6 cm, volume 3.8 mL. Previously 4.3 x 1.1 x 1.6 cm, volume 4.0 mL. Parenchyma: The gland echotexture is homogeneous. Thyroid vascularity is increased. Isthmus: 0.3 cm in maximum AP dimension. Previously 0.3 cm. Estimated total number of nodules greater than or equal to 1 cm: 1. Behavioral Sciences Department Chair nodules are described as follows: 1. Location: Right mid. Size: 1.5 x 1.1 x 1.4 cm, volume 1.2 mL. Previously: 1.5 x 0.8 x 1.1 cm, volume 0.70 mL. Nodule characteristics: Composition: Solid/almost completely solid (2). Echogenicity: Hyperechoic (1). Shape: Not taller than wide (0). Margins: Smooth (0). Echogenic Foci: None (0). ACR TI-RADS total points: 3 ACR TI-RADS category: 3 Significant change in size (>/= 20% in 2 dimensions and minimal increase of 2 mm or 50% or greater increase in volume): Yes Change in features: No Change in ACR TI-RADS risk category: No NODES: No lymphadenopathy is seen in the tissue surrounding the thyroid gland. US/US thyroid IMPRESSION: Slightly enlarged right lobe. Interval increase in size in the solitary right nodule from 2017 exam.. US thyroid 12/23/18 Right Thyroid Lobe: 5.6 x 1.6 x 1.8 cm, volume 8.4 mL. Previously 5.1 x 1.2 x 1.5 cm, volume 4.9 mL. Parenchyma: The gland echotexture is homogeneous. Thyroid vascularity is normal. Left Thyroid Lobe: 4.3 x 1.1 x 1.6 cm, volume 4.0 mL. Previously 4.3 x 1.1 x 1.5 cm, volume 3.6 mL. Parenchyma: The gland echotexture is homogeneous. Thyroid vascularity is normal. Isthmus: 0.3 cm in maximum AP dimension. Previously 0.3 cm. RIGHT THYROID LOBE: There is 1 nodule seen. 1. Location: Middle. Size: 1.5 x 0.8 x 1.1 cm. Previous: 0.9 x 0.5 x 0.8 cm. Nodule characteristics: Heterogeneous/complex cystic, smooth margin, no calcification and positive peripheral flow. This is increased in size from June 2017 ultrasound.. ISTHMUS: No nodules. LEFT THYROID LOBE: No nodules. NODES: No lymphadenopathy is seen in the tissue surrounding the thyroid gland. 24 h uptake scan 07/30/17 The uptake is 17.3% at 4 hours and 36.4% at 24 hours. Mildly increased radioiodine uptake with increased trapping function. The gland is slightly enlarged. These findings are consistent with Graves' disease. 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 Chronic idiopathic constipation Sessile serrated polyp of colon Sinusitis ROBBIE (generalized anxiety disorder) Mild recurrent major depression GERD (gastroesophageal reflux disease) Fibromyalgia Obesity, Class I, BMI 30-34.9 Obese Vertigo Tricuspid regurgitation Mitral valve regurgitation Vitamin D deficiency Graves' orbitopathy Uninodular goiter Asthma Graves disease Hyperthyroidism Surgical History History of esophagogastroduodenoscopy (EGD) Hx of colonoscopy History of endometrial ablation H/O ultrasound guided needle biopsy S/P fine needle aspiration Hx of hysterectomy Family History Father CVD (cardiovascular disease) Hypertension Mother CVD (cardiovascular disease) Hypertension Diabetes Son Mental health disorder Social History Household Members: Children Housing: Apartment Alcohol intake: never Patient Tobacco Use Status: Never used Tobacco e-Cigarette/Vaping Use: Never Used Second Hand Smoke Exposure: No Advance Directives Date on File: 05/18/20 service: No Current occupational status: unemployed Cognitive needs: No Hearing needs: No Vision needs: Yes Physical Exam Vital Signs: BMI result Body Mass Index 30.6 Assessment & Plan Assessment & Plan (1) Hyperthyroidism: Code(s): E05.90 - Thyrotoxicosis, unspecified without thyrotoxic crisis or storm Category: Medical Plan: 53-year-old female with past medical history significant for Graves disease and solitary right-sided thyroid nodule. Diagnosed with Graves disease in 2013 in [place], was on methimazole 5 mg daily for the past 10 years. She still has quite a few symptoms, however thyroid function testing has been normal. Currently on methimazole 2.5 daily. I had reduced her dose in July 2024. She is tolerating it well. Reportedly her TSI and trab antibodies have been negative in the past, , she had an uptake and scan in 2016 which showed diffuse increased uptake consistent with Graves disease. At this point she has been on methimazole for the past 10 years, Labs 07/15/2024 showed normal TSH at 01:02, normal free T4 of 0.86, normal total T3 of 113, TSI antibodies undetectable, TSH receptor antibody positive at 5.58, this is consistent with Graves disease. 10/05/2024: TSH 1.22, free T4 0.91, total T3 94, all normal For now I will continue her on the same methimazole 2.5 mg daily. I will see her back in 6 months with repeat labs and we will consider going to 2.5 mg every other day. Given positive TSH receptor antibody I am a little hesitant to take her off methimazole completely, however we will slowly start decreasing the dose. I also discussed with her options of total thyroidectomy. As well as radioactive iodine ablation. Given Graves orbitopathy, though she seems to have mild disease, she might not be an excellent candidate for radioactive iodine ablation. I discussed with her need for levothyroxine after surgery and sometimes after radioactive iodine ablation. Patient at this time we will think more about her options but for now we will continue the same dose of methimazole and wean it slowly in the next few months. If she has remission, well and good, if she relapses, I think I would refer her for total thyroidectomy. She also has a history of solitary right-sided thyroid nodule from 2019 which was biopsied in 2018 with benign cytology. The biopsy was repeated February 2021 due to increased size of the right midpole nodule with a again benign cytology. Ultrasound thyroid from 08/17/2024 showed stable size of the right midpole nodule at 1.5 cm. No need to repeat thyroid ultrasound unless patient has any clinical changes. She also has Graves orbitopathy, she follows with Ophthalmology yearly. She has been having right eye pain. Eye exam showed mild exophthalmos, no lid lag. She has a an appointment at [facility] with Dr. mauri Casas for further evaluation of Graves orbitopathy and whether she needs treatment Plan: -continue methimazole to 2.5 mg daily -follow up with Ophthalmology -ordered TSH, free T4, total T3, TSH receptor antibodies to be done in 6 months prior to follow up (2) Graves disease: Code(s): E05.00 - Thyrotoxicosis with diffuse goiter without thyrotoxic crisis or storm Category: Medical Plan: See above (3) Uninodular goiter: Code(s): E04.1 - Nontoxic single thyroid nodule Category: Medical Plan: See above Plan See above Orders: Orders 2 Free T4 (Free Thyroxine) 6 Months E05.00 - Thyrotoxicosis with diffuse goiter without thyrotoxic crisis or storm, E05.90 - Thyrotoxicosis, unspecified without thyrotoxic crisis or storm Thyrotropin Receptor Antibody 6 Months E05.00 - Thyrotoxicosis with diffuse goiter without thyrotoxic crisis or storm, E05.90 - Thyrotoxicosis, unspecified without thyrotoxic crisis or storm Thyroid Stimulating Hormone 6 Months E05.00 - Thyrotoxicosis with diffuse goiter without thyrotoxic crisis or storm, E05.90 - Thyrotoxicosis, unspecified without thyrotoxic crisis or storm Triiodothyronine T3 Total 6 Months E05.00 - Thyrotoxicosis with diffuse goiter without thyrotoxic crisis or storm, E05.90 - Thyrotoxicosis, unspecified without thyrotoxic crisis or storm Patient Instructions: Continue methimazole 2.5 mg daily See the eye doctor for evaluation of Graves orbitopathy Do blood work in 6 months a week prior to your next appointment in 6 months Coding Level of Care Code Est Pt Level 3 (96723) Diagnoses Hyperthyroidism E05.90 Graves disease E05.00 Uninodular goiter E04.1
== END 2024-10-08 13:34 | disposition home or self-care (01) ==
PROVIDERS: PCP Internal Medicine; Visit Provider Student in an Organized Health Care Education/Training Program
DX: E05.90 Thyrotoxicosis, unspecified without thyrotoxic crisis or storm (principal); E05.00 Thyrotoxicosis with diffuse goiter without thyrotoxic crisis or storm; E04.1 Nontoxic single thyroid nodule
CPT/HCPCS: 99213

== ENCOUNTER → 2024-10-08 13:07 | Outpatient (BNVA) | payer OTHER, SELFPAY | PROVIDERS: PCP Internal Medicine; Visit Provider Student in an Organized Health Care Education/Training Program | DX: E05.00 Thyrotoxicosis with diffuse goiter without thyrotoxic crisis or storm (principal); E04.1 Nontoxic single thyroid nodule | CPT/HCPCS: 99212 ==

== ENCOUNTER 2024-10-13 10:43 | Outpatient (AMB) | payer OTHER, SELFPAY ==
--- NOTE | 2024-10-13 11:00 | A.OFFVIS_ITS ---
Vital Signs 10/13/24 11:05 Height 5 ft Weight 156 lb BMI 30.5 Handedness Left Intake Visit Reasons: New Pt - left knee pain Intake Note: Edson is a 54 year old female who presents today as a new patient for a evaluation of her left knee pain. Hx of a fall about 3 years ago. No Previous treatment. Patient reports off and on pain for about 3 years. She mentions she feels her pain mainly in her patella and it moves to the back of the knee causing her some swelling. Patient notices that her pain is worse when she is walking, standing and bending. She has tried and failed NSAIDs, Tylenol and topical creams. Allergies No Known Allergies Allergy (Verified 10/13/24 11:03) HPI HPI New Pt - left knee pain: Details: Ms. Doug Licona is a 54-year-old female who presents to the office today for evaluation of left knee pain. She denies any injury or trauma to the knee of recent but states that there was a point in time many years ago that she fell landing directly onto the left knee causing pain. She reports that the pain has been present for greater than 2 years' time. She reports that the pain is mostly located along the anterior aspect of the knee. 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 Chronic idiopathic constipation Sessile serrated polyp of colon Sinusitis ROBBIE (generalized anxiety disorder) Mild recurrent major depression GERD (gastroesophageal reflux disease) Fibromyalgia Obesity, Class I, BMI 30-34.9 Obese Vertigo Tricuspid regurgitation Mitral valve regurgitation Vitamin D deficiency Graves' orbitopathy Uninodular goiter Asthma Graves disease Hyperthyroidism Surgical History History of esophagogastroduodenoscopy (EGD) Hx of colonoscopy History of endometrial ablation H/O ultrasound guided needle biopsy S/P fine needle aspiration Hx of hysterectomy Family History Father CVD (cardiovascular disease) Hypertension Mother CVD (cardiovascular disease) Hypertension Diabetes Son Mental health disorder Social History (Updated 10/13/24 @ 11:05 by Dominique Rich) Household Members: Children Housing: Apartment Alcohol intake: current Alcohol intake frequency: holidays/special occasions only Patient Tobacco Use Status: Never used Tobacco e-Cigarette/Vaping Use: Never Used Second Hand Smoke Exposure: No Advance Directives Date on File: 05/18/20 service: No Current occupational status: unemployed Cognitive needs: No Hearing needs: No Vision needs: Yes Review of Systems Const All systems reviewed & are unremarkable except as noted in HPI and below Physical Exam Vital Signs: BMI result Body Mass Index 30.5 Const General: cooperative, healthy appearing and no acute distress Resp Effort & Inspection: normal respiratory effort and able to speak in complete sentences Cardio Rate: regular rate Peripheral pulses: Peripheral pulses 2+ throughout Skin Lesions: no lesions Rashes: no rashes Extrem Other: Left knee: Normal to inspection. No ecchymosis, erythema, or joint effusion. Mild tenderness to palpation along the medial or lateral joint lines. Mild crepitus felt with range of motion. Full knee extension and flexion. Negative Kayla's. NVI. Assessment & Plan Assessment & Plan (1) Patellofemoral arthralgia of left knee: Code(s): M25.562 - Pain in left knee Category: Medical Plan Ms. Doug Licona is a 54-year-old female who presents to the office today for evaluation of left knee pain. She denies any injury or trauma to the knee of recent but states that there was a point in time many years ago that she fell landing directly onto the left knee causing pain. She reports that the pain has been present for greater than 2 years' time. She reports that the pain is mostly located along the anterior aspect of the knee. All the office today, we discussed the role of cortisone injection, knee bracing and physical therapy. Patient would like to defer on a cortisone injection at this time. I did provide her with the gingiva knee brace off the shelf. I have also placed an order for physical therapy. She will get physical therapy and knee bracing 6 weeks to see if her pain improves. If not she will contact our office with the next step would be a cortisone injection. She will follow up after 6 weeks of physical therapy, sooner if needed. X-rays of the left knee which were obtained while in the office today and were reviewed by me, Emiliana Quinn PA-C, revealed no acute fracture dislocation Orders: Orders XR knee RT 1V Today M25.569 - Pain in unspecified knee XR knee LT 3V Today M25.569 - Pain in unspecified knee Coding Level of Care Code New Pt Level 3 (37149) Diagnoses Patellofemoral arthralgia of left knee M25.562
[2024-10-13 11:05] VITALS: BMI 30.5
== END 2024-10-13 11:39 | disposition home or self-care (01) ==
LOC: HO.HOS 10:44
PROVIDERS: PCP Internal Medicine; Visit Provider Physician Assistant
DX: M25.562 Pain in left knee (principal)
CPT/HCPCS: 99203

== ENCOUNTER → 2024-10-13 10:47 | Outpatient (BNV) | payer OTHER, SELFPAY | PROVIDERS: Visit Provider Radiology Diagnostic Radiology | DX: M25.562 Pain in left knee (principal); M25.561 Pain in right knee | CPT/HCPCS: 73560; 73562 ==

== ENCOUNTER 2024-10-13 12:22 | Outpatient (REF) | payer OTHER, SELFPAY ==
--- NOTE | ~2024-10-13 | XR_ITS ---
EXAMINATION: XR KNEE 3 VIEWS LEFT, XR KNEE 1 VIEW RIGHT HISTORY: M25.569 - Pain in unspecified knee COMPARISON: Comparison is made with the prior examination of the left knee dated 02/11/2020. FINDINGS: Standing AP views of the bilateral knees and additional lateral and sunrise patellar views of the left knee are submitted. Osseous mineralization is normal. There is no fracture or dislocation. The joint spaces are preserved. The soft tissues are unremarkable. There is no joint effusion. XR/XR knee RT 1V IMPRESSION: Unremarkable examination of the left knee and standing AP view of the right knee. Electronically signed by: Ivan Bahena MD 10/13/2024 04:00 PM EDT
--- NOTE | ~2024-10-13 | XR_ITS ---
EXAMINATION: XR KNEE 3 VIEWS LEFT, XR KNEE 1 VIEW RIGHT HISTORY: M25.569 - Pain in unspecified knee COMPARISON: Comparison is made with the prior examination of the left knee dated 02/11/2020. FINDINGS: Standing AP views of the bilateral knees and additional lateral and sunrise patellar views of the left knee are submitted. Osseous mineralization is normal. There is no fracture or dislocation. The joint spaces are preserved. The soft tissues are unremarkable. There is no joint effusion. XR/XR knee LT 3V IMPRESSION: Unremarkable examination of the left knee and standing AP view of the right knee. Electronically signed by: Ivan Bahena MD 10/13/2024 04:00 PM EDT
== END 2024-10-13 12:23 | disposition home or self-care (01) ==
LOC: HO.HOSX 12:22
PROVIDERS: Visit Provider Physician Assistant
DX: M25.562 Pain in left knee (principal); M25.561 Pain in right knee
CPT/HCPCS: 73560; 73562; 99202

== ENCOUNTER 2024-10-21 12:47 | Outpatient (AMB) | payer OTHER, SELFPAY ==
[2024-10-21 12:54] VITALS: BP 110/62; PULSE 66; O2SAT 99; BMI 30.1
--- NOTE | 2024-10-21 12:54 | MHC.OFFVIS ---
Vital Signs 10/21/24 12:54 Height 5 ft Weight 154 lb 5.177 oz BMI 30.1 BP 110/62 Blood Pressure Location Lt brachial Position Sitting Pulse 66 Pulse Source Pulse Oximeter Pulse Oximetry (%) 99 Oxygen Delivery Method Room Air Intake Visit Reasons: follow up Intake Note: Patient last seen by Doctor Nina Tolliver on 05/28/24. Presents for follow up. Patient c/o of left knee today. She states it's worse when she's walking, or going up the stairs. Allergies No Known Allergies Allergy (Verified 10/21/24 12:57) Medication List - Last Reconciled 10/21/24 by Nina Tolliver MD albuterol sulfate 90 mcg/actuation (ProAir RespiClick) 2 inhalations inhalation Q6H PRN 30 days albuterol sulfate 2.5 mg (3 mL) inhalation Q6H PRN 30 days blood pressure monitor (Blood Pressure Kit) As directed buspirone 5 mg PO BID cetirizine (Zyrtec) 10 mg PO DAILY PRN cholecalciferol (vitamin D3) 125 mcg PO DAILY 90 days cyclobenzaprine 10 mg PO TID PRN esomeprazole magnesium (Nexium) 40 mg PO DAILY fluticasone propionate 50 mcg/actuation (Flonase Allergy Relief) 2 sprays intranasal DAILY ketotifen fumarate 0.025%(0.035%) (Eye Itch Relief) drps ophthalmic (eye) linaclotide (Linzess) 145 mcg PO DAILY meclizine 25 mg PO DAILY PRN 30 days methimazole 2.5 mg (1/2 x 5 mg) PO DAILY 90 days sucralfate 10 mL PO BEDTIME umeclidinium-vilanterol 62.5-25 mcg/actuation (Anoro Ellipta) 1 inh inhalation DAILY 60 days Ventolin HFA 90 mcg/actuation (albuterol sulfate) 2 puffs inhalation Q6H PRN 30 days NS zolpidem mg PO HPI Comments Details: Patient is a 53-year-old female with recurrent major depression, asthma, Graves disease with hyperthyroidism on methimazole, and fibromyalgia who presents today for follow-up Interval History: Patient last seen 05/28/2024 with me. At that time she continued to have chronic neck pain and total body pain. She had previous imaging done of her C-spine including x-ray and MRI which was essentially normal. There was evidence of trochanteric bursitis at that appointment but she refused injections. Did not want to go to PT because he says it makes the pain worse. At that visit I had a long discussion with the patient and her daughter talking about the diagnosis of fibromyalgia and that light exercise as well as stretches as uses make sure to me most minute resolving management of this disease. Patient stated that she would embark on a new exercise plan as well as stretching. Also recommended a trial of gabapentin to see if this would help her symptoms. Today, Overall feels the same but does note that she is trying to do more exercises and stretches. Did not start the gabapentin because she did not get it at the pharmacy and patient did not reach out to the office to see what happened to the prescription Rheumatologic History: Was seen back in 2019 with multiple complaints. Ultimately diagnosed with fibromyalgia. It has been using tizanidine p.r.n. to help with muscle spasms. Previously on gabapentin 300 mg t.i.d. but unsure of the efficacy as she is not on it currently. 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 Chronic idiopathic constipation Sessile serrated polyp of colon Sinusitis ROBBIE (generalized anxiety disorder) Mild recurrent major depression GERD (gastroesophageal reflux disease) Fibromyalgia Obesity, Class I, BMI 30-34.9 Obese Vertigo Tricuspid regurgitation Mitral valve regurgitation Vitamin D deficiency Graves' orbitopathy Uninodular goiter Asthma Graves disease Hyperthyroidism Surgical History History of esophagogastroduodenoscopy (EGD) Hx of colonoscopy History of endometrial ablation H/O ultrasound guided needle biopsy S/P fine needle aspiration Hx of hysterectomy Family History Father CVD (cardiovascular disease) Hypertension Mother CVD (cardiovascular disease) Hypertension Diabetes Son Mental health disorder Social History (Updated 10/13/24 @ 11:05 by Dominique Rich) Household Members: Children Housing: Apartment Alcohol intake: current Alcohol intake frequency: holidays/special occasions only Patient Tobacco Use Status: Never used Tobacco e-Cigarette/Vaping Use: Never Used Second Hand Smoke Exposure: No Advance Directives Date on File: 05/18/20 service: No Current occupational status: unemployed Cognitive needs: No Hearing needs: No Vision needs: Yes Review of Systems Const Details: Review of Systems Constitutional: Denies fever, chills, weight loss ENT: Denies vision changes, eye pain or eye redness, dental caries, dry mouth GI: Denies nausea, vomiting, diarrhea, abdominal pain, change in BM Pulm: Denies SOB, TEJADA, hemoptysis, wheezing Cards: Denies chest pain, palpitations Skin: Denies Raynaud's, rash, nail changes, photosensitivity, [employer]ACH[employer]ATOR: Denies headaches, weakness, paresthesias, recurrent falls MSK: as per HPI All other systems reviewed and are unremarkable except noted above Physical Exam Vital Signs: Last Vital Signs Pulse 66 10/21/24 12:54 BP 110/62 10/21/24 12:54 Pulse Ox 99 10/21/24 12:54 Oxygen Delivery Method Room Air 10/21/24 12:54 BMI result Body Mass Index 30.1 Vital signs reviewed Physical Examination Patient well appearing and in no apparent painful distress Constitutional Mucous membranes pink and moist patient alert and cooperative HEENT Conjunctiva and sclera clear. ?Pupils equal round and reactive to light. ?No lymphadenopathy. ?Normal dentition. Respiratory System Normal respiratory effort and able to speak in complete sentences. ?Clear to auscultation bilaterally. ?No crackles, rales, rhonchi, wheezes heard. Cardiac System Regular rate and rhythm. ?S1 and S2 heard no murmurs. ?Radial pulses intact bilaterally MSK No deformity, swelling, abnormalities noted to bilateral hands. ?No evidence of synovitis. ?Able to move all joints with full range of motion, without limitation. Hands:.??Normal pain-free range of motion without tenderness, swelling, increased warmth or erythema. Able to make a full fist and has a good personal financial representative strength. Heberden's nodes noted throughout the acquisition Wrists: Normal pain-free range of motion without tenderness, swelling, increased warmth or erythema. Elbows: Full range of motion without pain. No tenderness, weakness, swelling, increased warmth or erythema. Shoulders: Full range of motion without pain. No tenderness, weakness, swelling, increased warmth or erythema. Hips: Full range of motion without pain. Hip bursa:.??No tenderness. Knees:.???Normal pain-free range of motion without tenderness, swelling, increased warmth or erythema.? Crepitations felt bilaterally Ankles:.??Normal pain-free range of motion without tenderness, swelling, increased warmth or erythema. Feet:.??Normal pain-free range of motion without tenderness, swelling, increased warmth or erythema. Tender points:??Tenderness to digital palpation at the occiput, trapezius, second rib, lateral epicondyle, knees, greater trochanter bilaterally, and left gluteal. Results Reviewed Results Reviewed: Laboratory Tests 10/23/22 05/27/24 05/27/24 12:49 10:44 10:45 WBC 10.0 RBC 4.41 Hgb 13.2 Hct 38.7 Plt Count 275 ESR 21 H Sodium 142 Potassium 3.8 Chloride 105 Carbon Dioxide 29 BUN 9 Creatinine 0.64 SI Joint XR 01/09/24 FINDINGS: Degenerative changes in the imaged lower lumbar spine. Pubic symphysis is maintained. Mild degenerative changes on the limited views of the bilateral hips. Rounded pelvic calcifications are likely vascular. Bilateral sacroiliac joints are maintained. Limited visualization of the sacrum/coccyx due to overlying bowel and bony structures Shoulder XR 12/21/22 FINDINGS: Small marginal osteophytes at the glenoid. No joint space narrowing. Minimal acromioclavicular osteoarthritis. Enthesopathic spurring is present at the greater tuberosity. No fracture or malalignment. Soft tissues are unremarkable Assessment & Plan Assessment & Plan (1) Fibromyalgia: Code(s): M79.7 - Fibromyalgia Category: Medical Plan: #Fibromyalgia Patient is a 54-year-old female with fibromyalgia here today for follow up. Has been trying to employ weight-bearing exercises and stretches. Did not start her gabapentin. Her main complaint today is her knee pain which appears to be osteoarthritic nature. She saw Orthopedics who did x-rays which did not show any significant osteoarthritic changes but it is likely she is having some patellofemoral syndrome. Recommended gabapentin as well as starting topical diclofenac. Plan - Gabapentin 100mg nightly - Topical diclofenac 1% qid to knees - RTC 4 months - At that time will eval for steroid injections vs gel injections Plan I spent 22 minutes reviewing the record and labs, seeing the patient, discussing the treatment plan and documenting in the medical record ? Medications: New diclofenac sodium 1% apply to bilateral knees 4 times a day 4 grams topical QID 100 grams 4RF M17.0 - Bilateral primary osteoarthritis of knee gabapentin 100 mg PO BEDTIME 90 caps 1RF M79.7 - Fibromyalgia Coding Level of Care Code Est Pt Level 3 (10751) Diagnoses Fibromyalgia M79.7
== END 2024-10-21 13:25 | disposition home or self-care (01) ==
LOC: HO.RHE 12:48
PROVIDERS: PCP Internal Medicine; Visit Provider Student in an Organized Health Care Education/Training Program
DX: M79.7 Fibromyalgia (principal)
CPT/HCPCS: 99213

== ENCOUNTER → 2024-10-21 12:47 | Outpatient (BNVA) | payer OTHER, SELFPAY | PROVIDERS: PCP Internal Medicine; Visit Provider Student in an Organized Health Care Education/Training Program | DX: M79.7 Fibromyalgia (principal); M17.0 Bilateral primary osteoarthritis of knee | CPT/HCPCS: 99212 ==

== ENCOUNTER 2024-10-29 11:34 | Outpatient (REF) | payer OTHER, SELFPAY ==
[2024-10-29 12:36] LABS: MANUAL DIFF FLAG NO
[2024-10-29 14:16] LABS: Basophils Percent Auto 0.5 % (0-2); Eosinophils Percent Auto 0.4 % (0-4); Hematocrit 40.1 % (37.0-47.0); Hemoglobin 13.4 g/dl (12.0-16.0); Imm Gran Abs Auto 0.04 X10*3/uL (0.00-0.03); Imm Gran Pct Auto 0.5 % (0.0-0.4); Lymphocytes Absolute Auto 2.9 X10*3/uL (1.2-4.9); Lymphocytes Percent Auto 36.8 % (20-40); Mean Corpuscular HGB Conc 33.4 g/dl (31.0-35.0); Mean Corpuscular Hemoglobin 29.5 pg (27.0-33.0); Mean Corpuscular Volume 88.3 fL (80.0-98.0); Mean Platelet Volume 9.7 fL (9.4-12.3); Monocytes Percent Auto 11.9 % (2-11); Neutrophils Percent Auto 49.9 % (45-73); Platelet Count 251 X10*3/uL (160-400); Red Blood Count 4.54 X10*6/uL (4.20-5.50); Red Cell Distribution Width 12.2 % (11.0-16.0)
[2024-10-29 14:47] LABS: Alanine Aminotransferase 23 U/L (0-31); Albumin Level 4.9 g/dL (3.5-5.0); Alkaline Phosphatase 89 U/L (39-117); Anion Gap 12 (12-20); Aspartate Amino Transferase 27 U/L (5-31); Bilirubin Total 0.3 mg/dL (0.0-1.0); Blood Urea Nitrogen 10 mg/dL (9-16); Calcium 10.1 mg/dL (8.4-10.2); Carbon Dioxide 29 mmol/L (22-29); Chloride 103 mmol/L (96-108); Estimated Glomerular Filt Rate > 60; Glucose Random 79 mg/dL (60-115); Potassium 4.2 mmol/L (3.3-5.1); Sodium 140 mmol/L (135-145); Total Protein 8.3 g/dL (6.5-8.0)
== END 2024-10-29 11:35 | disposition home or self-care (01) ==
LOC: HO.LAB 11:34
PROVIDERS: PCP Internal Medicine; Visit Provider Physician Assistant Medical
DX: Z09 Encounter for follow-up examination after completed treatment for conditions other than malignant neoplasm (principal); N76.4 Abscess of vulva; Z00.00 Encounter for general adult medical examination without abnormal findings
CPT/HCPCS: 36415; 80053; 85025; 96127; 99212

== ENCOUNTER 2024-10-29 11:34 | Outpatient (AMB) | payer OTHER, SELFPAY ==
[2024-10-29 11:44] VITALS: BP 122/84; PULSE 66; TEMP 36.3; O2SAT 99; BMI 30.3
--- NOTE | 2024-10-29 11:44 | MHC.PC.OV ---
Vital Signs 10/29/24 11:44 Height 5 ft Weight 155 lb 2 oz BMI 30.3 BP 122/84 Blood Pressure Location Lt brachial Position Sitting Pulse 66 Pulse Source Pulse Oximeter Temp 97.3 F Temp Source Temporal Artery Scan Pulse Oximetry (%) 99 Oxygen Delivery Method Room Air Intake Visit Reasons: cyst around the outer lips daisy Neuroradiologist Required: No Accompanied by: Self / Same As Patient Allergies No Known Allergies Allergy (Verified 10/29/24 12:18) Medication List - Last Reconciled 10/29/24 by Rosy Stephens PA-C albuterol sulfate 90 mcg/actuation (ProAir RespiClick) 2 inhalations inhalation Q6H PRN 30 days albuterol sulfate 2.5 mg (3 mL) inhalation Q6H PRN 30 days blood pressure monitor (Blood Pressure Kit) As directed buspirone 5 mg PO BID cetirizine (Zyrtec) 10 mg PO DAILY PRN cholecalciferol (vitamin D3) 125 mcg PO DAILY 90 days cyclobenzaprine 10 mg PO TID PRN diclofenac sodium 1% 4 grams topical QID esomeprazole magnesium (Nexium) 40 mg PO DAILY fluticasone propionate 50 mcg/actuation (Flonase Allergy Relief) 2 sprays intranasal DAILY gabapentin 100 mg PO BEDTIME ketotifen fumarate 0.025%(0.035%) (Eye Itch Relief) drps ophthalmic (eye) linaclotide (Linzess) 145 mcg PO DAILY meclizine 25 mg PO DAILY PRN 30 days methimazole 2.5 mg (1/2 x 5 mg) PO DAILY 90 days sucralfate 10 mL PO BEDTIME sulfamethoxazole-trimethoprim 800-160 mg (Bactrim DS) 1 tab PO BID 10 days umeclidinium-vilanterol 62.5-25 mcg/actuation (Anoro Ellipta) 1 inh inhalation DAILY 60 days Ventolin HFA 90 mcg/actuation (albuterol sulfate) 2 puffs inhalation Q6H PRN 30 days NS zolpidem mg PO Tobacco use date assessed: 10/29/24 Dental Screening Dental Screen Date: 10/29/24 Did you have a dental visit in the last 12 months?: Yes Did you have a dental problem in the last 6 months where you did not have access to dental care?: No Was dental information given to patient?: Patient has dentist [facility] Medical History Encounter for recheck of abscess following incision and drainage Vulvar abscess Bilateral hip bursitis 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 Chronic idiopathic constipation Sessile serrated polyp of colon Sinusitis ROBBIE (generalized anxiety disorder) Mild recurrent major depression GERD (gastroesophageal reflux disease) Fibromyalgia Obesity, Class I, BMI 30-34.9 Obese Vertigo Tricuspid regurgitation Mitral valve regurgitation Vitamin D deficiency Graves' orbitopathy Uninodular goiter Asthma Graves disease Hyperthyroidism Surgical History History of esophagogastroduodenoscopy (EGD) Hx of colonoscopy History of endometrial ablation H/O ultrasound guided needle biopsy S/P fine needle aspiration Hx of hysterectomy Family History Father CVD (cardiovascular disease) Hypertension Mother CVD (cardiovascular disease) Hypertension Diabetes Son Mental health disorder Social History Household Members: Children Housing: Apartment Alcohol intake: current Alcohol intake frequency: holidays/special occasions only Patient Tobacco Use Status: Never used Tobacco e-Cigarette/Vaping Use: Never Used Second Hand Smoke Exposure: No Advance Directives Date on File: 05/18/20 service: No Current occupational status: unemployed Cognitive needs: No Hearing needs: No Vision needs: Yes Questionnaire PHQ-9 Over the last 2 weeks, how often have you been bothered by any of the following problems? 1. Little interest or pleasure in doing things: not at all 2. Feeling down, depressed, or hopeless: not at all 3. Trouble falling or staying asleep, or sleeping too much: not at all 4. Feeling tired or having little energy: not at all 5. Poor appetite or overeating: not at all 6. Feeling bad about yourself - or that you are a failure or have let yourself or your family down: not at all 7. Trouble concentrating on things, such as reading the newspaper or watching television: not at all 8. Moving or speaking so slowly that other people could have noticed. Or the opposite - being so fidgety or restless that you have been moving around a lot more than usual: not at all 9. Thoughts that you would be better off or of hurting yourself in some way: not at all Total score: 0 Depression Screening Interpretation: Negative Depression Screening Done: Yes 84086 - PHQ-9 Billing: Yes Source: Developed by Drs. Ivan Zapata, Elvira Hernandez, Dimitri Alfred and colleagues, with an educational valdo from [employer]. Thrive Questionnaire Date Thrive assessed: 10/29/24 I am a: Patient What is your living situation today?: I have a steady place to live Within the past 12 months, did the food you bought not last and you didn't have the money to get more?: Never true Within the past 12 months, did you worry whether your food would run out before you got money to buy more?: Never true Do you have trouble paying for medicines?: No Do you have trouble getting transportation to medical appointments?: No Do you have trouble paying your heating and electricity bill?: No Do you have trouble taking care of your child, family member or friend?: No Do you have trouble with day-to-day activities such as bathing, preparing meals, shopping, managing finances, etc.?: No Are you currently unemployed and looking for a job?: No Are you interested in more education?: No Please select the resources that you would like help with: None Currently or been in a relationship where the following occur: No concerns reported THRIVE Score: 0 AUDIT C Alcohol Use Questionnaire (AUDIT-C) 1. How often do you have a drink containing alcohol?: Monthly or less 2. How many drinks containing alcohol do you have on a typical day when you are drinking?: 1 or 2 3. How often do you have six or more drinks on one occasion?: Never Total Score: 1 Score Reviewed/Action Taken: No ROBBIE-7 AMB Questionnaire ROBBIE-7 Date ROBBIE - 7 assessed: 10/29/24 Feeling nervous, anxious, or on edge: 0 = Not at all Not being able to stop or control worryin = Not at all Worrying too much about different things: 0 = Not at all Trouble relaxin = Not at all Being so restless that it is hard to sit still: 0 = Not at all Becoming easily annoyed or irritable: 0 = Not at all Feeling afraid as if something awful might happen: 0 = Not at all Total ROBBIE-7 score (0-4 normal; 5-9 mild; 10-14 moderate; 15-21 severe): 0 Source: Developed by Drs. Ivan Zapata, Elvira Hernandez, Dimitri Alfred and colleagues, with an educational valdo from [employer]. ROBBIE-7 Assessment Billing ROBBIE-7 Assessment Tool: ROBBIE-7 Assessment 54591 Physical exam (Primary Care) Vital Signs: Last Vital Signs Temp 97.3 F 10/29/24 11:44 Pulse 66 10/29/24 11:44 BP 122/84 10/29/24 11:44 Pulse Ox 99 10/29/24 11:44 Oxygen Delivery Method Room Air 10/29/24 11:44 BMI result Body Mass Index 30.3 Tobacco/Smoking Status: Tobacco use Status Tobacco use date assessed 10/29/24 10/29/24 11:58 Patient Tobacco Use Status Never used Tobacco 10/29/24 11:44 e-Cigarette/Vaping Use Never Used 10/29/24 11:44 PHQ-9: PHQ-9 Score PHQ-9: Total score 0 10/29/24 11:58 Depression Screening Interpretation: Negative Thrive Assessment: Date of Thrive Assessment Date Thrive assessed 10/29/24 10/29/24 11:58 Currently or been in a relationship where the following occur: No concerns reported Coding Level of Care Code Est Pt Level 3 (63178) Diagnoses Vulvar abscess N76.4 Encounter for recheck of abscess following incision and drainage Z09 Additional Codes ROBBIE-7 Assessment Billing - ROBBIE-7 Assessment Tool: ROBBIE-7 Assessment [id number] ([id number]) PHQ-9 - 17473 - PHQ-9 Billing: Yes ([id number]) Assessment & Plan Assessment & Plan (1) Vulvar abscess: Code(s): N76.4 - Abscess of vulva Category: Medical Plan: s/p I&D. improved. no signs of acute infection. BUY BOAT OPERATOR referral placed. (2) Encounter for recheck of abscess following incision and drainage: Code(s): Z09 - Encounter for follow-up examination after completed treatment for conditions other than malignant neoplasm Category: Medical Plan: continue bactrim. assess kidney function levels if normal continue bactrim. Plan Plan Patient was informed and verbally consented to the use of an ambient scribe for clinic note documentation during this visit. 1. Abscess of vulva The patient will maintain her current course of Bactrim as prescribed and apply warm compresses consistently. A referral to a materials research engineer has been arranged for further evaluation and management of the vulvar abscess. Further laboratory testing to evaluate kidney function has been recommended to avoid complications due to the antibiotic treatment, with instructions for the patient to seek care if indicators of renal issues arise. Discussion Notes I discussed with the patient the ongoing management of her vulvar abscess, highlighting the need to continue her current antibiotic treatment, Bactrim, as prescribed for the full duration to ensure effective resolution. Risks associated with her antibiotic including potential kidney impairment were explained. The patient understood the importance of monitoring for any adverse effects and was advised to have laboratory tests performed to assess her kidney function. I also discussed the procedure of applying warm compresses to aid in drainage. The recommendation to see a materials research engineer for further evaluation was made, and the referral process was initiated. Orders: Orders Complete Blood Count Auto Diff Today Z00.00 - Encounter for general adult medical examination without abnormal findings Comprehensive Met. Panel Today Z00.00 - Encounter for general adult medical examination without abnormal findings Referrals WEAVE DEFECT CHARTING CLERK Referral N76.4 - Abscess of vulva, Z09 - Encounter for follow-up examination after completed treatment for conditions other than malignant neoplasm Patient Instructions: Patient Instructions - Continue taking Bactrim as prescribed. - Apply warm compresses to the affected area two to three times daily for 15 minutes each to encourage drainage. - Attend referred appointment with a materials research engineer for further assessment. - Have blood tests as recommended to monitor kidney function. - Report any new symptoms or worsening condition to the healthcare provider promptly. - Follow up with primary care physician or urgent care if needed before materials research engineer visit. Scribe Plan - Not visible on output: History of Present Illness The patient is a 54-year-old female presenting with a vulvar abscess. This condition was initially identified when the patient sought care at an urgent care facility in [place] on October 24. During that visit, she was diagnosed with an abscess of the vulva and prescribed Bactrim, an antibiotic, to be taken one tablet twice a day for seven days. The patient reports an improvement in her condition since starting the antibiotic therapy, with a decrease in symptoms. She noted that the abscess had previously partially drained but not completely. The patient described a history of what might have been a birthmark or a similar lesion in the area since youth. Recently, she noticed an increase in size and discomfort, prompting her to seek medical attention. There is no current discharge, and she has noted the presence of blood from the area, albeit she is under the impression that it is healing. Review of Systems - Genitourinary: Reports improvement in the condition of the vulvar abscess. Physical Exam Appearance: Alert. Oriented X3. No acute distress. Head: Normal external exam. Normocephalic. Atraumatic. Eyes: Pupils are equal, round, and reactive to light. Extraocular movements intact. Conjunctiva and sclera normal. Eyelids normal. Throat: Pharynx normal. Uvula midline. Moist mucous membranes. Neck: Normal inspection. Neck supple. Full range of motion. Cardiovascular: Normal heart rate and rhythm. Respiratory: No respiratory distress. Painless inspiration. :Right vulva abscess improved. Wound is opening no drainage. No streaking, purulent drainage or signs of acute infection or FB's. Back: Full range of motion noted. Skin: Skin warm and dry. Normal skin color. Normal skin turgor. Extremities: Extremities exhibit normal range of motion. Neuro: Oriented X 3. No motor deficit. No sensory deficit. Reflexes normal.
== END 2024-10-29 12:28 | disposition home or self-care (01) ==
LOC: HO.HMCH 11:35
PROVIDERS: PCP Internal Medicine; Visit Provider Physician Assistant Medical
DX: N76.4 Abscess of vulva (principal); Z09 Encounter for follow-up examination after completed treatment for conditions other than malignant neoplasm

== ENCOUNTER 2024-11-10 12:46 | Outpatient (AMB) | payer OTHER, SELFPAY ==
--- NOTE | 2024-11-10 13:22 | A.OFFVIS_ITS ---
Vital Signs 11/10/24 13:29 Height 5 ft Weight 155 lb BMI 30.3 Intake Visit Reasons: Abscess of vulva/in patient referral Professor Of Religious Studies Required: Yes Professor Of Religious Studies Language: Formulator Compounder Services: Professor Of Religious Studies Present (in person) Professor Of Religious Studies Name: Elizabeth HURT Information Interpreted: non-clinical & clinical Sustainability Executive Director: Sustainability Executive Director Present (Elizabeth HURT) Accompanied by: Self / Same As Patient Allergies No Known Allergies Allergy (Verified 11/10/24 13:31) Is last menstrual period known: No (Hysterectomy) Post menopausal: Yes HPI Comments Details: Presenting referred from urgent Care regarding labial abscess the patient had perineal bumps over the last years nontender and nonpainful, no discharge or any other concerns [facility] Medical History Encounter for recheck of abscess following incision and drainage Vulvar abscess Bilateral hip bursitis 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 Chronic idiopathic constipation Sessile serrated polyp of colon Sinusitis ROBBIE (generalized anxiety disorder) Mild recurrent major depression GERD (gastroesophageal reflux disease) Fibromyalgia Obesity, Class I, BMI 30-34.9 Obese Vertigo Tricuspid regurgitation Mitral valve regurgitation Vitamin D deficiency Graves' orbitopathy Uninodular goiter Asthma Graves disease Hyperthyroidism Surgical History History of esophagogastroduodenoscopy (EGD) Hx of colonoscopy History of endometrial ablation H/O ultrasound guided needle biopsy S/P fine needle aspiration Hx of hysterectomy Family History Father CVD (cardiovascular disease) Hypertension Mother CVD (cardiovascular disease) Hypertension Diabetes Son Mental health disorder Social History Household Members: Children Housing: Apartment Alcohol intake: current Alcohol intake frequency: holidays/special occasions only Patient Tobacco Use Status: Never used Tobacco e-Cigarette/Vaping Use: Never Used Second Hand Smoke Exposure: No Advance Directives Date on File: 05/18/20 service: No Current occupational status: unemployed Cognitive needs: No Hearing needs: No Vision needs: Yes Female Reproductive History Menstrual Menopause type: surgical Review of Systems Const All systems reviewed & are unremarkable except as noted in HPI and below Card Reports as per HPI and Reports no additional complaints Resp Reports as per HPI and Reports no additional complaints GI Reports as per HPI and Reports no additional complaints Reports as per HPI Physical Exam Vital Signs: BMI result Body Mass Index 30.3 Const General: cooperative, healthy appearing and comfortable General: Yes bladder normal to palpation External Female Exam: lesion (Multiple small bilateral sebaceous cysts) Speculum Exam - Vagina: normal appearance of the vagina, normal vaginal discharge and not erythematous Speculum Exam - Cervix: Cervix absent Bimanual exam- vagina & uterus: bladder normal to palpation and uterus absent Bimanual Exam- Adnexa, other: Other (No masses detected) Assessment & Plan Assessment & Plan (1) Sebaceous cyst of labia: Code(s): N90.7 - Vulvar cyst Category: Medical Plan: Discussed with the patient the finding on pelvic exam showing bilateral sebaceous cyst, instructions given the patient to call in case of sebaceous cyst enlargement, tenderness or discharge or redness. All questions answered, the patient verbalized understanding and agreed with the plan. Coding Level of Care Code New Pt Level 3 (00800) Diagnoses Sebaceous cyst of labia N90.7
[2024-11-10 13:29] VITALS: BMI 30.3
== END 2024-11-10 14:01 | disposition home or self-care (01) ==
LOC: HO.HWS 12:46
PROVIDERS: PCP Internal Medicine; Visit Provider Obstetrics & Gynecology
DX: N90.7 Vulvar cyst (principal)
CPT/HCPCS: 99203

== ENCOUNTER → 2024-11-10 12:46 | Outpatient (BNVA) | payer OTHER, SELFPAY | PROVIDERS: PCP Internal Medicine; Visit Provider Obstetrics & Gynecology | DX: N90.7 Vulvar cyst (principal) | CPT/HCPCS: 99202 ==

== ENCOUNTER 2025-01-14 09:58 | Outpatient (AMB) | payer MEDICAID, SELFPAY ==
--- NOTE | 2025-01-14 10:30 | A.OFFPC_ITS ---
Vital Signs 01/14/25 10:31 Height 5 ft Weight 150 lb BMI 29.3 BP 122/80 Blood Pressure Location Lt brachial Position Sitting Intake Visit Reasons: Annual Exam Intake Note: Patient here for an annual physical exam Mangle Tender Required: No Accompanied by: Self / Same As Patient Allergies No Known Allergies Allergy (Verified 01/14/25 11:00) Medication List - Last Reconciled 01/14/25 by Melissa Coates MD albuterol sulfate 90 mcg/actuation (ProAir RespiClick) 2 inhalations inhalation Q6H PRN 30 days albuterol sulfate 2.5 mg (3 mL) inhalation Q6H PRN 30 days blood pressure monitor (Blood Pressure Kit) As directed buspirone 5 mg PO BID cetirizine (Zyrtec) 10 mg PO DAILY PRN cholecalciferol (vitamin D3) 125 mcg PO DAILY 90 days cyclobenzaprine 10 mg PO TID PRN diclofenac sodium 1% 4 grams topical QID esomeprazole magnesium 40 mg PO DAILY fluticasone propionate 50 mcg/actuation (Flonase Allergy Relief) 2 sprays intranasal DAILY gabapentin 100 mg PO BEDTIME ketotifen fumarate 0.025%(0.035%) (Eye Itch Relief) drps ophthalmic (eye) linaclotide (Linzess) 145 mcg PO DAILY meclizine 25 mg PO DAILY PRN 30 days methimazole 2.5 mg (1/2 x 5 mg) PO DAILY 90 days sucralfate 10 mL PO BEDTIME umeclidinium-vilanterol 62.5-25 mcg/actuation (Anoro Ellipta) 1 inh inhalation DAILY 60 days Ventolin HFA 90 mcg/actuation (albuterol sulfate) 2 puffs inhalation Q6H PRN 30 days NS zolpidem mg PO Tobacco use date assessed: 10/29/24 Dental Screening Dental Screen Date: 10/29/24 HPI HPI Comments History of Present Illness0 Details The patient is a 54-year-old female presenting for an annual physical examination. She has a history of anxiety managed with buspirone and uses a rescue inhaler for asthma. Additionally, she takes gabapentin at night. The patient manages allergic rhinitis with cetirizine and nasal spray, and gastroesophageal reflux disease with esomeprazole and sucralfate. She reports constipation treated with linaclotide and vertigo managed with meclizine. Her Graves' disease is controlled with methimazole. Insomnia is managed with zolpidem, and her surgical history includes endometrial ablation and thyroid biopsies. Family history includes cardiovascular disease and hypertension in her father, and diabetes, hypertension, and cardiovascular disease in her mother. She denies smoking and reports occasional alcohol consumption, which has decreased over time. 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 Chronic idiopathic constipation Sessile serrated polyp of colon Sinusitis ROBBIE (generalized anxiety disorder) Mild recurrent major depression GERD (gastroesophageal reflux disease) Fibromyalgia Obesity, Class I, BMI 30-34.9 Obese Vertigo Tricuspid regurgitation Mitral valve regurgitation Vitamin D deficiency Graves' orbitopathy Uninodular goiter Asthma Graves disease Hyperthyroidism Surgical History History of esophagogastroduodenoscopy (EGD) Hx of colonoscopy History of endometrial ablation H/O ultrasound guided needle biopsy S/P fine needle aspiration Hx of hysterectomy Family History Father CVD (cardiovascular disease) Hypertension Mother CVD (cardiovascular disease) Hypertension Diabetes Son Mental health disorder Social History Household Members: Children Housing: Apartment Alcohol intake: current Alcohol intake frequency: holidays/special occasions only Patient Tobacco Use Status: Never used Tobacco e-Cigarette/Vaping Use: Never Used Second Hand Smoke Exposure: No Advance Directives Date on File: 05/18/20 service: No Current occupational status: unemployed Cognitive needs: No Hearing needs: No Vision needs: Yes Questionnaire PHQ-9 Over the last 2 weeks, how often have you been bothered by any of the following problems? 1. Little interest or pleasure in doing things: several days 2. Feeling down, depressed, or hopeless: several days 3. Trouble falling or staying asleep, or sleeping too much: more than half the days 4. Feeling tired or having little energy: several days 5. Poor appetite or overeating: several days 6. Feeling bad about yourself - or that you are a failure or have let yourself or your family down: not at all 7. Trouble concentrating on things, such as reading the newspaper or watching television: several days 8. Moving or speaking so slowly that other people could have noticed. Or the opposite - being so fidgety or restless that you have been moving around a lot more than usual: not at all 9. Thoughts that you would be better off or of hurting yourself in some way: not at all Total score: 7 Depression Screening Interpretation: Positive Depression Screening Follow-up: Existing condition and Follow-up Visit Requested Depression Screening Done: Yes 35417 - PHQ-9 Billing: Yes Source: Developed by Drs. Ivan Zapata, Elvira Hernandez, Dimitri Alfred and colleagues, with an educational valdo from [employer]. Thrive Questionnaire Date Thrive assessed: 01/11/25 I am a: Patient What is your living situation today?: I have a steady place to live Within the past 12 months, did the food you bought not last and you didn't have the money to get more?: Sometimes True Within the past 12 months, did you worry whether your food would run out before you got money to buy more?: Sometimes True Do you have trouble paying for medicines?: No Do you have trouble getting transportation to medical appointments?: No Do you have trouble paying your heating and electricity bill?: No Do you have trouble taking care of your child, family member or friend?: No Do you have trouble with day-to-day activities such as bathing, preparing meals, shopping, managing finances, etc.?: No Are you currently unemployed and looking for a job?: No Are you interested in more education?: No Please select the resources that you would like help with: Transportation Currently or been in a relationship where the following occur: No concerns reported THRIVE Score: 2 AUDIT C Alcohol Use Questionnaire (AUDIT-C) 1. How often do you have a drink containing alcohol?: Monthly or less 2. How many drinks containing alcohol do you have on a typical day when you are drinking?: 1 or 2 3. How often do you have six or more drinks on one occasion?: Never Total Score: 1 Score Reviewed/Action Taken: No ROBBIE-7 AMB Questionnaire ROBBIE-7 Date ROBBIE - 7 assessed: 01/14/25 Feeling nervous, anxious, or on edge: 2 = More than half the days Not being able to stop or control worryin = Several days Worrying too much about different things: 1 = Several days Trouble relaxin = More than half the days Being so restless that it is hard to sit still: 1 = Several days Becoming easily annoyed or irritable: 2 = More than half the days Feeling afraid as if something awful might happen: 0 = Not at all Total ROBBIE-7 score (0-4 normal; 5-9 mild; 10-14 moderate; 15-21 severe): 9 Source: Developed by Drs. Ivan Zapata, Elvira Hernandez, Dimitri Alfred and colleagues, with an educational valdo from [employer]. ROBBIE-7 Assessment Billing ROBBIE-7 Assessment Tool: ROBBIE-7 Assessment 64844 Review of Systems Const All systems reviewed & are unremarkable except as noted in HPI and below Card Denies chest pain at rest, Denies chest pain with activity, Denies edema, Denies irregular heart rhythm, Denies claudication, Denies dyspnea, Denies dyspnea on exertion, Denies orthopnea, Denies paroxysmal nocturnal dyspnea and Denies slow heart rate Resp Denies cough, Denies dyspnea and Denies dyspnea on exertion GI Denies abdominal pain, Denies change in bowel habits, Denies excessive flatus, Denies nausea and Denies vomiting Denies urinary incontinence, Denies urinary hesitancy and Denies urinary urgency Neuro Denies behavioral changes, Denies confusion and Denies lack of coordination Psych Denies behavioral changes and Denies confusion Physical exam (Primary Care) Vital Signs: Last Vital Signs BP 122/80 01/14/25 10:31 BMI result Body Mass Index 29.3 Tobacco/Smoking Status: Tobacco use Status Tobacco use date assessed 10/29/24 01/14/25 10:36 Patient Tobacco Use Status Never used Tobacco 01/14/25 10:36 e-Cigarette/Vaping Use Never Used 01/14/25 10:36 PHQ-9: PHQ-9 Score PHQ-9: Total score 7 01/14/25 11:04 Depression Screening Interpretation: Positive Depression Screening Follow-up: Existing condition and Follow-up Visit Requested Thrive Assessment: Date of Thrive Assessment Date Thrive assessed 01/11/25 01/14/25 10:36 Currently or been in a relationship where the following occur: No concerns reported Const General: No confusion Orientation/consciousness: patient oriented x3 and No confusion HENMT Head: Yes normal to inspection, Yes normocephalic and Yes atraumatic Ears: external ears normal Eyes General: appearance normal, both eyes and all related structures Eyelids: Yes eyelids normal Conjunctivae: conjunctivae normal Neck Neck: Yes normal visual inspection and Yes supple Resp Effort & Inspection: normal respiratory effort Auscultation: clear to auscultation bilaterally Cardio Jugular venous distension: no JVD Rate: regular rate Rhythm: regular rhythm Heart sounds: S1 normal heart sound present and S2 normal heart sound present GI Inspection: Yes normal to inspection Palpation (GI): Soft to palpation and nontender Auscultation: normal bowel sounds Skin General skin exam: no rashes or lesions noted Neuro General: patient oriented x3, no focal motor deficits and No confusion Extrem General: Yes full ROM Psych Appearance: grossly normal Coding Level of Care Code Est Pt Level 3 (95152) Est Pt Prev Care 40-64y(76641) Diagnoses Physical exam Z00.00 Sacral pain M53.3 Mild recurrent major depression F33.0 Additional Codes ROBBIE-7 Assessment Billing - ROBBIE-7 Assessment Tool: ROBBIE-7 Assessment 18148 ([id number]) PHQ-9 - 85045 - PHQ-9 Billing: Yes ([id number]) Time Spent (min) 33 Assessment & Plan Assessment & Plan (1) Physical exam: Code(s): Z00.00 - Encounter for general adult medical examination without abnormal findings Category: Medical (2) Sacral pain: Code(s): M53.3 - Sacrococcygeal disorders, not elsewhere classified Category: Medical (3) Mild recurrent major depression: Code(s): F33.0 - Major depressive disorder, recurrent, mild Category: Medical Plan The patient will continue her current medications for anxiety, asthma, allergic rhinitis, gastroesophageal reflux disease, constipation, vertigo, Graves' disease, and insomnia. A cholesterol screening is recommended to assess lipid levels, given the family history of cardiovascular disease. The patient is advised to maintain her current lifestyle modifications, including reduced alcohol consumption. Follow-up appointments are scheduled for further evaluation of thyroid health and to monitor any changes in her condition. Patient was informed and verbally consented to the use of an ambient scribe for clinic note documentation during this visit. Orders: Orders Vitamin D 25-OH Total Today E55.9 - Vitamin D deficiency, unspecified Comprehensive [place]. Panel Fast Today Z00.00 - Encounter for general adult med ical examination without abnormal findings Lipid Panel Today Z00.00 - Encounter for general adult medical examination without abnormal findings Medications: New celecoxib (Celebrex) 200 mg (2 x 100 mg) PO BID PRN 60 caps 0RF pain 30 days
[2025-01-14 10:31] VITALS: BP 122/80; BMI 29.3
--- OUTSIDE RECORDS SUMMARY | 2025-01-14 11:14 | XMS_ITS | Patient Health Record ---
Author Organization [facility] [place] Address [address] [place], [place] [id number] Care Team Providers Care Cobbler Mckay Name Role Phone Zelda Gonzalez Primary Care Provider Kulwant Murphy Unavailable [phone] Reason For Referral No Information Medications Medication SIG (Take, Route, Frequency, Duration) Notes Start Date End Date Status Gas-X Extra Strength 125 MG 1 tablet as needed Orally Twice a day Active valACYclovir HCl 500 MG 1 tablets Orally Once a day for 10 day(s) Active Hyoscyamine Sulfate 0.125 MG 1 tablet before meals as needed Orally Four times a day Active Mirtazapine 15 MG 1 tablet on the tong ue and allow to dissolve before bedtime in the evening Orally Once a day for 30 day(s) Active ProAir HFA 108 (90 Base) MCG/ACT 2 puffs as needed Inhalation every 4 hrs Active Flovent HFA 44 MCG/ACT 2 puff Inhalation Twice a day Active Omeprazole 20 MG 1 capsule Orally Twi ce a day for 30 day(s) Active Vitamin D 1000 UNIT 1 tablet Orally Once a day for 30 day(s) Active Singulair 10 MG 1 tablet in the even ing Orally Once a day Active Problems Problem Type SNOMED Code ICD Code Onset Dates Problem Status W/U Status Risk Notes Problem Asthma (380658778) Asthma (493.90) Active confirmed Plan Of Treatment Pending Test Test Name Order Date PFT: Methacholine challenge with FeNO measurement (fractional exhaled nitric oxide ) 05/14/2013 SLEEP STUDY-SPLIT 05/14/2013 Insurance Providers Payer Name Payer Address Payer Phone Subscriber Number Group Number Insured Name Patient Relationship to Insured Coverage Start Date Coverage End Date karissa [facility] [address] [address] [place] [address] [id number] Edson Camacho Self - patient is the insured Medical (General) History Medical History History ICD Code Asthma Chronic Sinusitis Fatigue Surgical History Surgery Date(Month/Year) Hysterectomy 2007
== END 2025-01-14 11:11 | disposition home or self-care (01) ==
LOC: HO.HMCH 09:58
PROVIDERS: PCP Internal Medicine; Visit Provider Internal Medicine
DX: Z00.00 Encounter for general adult medical examination without abnormal findings (principal); M53.3 Sacrococcygeal disorders, not elsewhere classified; F33.0 Major depressive disorder, recurrent, mild

== ENCOUNTER → 2025-01-14 09:58 | Outpatient (BNVA) | payer MEDICAID, SELFPAY | PROVIDERS: PCP Internal Medicine; Visit Provider Internal Medicine | DX: Z00.00 Encounter for general adult medical examination without abnormal findings (principal); F41.9 Anxiety disorder, unspecified; J45.909 Unspecified asthma, uncomplicated; R42 Dizziness and giddiness; G47.00 Insomnia, unspecified; M53.3 Sacrococcygeal disorders, not elsewhere classified; F33.0 Major depressive disorder, recurrent, mild; E55.9 Vitamin D deficiency, unspecified; Z79.899 Other long term (current) drug therapy | CPT/HCPCS: 96127; 99212; 99396 ==

== ENCOUNTER 2025-03-22 10:02 | Outpatient (AMB) | payer MEDICAID, SELFPAY ==
--- NOTE | 2025-03-22 10:10 | A.OFFVIS_ITS ---
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 Patient no longer has sucralfate at home. We will send a script pharmacy. Slow patient would avoid eating late at night. Staying upright for minimum 3 hours after meals discussed with her. Patient will start taking Linzess every day. Patient reports that Linzess helps when she takes it. Increase fluid intake and activity to promote better bowel motility. Patient will follow-up in our office in 6 months, sooner on as needed basis. Patient is agreeable to this plan and verbalizes understanding of instructions. She was given the opportunity to ask questions and all questions answered. ? Thank you for allowing me participate in her care New sucralfate 10 mL PO BEDTIME 400 mL 2RF K21.9 Changed Changed From cholecalciferol (vitamin D3) 125 mcg PO DAILY 30 days 30 caps 6RF E55.9 Changed To cholecalciferol (vitamin D3) 125 mcg PO DAILY 90 caps 3RF 90 days E55.9 Refilled linaclotide (Linzess) 145 mcg PO DAILY 90 caps 3RF K59.04 TODAY'S VISIT Patient is here today for follow-up. Patient reports acid reflux suppressed with Nexium. Occasional epigastric pain and left upper quadrant pain. Patient reports that pain left upper quadrant is not related to meals. She takes Linzess every day, however she feels like she does not empty her bowels completely. Patient reports that she does drink fluids. Reports occasional abdominal bloating depending on what she needs. Patient denies dyspepsia, dysphagia or odynophagia. One episode 2 weeks ago of blood after bowel movemen t. Patient does not remember if she was straining or not. Patient had colonoscopy in 2022 and recommendation was for 5 years follow-up due to sessile serrated polyp. Patient denies any nausea or vomiting. Denies melena, unintentional weight loss or ribbon like stools. No more episodes of blood in her stool except for that 1 time [facility] Medical History (Updated 03/22/25 @ 12:19 by Thais Arrieta, [facility]) Abdominal pain, LUQ (left upper quadrant) Encounter for recheck of abscess following incision and drainage Vulvar abscess Bilateral hip bursitis Chronic idiopathic constipation Sessile serrated polyp of colon Sinusitis ROBBIE (generalized anxiety disorder) Mild recurrent major depression GERD (gastroesophageal reflux disease) Fibromyalgia Obesity, Class I, BMI 30-34.9 Obese Vertigo Tricuspid regurgitation Mitral valve regurgitation Vitamin D deficiency Graves' orbitopathy Uninodular goiter Asthma Graves disease Hyperthyroidism Surgical History History of esophagogastroduodenoscopy (EGD) Hx of colonoscopy History of endometrial ablation H/O ultrasound guided needle biopsy S/P fine needle aspiration Hx of hysterectomy Family History Father CVD (cardiovascular disease) Hypertension Mother CVD (cardiovascular disease) Hypertension Diabetes Son Mental health disorder Social History Household Members: Children Housing: Apartment Alcohol intake: current Alcohol intake frequency: holidays/special occasions only Patient Tobacco Use Status: Never used Tobacco e-Cigarette/Vaping Use: Never Used Second Hand Smoke Exposure: No Advance Directives Date on File: 05/18/20 service: No Current occupational status: unemployed Cognitive needs: No Hearing needs: No Vision needs: Yes Review of Systems Const Denies weight gain and Denies weight loss ENT Reports no additional complaints, Denies dysphagia and Denies odynophagia Card Reports no additional complaints Resp Reports no additional complaints GI Reports abdominal pain (epigstric, LUQ), Denies belching, Denies melena, Denies bloating, Denies change in bowel habits, Reports constipation, Denies dysphagia, Denies excessive flatus, Denies dyspepsia, Reports heartburn, Denies diarrhea, Denies loose stools, Denies nausea, Denies odynophagia and Denies vomiting Reports no additional complaints Musc Reports no additional complaints Neuro Reports no additional complaints Psych Reports no additional complaints Endo Reports no additional complaints Physical Exam Vital Signs: Last Vital Signs Pulse 56 03/22/25 10:15 BP 116/67 03/22/25 10:15 Pulse Ox 96 03/22/25 10:15 Oxygen Delivery Method Room Air 03/22/25 10:15 BMI result Body Mass Index 29.9 Const General: healthy appearing and no acute distress Nutritional Appearance: obese Orientation/consciousness: patient oriented x3 Resp Effort & Inspection: normal respiratory effort, able to speak in complete sentences, no tracheal deviation and symmetric chest movement Auscultation: clear to auscultation bilaterally Cardio Rate: regular rate Heart sounds: S1 normal heart sound present and S2 normal heart sound present GI Inspection: Yes normal to inspection, No distended and Yes obesity Palpation (GI): Soft to palpation, not firm, nontender and No hepatosplenomegaly present Auscultation: normal bowel sounds General: Yes no CVA tenderness Back/Spine/Pelvis Back: no CVA tenderness Skin General skin exam: elasticity normal, turgor normal and dry skin Neuro General: patient oriented x3 Psych Appearance: grossly normal Mental Status: mental status grossly normal Assessment & Plan Assessment & Plan (1) Abdominal pain, LUQ (left upper quadrant): Code(s): R10.12 - Left upper quadrant pain Category: Medical (2) Chronic idiopathic constipation: Code(s): K59.04 - Chronic idiopathic constipation Category: Medical (3) IBS (irritable bowel syndrome): Code(s): K58.9 - Irritable bowel syndrome, unspecified Category: Medical Qualifiers: Irritable bowel syndrome type: with both diarrhea and constipation Qualified Code(s): K58.2 - Mixed irritable bowel syndrome (4) GERD (gastroesophageal reflux disease): Code(s): K21.9 - Gastro-esophageal reflux disease without esophagitis Category: Medical Qualifiers: Esophagitis presence: esophagitis presence not specified Qualified Code(s): K21.9 - Gastro-esophageal reflux disease without esophagitis Plan Patient will continue taking Nexium daily. Avoid dietary triggers and late night snacking. Staying upright for minimum 3 hours after meals discussed with patient. Patient will increase Linzess to 290 mcg daily. Increase fluid intake and activity to promote better bowel motility. Left upper quadrant pain negative for tenderness on PE. However will send patient for CT scan. Will also check lipase. She will return in the office in 2-3 months, sooner on as needed basis. Patient will call our office if she will have any additional GI concerning symptoms. She is agreeable to current plan of care and verbalizes understanding of instructions. She was given the opportunity to ask questions and all questions answered. Thank you for allowing me to participate in her care Orders: Orders Creatinine Today R10.11 - Right upper quadrant pain Lipase Today R10.9 - Unspecified abdominal pain Blood Urea Nitrogen Today R10.11 - Right upper quadrant pain CT abdomen pelvis w IV con Today R10.12 - Left upper quadrant pain, R10.9 - Unspecified abdominal pain Medications: New linaclotide (Linzess) 290 mcg PO QAM 30 caps 4RF K59.00 - Constipation, unspecified Refilled sucralfate 10 mL PO BEDTIME 400 mL 2RF K21.9 - Gastro-esophageal reflux disease without esophagitis Discontinued linaclotide (Linzess) Discontinued Reason: Doctor's Order 145 mcg PO DAILY 90 caps 3RF K59.04 - Chronic idiopathic constipation Coding Level of Care Code Est Pt Level 4 (21987) Complex EM visit Add On G2211 Diagnoses Abdominal pain, LUQ (left upper quadrant) R10.12 Chronic idiopathic constipation K59.04 Irritable bowel syndrome with both constipation and diarrhea K58.2 Irritable bowel syndrome type: with both diarrhea and constipation Gastroesophageal reflux disease, unspecified whether esophagitis present K21.9 Esophagitis presence: esophagitis presence not specified Time Spent (min) 40 Comment 25 minutes spent with patient and additional 15 minutes spent reviewing her records
[2025-03-22 10:15] VITALS: BP 116/67; PULSE 56; O2SAT 96; BMI 29.9
--- OUTSIDE RECORDS SUMMARY | 2025-03-22 10:56 | XMS_ITS | Patient Health Record ---
Author Organization [facility] [place] Address [address] [place], [place] [id number] Care Team Providers Care Zinc Furnace Charger Name Role Phone Zelda Gonzalez Primary Care Provider Kulwant Murphy Unavailable Reason For Referral No Information Medications Medication SIG (Take, Route, Frequency, Duration) Notes Start Date End Date Status Gas-X Extra Strength 125 MG 1 tablet as needed Orally Twice a day Active valACYclovir HCl 500 MG 1 tablets Orally Once a day; Duration: 10 day(s) Active Hyoscyamine Sulfate 0.125 MG 1 tablet before meals as needed Orally Four times a day Active Mirtazapine 15 MG 1 tablet on the tong ue and allow to dissolve before bedtime in the evening Orally Once a day; Duration: 30 day(s) Active ProAir HFA 108 (90 Base) MCG/ACT 2 puffs as needed Inhalation every 4 hrs Active Flovent HFA 44 MCG/ACT 2 puff Inhalation Twice a day Active Omeprazole 20 MG 1 capsule Orally Twi ce a day; Duration: 30 day(s) Active Vitamin D 1000 UNIT 1 tablet Orally Once a day; Duration: 30 day(s) Active Singulair 10 MG 1 tablet in the even ing Orally Once a day Active Problems Problem Type SNOMED Code ICD Code Onset Dates Problem Status W/U Status Risk Notes Problem Asthma (298690734) Asthma (493.90) Active confirmed Plan Of Treatment Pending Test Test Name Order Date PFT: Methacholine challenge with FeNO measurement (fractional exhaled nitric oxide ) 05/14/2013 SLEEP STUDY-SPLIT 05/14/2013 Insurance Providers Payer Name Payer Address Payer Phone Subscriber Number Group Number Insured Name Patient Relationship to Insured Coverage Start Date Coverage End Date zzzzzz [facility] [place] [address] [address] [place] [address] [id number] Edson Camacho Self - patient is the insured Medical (General) History Medical History History ICD Code Asthma Chronic Sinusitis Fatigue Surgical History Surgery Date(Month/Year) Hysterectomy 2008
--- OUTSIDE RECORDS SUMMARY | 2025-03-22 10:56 | XMS_ITS | Clinical Summary ---
Author Organization [facility] it Address [address] [place] [address] Care Team Providers Care Grease Maker Name Role Phone Melissa Coates MD Primary Care Provider Surgical History Surgery Date Site/Laterality Comments TUBAL LIGATION PROCEDURE: HISTORICAL TUBAL LIGATION HYSTERECTOMY PROCEDURE: HISTORICAL HYSTERECTOMY; COMMENT: R ovary remaining per patient OOPHORECTOMY PROCEDURE: HISTORICAL OOPHORECTOMY; COMMENT: Left Medical History Medical History Date Comments Allergic rhinitis 06/21/2014 DX:Allergic rh initis Arthralgia of multiple sites 03/23/2015 DX: Arthralgia of multiple sites Asthma 05/16/2015 DX:Asthma Carpal tunnel syndrome 03/24/2015 DX:Carpal tunnel syndrome Depression 06/21/2014 DX:Depression DJD (degenerative joint dise ase) of knee 06/21/2014 DX:DJD (degenerative joint d isease) of knee Esophageal reflux 02/13/2018 DX:Esophageal reflux Fibromyalgia 07/22/2014 DX:Fibromyalgia; COMMENT: Rheum work up [facility]/ [facility]/ Dr Zelda Gonzalez Glaucoma 05/01/2011 DX:Glaucoma History of Helicobacter pylo ri infection 07/21/2014 DX:History of Helicobacter p ylori infection; COMMENT: Treated / date not mentioned History of herpes simplex infection 10/29/2011 DX:History of herpes simplex infection Hyperthyroidism 06/21/2014 DX:Hyperthyroidi sm; COMMENT: Methimazole (rx in [facility]). Insomnia 02/10/2015 DX:Insomnia Irritable bowel syndrome 06/21/2014 DX:Irri table bowel syndrome; COMMENT: Chinedu Moulton Lumbosacral spondylosis 06/07/2011 DX:Lumbo sacral spondylosis Vitamin D deficiency 07/21/2014 DX:Vitamin D deficiency Wheeze 07/21/2014 DX:Wheeze; COMME NT: Negative Methacholine challenge test 06/04/13 Family History Medical History Relation Name Comments Asthma Daughter 1 Heart attack Father kidney disease Diabetes Mother HTN, heart dise ase Relation Name Status Comments Daughter 1 Daughter 2 Alive 4 Father Mother Alive Son Alive 2 Social History Tobacco Use Types Packs/Day Years Used Date Smoking Tobacco: Never Smokeless Tobacco: Never Alcohol Use Standard Drinks/Week Comments Yes 0 (1 standard drink = 0.6 oz pur e alcohol) Comments Unknown Sex and Gender Information Value Date Recorded Sex Assigned at Not on file Legal Sex Female 12:25 PM EST Gender Identity Not on file Sexual Orientation Not on file Obstetrics History Plan of Treatment Health Maintenance Due Date Last Done Comments Breast Cancer Screening 1972 DTaP,Tdap,and Td Vaccines (1 - Tdap) 1991 Pneumococcal Vaccine: 50+ Years (1 of 2 - PCV) 1991 Cervical Cancer Screening: P ap Smear 1993 Hepatitis B Vaccines (3 of 3 - 19+ 3-dose series) 01/31/2013 12/06/2012, 12/07/2011, 10/29/2011 Colorectal Cancer Screening: Colonoscopy 07/03/2022 HIV Screening 07/03/2022 Hepatitis C Screening 07/03/2022 Social Influencers of Health Screening 07/03/2022 Zoster Vaccines (1 of 2) 2022 COVID-19 Vaccine (1 - 2023-2 5 season) 2024 Depression Screening 08/05/2024 Influenza Vaccine (#1) 2025 06/21/2014 HIB Vaccines Aged Out No longer eligi ble based on patient's age to complete this topic HPV Vaccines Aged Out No longer eligi ble based on patient's age to complete this topic Hepatitis A Vaccines Aged Out No long er eligible based on patient's age to complete this topic IPV Vaccines Aged Out No longer eligi ble based on patient's age to complete this topic MMR Vaccines Aged Out No longer eligi ble based on patient's age to complete this topic Meningococcal ACWY Vaccine Aged Out N o longer eligible based on patient's age to complete this topic Meningococcal B Vaccine Aged Out No l onger eligible based on patient's age to complete this topic RSV Immunization Patients Under 20 months Aged Out No longer eligible b ased on patient's age to complete this topic Varicella Vaccines Aged Out No longer eligible based on patient's age to complete this topic Care Teams Grease Maker Relationship Specialty Start Date End Date Melissa Coates MD [address] [place] [address] , [address] [facility] D/B/A: [facility] JANETTE Soriano PCP - General Internal Medicine 05/19/19
== END 2025-03-22 10:28 | disposition home or self-care (01) ==
LOC: HO.HGI 10:03
PROVIDERS: PCP Internal Medicine; Visit Provider Nurse Practitioner Family
DX: R10.12 Left upper quadrant pain (principal); K59.04 Chronic idiopathic constipation; K58.2 Mixed irritable bowel syndrome; K21.9 Gastro-esophageal reflux disease without esophagitis
CPT/HCPCS: 99214

== ENCOUNTER → 2025-03-22 10:02 | Outpatient (BNVA) | payer MEDICAID, SELFPAY | PROVIDERS: PCP Internal Medicine; Visit Provider Nurse Practitioner Family | DX: R10.12 Left upper quadrant pain (principal); K59.04 Chronic idiopathic constipation; K58.2 Mixed irritable bowel syndrome; K21.9 Gastro-esophageal reflux disease without esophagitis | CPT/HCPCS: 99212 ==

== ENCOUNTER 2025-03-29 08:07 | Outpatient (REF) | payer MEDICAID, SELFPAY ==
--- NOTE | ~2025-03-29 | CT_ITS ---
EXAMINATION: CT ABDOMEN PELVIS WITH IV CONTRAST HISTORY: R10.9 - Unspecified abdominal pain COMPARISON: There are no prior studies for available comparison. TECHNIQUE: CT scan of the abdomen and pelvis was performed following administration of 85 mL Omnipaque 350 using standard departmental protocol. Coronal and sagittal reformatted images were generated and reviewed. The patient received oral contrast material. This CT exam was performed with one or more of the following dose reduction techniques: automated exposure control, adjustment of the mA and/or kV according to patient size, use of iterative reconstruction technique. DLP: 405 mGy-cm FINDINGS: LOWER CHEST: The visualized lung bases are clear. There is no pleural effusion. CARDIOVASCULATURE: The heart is normal in size. There is no pericardial effusion. LIVER: The liver is normal in size and contour. Subcentimeter hypodensities in the liver which likely represent cysts, but are too small to accurately characterize The hepatic and portal veins are patent. GALLBLADDER / BILE DUCTS: The gallbladder is unremarkable. There is no intra or extrahepatic biliary ductal dilatation. SPLEEN: The spleen is normal in size. No focal splenic lesion is identified. PANCREAS: The pancreas is unremarkable in appearance. ADRENAL GLANDS: Within normal limits. KIDNEYS/RETROPERITONEUM: No renal calculi are identified. There is no hydronephrosis. No renal masses are identified. LYMPH NODES: No abdominal or pelvic lymphadenopathy. VASCULATURE: The abdominal aorta is normal in caliber. MESENTERY/PERITONEUM: No free fluid. No masses. There is no free intraperitoneal gas. STOMACH: The stomach is collapsed, limiting evaluation. SMALL BOWEL: The small bowel is normal in caliber. COLON: The colon is unremarkable. APPENDIX: Normal. URINARY BLADDER/PELVIC ORGANS: The urinary bladder is unremarkable. The patient is status post hysterectomy. BONES / SOFT TISSUES: No suspicious bony or soft tissue abnormalities. CT/CT abdomen pelvis w IV con IMPRESSION: Essentially unremarkable contrast-enhanced CT of the abdomen and pelvis. Electronically signed by: Ivan Bahena MD 03/29/2025 11:02 AM EDT
--- OUTSIDE RECORDS SUMMARY | 2025-03-29 08:17 | XMS_ITS | Clinical Summary ---
Author Organization [facility] it Address [address] [place] [address] Care Team Providers Care Customer Operations Representative Name Role Phone Melissa Coates MD Primary Care Provider [phone] Surgical History Surgery Date Site/Laterality Comments TUBAL [...] Fibromyalgia 07/22/2014 DX:Fibromyalgia; COMMENT: Rheum work up [facility]/ [facility]/ Dr Zelda Gonzalez Glaucoma 05/01/2011 DX:Glaucoma History of Helicobacter pylo ri infection 07/21/2014 DX:History of Helicobacter p ylori infection; COMMENT: Treated / date not mentioned History of herpes simplex infection 10/29/2011 DX:History of herpes simplex infection Hyperthyroidism 06/21/2014 DX:Hyperthyroidi sm; COMMENT: Methimazole (rx in [facility]). Insomnia 02/10/2015 DX:Insomnia Irritable bowel syndrome 06/21/2014 [...] age to complete this topic Care Teams Customer Operations Representative Relationship Specialty Start Date End Date Melissa Coates MD [address] [place] [address] , [address] [facility] D/B/A: [facility] JANETTE Soriano PCP - General Internal Medicine 05/19/19
--- OUTSIDE RECORDS SUMMARY | 2025-03-29 08:18 | XMS_ITS | Patient Health Record ---
Author Organization [facility] [place] Address [address] [place], [place] [id number] Care Team Providers Care Maxillofacial Surgeon Name Role Phone Zelda Gonzalez Primary Care Provider Kulwant Murphy Unavailable [phone] Reason For Referral No Information Medications Medication [...] Status W/U Status Risk Notes Problem Asthma (455182417) Asthma (493.90) Active confirmed Plan Of Treatment Pending Test Test Name Order Date PFT: Methacholine challenge with FeNO measurement (fractional exhaled nitric oxide ) 05/14/2013 SLEEP STUDY-SPLIT 05/14/2013 Insurance Providers Payer Name Payer Address Payer Phone Subscriber Number Group Number Insured Name Patient Relationship to Insured Coverage Start Date Coverage End Date [place] [facility] [address] [address] [place] [phone] [id number] Edson Camacho Self - patient is the insured Medical (General) History Medical History History ICD Code Asthma Chronic Sinusitis Fatigue Surgical History Surgery Date(Month/Year) Hysterectomy 2008
[2025-03-29 08:53] LABS: Blood Urea Nitrogen 12 mg/dL (9-16); Estimated Glomerular Filt Rate > 60; Lipase 16 U/L (8-78)
[2025-03-29] MEDS: iohexoL 350 MG/ML 100 ML INFUS..BTL 85 ML IV (10:51)
== END 2025-03-29 08:08 | disposition home or self-care (01) ==
LOC: HO.CT 08:07
PROVIDERS: PCP Internal Medicine; Visit Provider Nurse Practitioner Family
DX: R10.11 Right upper quadrant pain (principal); R10.12 Left upper quadrant pain
CPT/HCPCS: 36415; 74177; 82565; 83690; 84520; Q9967

== ENCOUNTER → 2025-03-29 08:09 | Outpatient (BNV) | payer MEDICAID, SELFPAY | PROVIDERS: PCP Internal Medicine; Visit Provider Radiology Diagnostic Radiology | DX: R10.9 Unspecified abdominal pain (principal) | CPT/HCPCS: 74177 ==

== ENCOUNTER 2025-04-08 13:41 | Outpatient (AMB) | payer MEDICAID, SELFPAY ==
[2025-04-08 13:43] VITALS: BP 122/94; PULSE 96; O2SAT 97
--- NOTE | 2025-04-08 13:43 | A.OFFVIS_ITS ---
Vital Signs 3 04/08/25 13:43 Height 5 ft Weight 153 lb 10.595 oz BMI 30.0 BP 122/94 H Blood Pressure Location Lt brachial Position Sitting Pulse 96 Pulse Source Pulse Oximeter Pulse Oximetry (%) 97 Oxygen Delivery Method Room Air Intake Visit Reasons: Thyrotoxicosis Intake Note: Patient present today for Thyrotoxicosis office visit. Geodetic Technician Required: No Accompanied by: Self / Same As Patient Allergies No Known Allergies Allergy (Verified 04/08/25 13:46) HPI Comments Details: 54 year old female, here today for follow up for hyperthyroidism . Thought to be due to seronegative Graves disease. Also following up for right solitary thyroid nodule. HPI from prior visit She has history of hyperthyroidism diagnosed on 2013 while she was living in [place], she was started on Methimazole 5 mg daily. She is Currently on MMI 5 mg daily. Denies mouth ulcers, abdominal pain, jaundice, rash. She is complaining of right eye pain, she has graves orbitopathy but muscles are not significantly involved. She denies diplopia. she was complaining of right eye pain in thr past ans she was seen by Dr. Mishra which did not find significant abnormality did not find need to repeats orbital CT. Patient was advised to continue eye lubricant. She has negative antibodies. TSI and TSH RAB is negative, TPO, , normal labs on MMI 5 mg daily. She had fine-needle aspiration of right mid pole nodule on 03/05/2019 cytology was consistent with benign follicular nodule [place] category 2. 01/30/2021: Ultrasound thyroid showed interval increase in the size of the right midpole nodule 02/27/2021: repeat FNA of the right midpole nodule again came with benign cytology [place] category 2. Labs 07/08/2024 showed normal TSH 1. Notes from 2021 mention plan was to take her off methimazole and assess for remission however patient says she was neevr taken off it and has been on methimazole for the past 10 years , currsabinay at 5 mg daily , has been on this dose for many years Ultrasound thyroid from 08/17/2024 showed stable size of the right midpole nodule at 1.5 cm. Labs 07/15/2024 showed normal TSH at 01:02, normal free T4 of 0.86, normal total T3 of 113, TSI antibodies undetectable, TSH receptor antibody positive at 5.58, this is consistent with Graves disease Interval history 10/08/24 Last visit in July 1024 we decreased methimazole from 5 mg daily to 2.5 mg daily. She is still symptomatic despite having normal thyroid function test. She is having hot flashes, denies heat intolerance, Denies diarrhea, + insomnia, +chronic fatigue, denies sweating, reports intermittent dysphagia, , dysphonia, occasional tremors, occasional palpitations, + irritability, + anxiety, + eye dryness. denies diplopia. Sees opthlamology yearly. has appointment with Dr. Mauri Casas at [facility] on 10/30/24 Sometimes reports apneic episodes at night. Says sleep study was unremarkable. She is feeling well. And still having discomfort mostly in the right eye. Hysterectomy in 2011 for menorrhagia. no HRT. no fractures. no BMD in the chart. 10/05/2024: TSH 1.22, free T4 0.91, total T3 94, all normal Continues on methimazole 2.5 mg daily Interval history 04/08/25 Continues on methimazole 2.5 mg daily Forgot to do blood work before appointment Physical exam General: sitting comfortably in no acute distress HEENT: normocephalic/atraumatic, EOM intact, moist oral mucosa, exophthalmos noted Neck: supple, , palpable right-sided 1 cm nodule, no dorsocervical or supraclavicular fat pads Cardiac: normal heart sounds Pulm: normal breath sounds B/L, no added breath sounds Abd: not distended, no tenderness Extremities: no edema, no signs of myxedema Laboratory Tests 09/26/18 01/09/24 05/27/24 11:05 10:38 10:44 WBC 10.0 Neut % (Auto) 60.2 Absolute Neuts (auto) 6.0 Total Bilirubin 0.2 AST 22 ALT 20 Alkaline Phosphatase 72 TSH TSH Receptor Antibody <6.0 07/08/24 11:12 WBC Neut % (Auto) Absolute Neuts (auto) Total Bilirubin AST ALT Alkaline Phosphatase TSH 1.00 TSH Receptor Antibody Laboratory Tests 07/15/24 15:48 TSH 1.02 Free T4 0.86 Total T3 113 Thyroid Stim Immunoglob <89 Thyroid Peroxidase Ab 1 TSH Receptor Ab 5.58 H Laboratory Tests 10/05/24 11:48 TSH 1.22 Free T4 0.91 Total T3 94 Imaging US THYROID 08/17/24 CLINICAL INFORMATION: Thyrotoxicosis, unspecified. Single thyroid nodule. COMPARISON: Thyroid FNA 02/27/2021. (Benign) Thyroid ultrasound 01/30/2021. TECHNIQUE: Linear transducer grayscale and color Doppler examination with attention to the region of the thyroid. FINDINGS: SIZE: Measurements of the thyroid lobes and nodules are given in sagittal, anteroposterior and transverse dimensions respectively. Right Thyroid Lobe: 5.4 x 1.9 x 2.1 cm, volume 11.2 mL. Parenchyma: The gland echotexture is normal. Thyroid vascularity is normal. Left Thyroid Lobe: 4.6 x 1.1 x 1.9 cm, volume 5.1 mL. Parenchyma: The gland echotexture is normal. Thyroid vascularity is normal. Isthmus: 0.3 cm in maximum AP dimension. Estimated total number of nodules greater than or equal to 1 cm: 1. Acct Exec nodules are described as follows: 1. Location: Right mid pole. Size: 1.5 x 1.2 x 1.3 cm, volume 1.3 mL. (Previously 1.5 x 1.1 x 1.4 cm, with volume = 1.2 mL). Nodule characteristics: Composition: Solid (2). Echogenicity: Isoechoic (1). Shape: Not taller than wide (0). Margins: Smooth (0). Echogenic Foci: None (0). ACR TI-RADS total points: 3 ACR TI-RADS category: 3 NODES: No lymphadenopathy is seen in the tissue surrounding the thyroid gland. US/US thyroid IMPRESSION: 1. There is a 1.5 cm TR category 3 nodule right mid pole, essentially unchanged. Prior FNA was benign. 2. The remainder of the thyroid gland is normal. US THYROID 01/30/21 CLINICAL INFORMATION: Thyrotoxicosis with diffuse goiter. COMPARISON: Ultrasound thyroid soft tissues neck 12/23/2018 and ultrasound thyroid soft tissues neck 06/26/2017. TECHNIQUE: Linear transducer grayscale and color Doppler examination with attention to the region of the thyroid. FINDINGS: SIZE: Measurements of the thyroid lobes and nodules are given in sagittal, anteroposterior and transverse dimensions respectively. Right Thyroid Lobe: 5.4 x 1.9 x 2.2 cm, volume 11.8 mL. Previously 5.6 x 1.6 x 1.8 cm, volume 8.4 mL. Parenchyma: The gland echotexture is homogeneous. Thyroid vascularity is increased. Left Thyroid Lobe: 4.5 x 1.0 x 1.6 cm, volume 3.8 mL. Previously 4.3 x 1.1 x 1.6 cm, volume 4.0 mL. Parenchyma: The gland echotexture is homogeneous. Thyroid vascularity is increased. Isthmus: 0.3 cm in maximum AP dimension. Previously 0.3 cm. Estimated total number of nodules greater than or equal to 1 cm: 1. Acct Exec nodules are described as follows: 1. Location: Right mid. Size: 1.5 x 1.1 x 1.4 cm, volume 1.2 mL. Previously: 1.5 x 0.8 x 1.1 cm, volume 0.70 mL. Nodule characteristics: Composition: Solid/almost completely solid (2). Echogenicity: Hyperechoic (1). Shape: Not taller than wide (0). Margins: Smooth (0). Echogenic Foci: None (0). ACR TI-RADS total points: 3 ACR TI-RADS category: 3 Significant change in size (>/= 20% in 2 dimensions and minimal increase of 2 mm or 50% or greater increase in volume): Yes Change in features: No Change in ACR TI-RADS risk category: No NODES: No lymphadenopathy is seen in the tissue surrounding the thyroid gland. US/US thyroid IMPRESSION: Slightly enlarged right lobe. Interval increase in size in the solitary right nodule from 2017 exam.. US thyroid 12/23/18 Right Thyroid Lobe: 5.6 x 1.6 x 1.8 cm, volume 8.4 mL. Previously 5.1 x 1.2 x 1.5 cm, volume 4.9 mL. Parenchyma: The gland echotexture is homogeneous. Thyroid vascularity is normal. Left Thyroid Lobe: 4.3 x 1.1 x 1.6 cm, volume 4.0 mL. Previously 4.3 x 1.1 x 1.5 cm, volume 3.6 mL. Parenchyma: The gland echotexture is homogeneous. Thyroid vascularity is normal. Isthmus: 0.3 cm in maximum AP dimension. Previously 0.3 cm. RIGHT THYROID LOBE: There is 1 nodule seen. 1. Location: Middle. Size: 1.5 x 0.8 x 1.1 cm. Previous: 0.9 x 0.5 x 0.8 cm. Nodule characteristics: Heterogeneous/complex cystic, smooth margin, no calcification and positive peripheral flow. This is increased in size from June 2017 ultrasound.. ISTHMUS: No nodules. LEFT THYROID LOBE: No nodules. NODES: No lymphadenopathy is seen in the tissue surrounding the thyroid gland. 24 h uptake scan 07/30/17 The uptake is 17.3% at 4 hours and 36.4% at 24 hours. Mildly increased radioiodine uptake with increased trapping function. The gland is slightly enlarged. These findings are consistent with Graves' disease. Laboratory Tests 05/18/20 05/18/20 12:34 12:34 25-OH Vitamin D Total 20.3 TSH 1.18 Free T4 1.06 Total T3 108 Laboratory Tests 09/26/18 04/24/19 04/24/19 11:05 10:06 10:06 25-OH Vitamin D Total 16.3 Free T4 0.90 Free T3 3.3 TSH 3rd Generation 1.50 TSH Receptor Antibody <6.0 [facility] Medical History (Updated 03/22/25 @ 12:19 by Thais Arrieta, [facility]) Abdominal pain, LUQ (left upper quadrant) Encounter for recheck of abscess following incision and drainage Vulvar abscess Bilateral hip bursitis Chronic idiopathic constipation Sessile serrated polyp of colon Sinusitis ROBBIE (generalized anxiety disorder) Mild recurrent major depression GERD (gastroesophageal reflux disease) Fibromyalgia Obesity, Class I, BMI 30-34.9 Obese Vertigo Tricuspid regurgitation Mitral valve regurgitation Vitamin D deficiency Graves' orbitopathy Uninodular goiter Asthma Graves disease Hyperthyroidism Surgical History History of esophagogastroduodenoscopy (EGD) Hx of colonoscopy History of endometrial ablation H/O ultrasound guided needle biopsy S/P fine needle aspiration Hx of hysterectomy Family History Father CVD (cardiovascular disease) Hypertension Mother CVD (cardiovascular disease) Hypertension Diabetes Son Mental health disorder Social History Household Members: Children Housing: Apartment Alcohol intake: current Alcohol intake frequency: holidays/special occasions only Patient Tobacco Use Status: Never used Tobacco e-Cigarette/Vaping Use: Never Used Second Hand Smoke Exposure: No Advance Directives Date on File: 05/18/20 service: No Current occupational status: unemployed Cognitive needs: No Hearing needs: No Vision needs: Yes Assessment & Plan Assessment & Plan (1) Hyperthyroidism: Code(s): E05.90 - Thyrotoxicosis, unspecified without thyrotoxic crisis or storm Category: Medical Plan: 53-year-old female with past medical history significant for Graves disease and solitary right-sided thyroid nodule. Diagnosed with Graves disease in 2013 in [place], was on methimazole 5 mg daily for the past 10 years. She still has quite a few symptoms, however thyroid function testing has been normal. Currently on methimazole 2.5 daily. I had reduced her dose in July 2024. She is tolerating it well. Reportedly her TSI and trab antibodies have been negative in the past, , she had an uptake and scan in 2016 which showed diffuse increased uptake consistent with Graves disease. At this point she has been on methimazole for the past 10 years, Labs 07/15/2024 showed normal TSH at 01:02, normal free T4 of 0.86, normal total T3 of 113, TSI antibodies undetectable, TSH receptor antibody positive at 5.58, this is consistent with Graves disease. 10/05/2024: TSH 1.22, free T4 0.91, total T3 94, all normal She was supposed to do blood work prior to this appointment. Plan was to reduce the methimazole to 2.5 mg every other day. However patient forgot to do blood work. Currently on methimazole 2.5 mg daily. with repeat labs and we will consider going to 2.5 mg every other day. Given positive TSH receptor antibody I am a little hesitant to take her off methimazole completely, however we will slowly start decreasing the dose. I also discussed with her options of total thyroidectomy. As well as radioactive iodine ablation. Given Graves orbitopathy, though she seems to have mild disease, she might not be an excellent candidate for radioactive iodine ablation. I discussed with her need for levothyroxine after surgery and sometimes after radioactive iodine ablation. Patient at this time we will think more about her options but for now we will continue the same dose of methimazole and wean it slowly in the next few months. If she has remission, well and good, if she relapses, I think I would refer her for total thyroidectomy. She also has a history of solitary right-sided thyroid nodule from 2019 which was biopsied in 2018 with benign cytology. The biopsy was repeated February 2021 due to increased size of the right midpole nodule with a again benign cytology. Ultrasound thyroid from 08/17/2024 showed stable size of the right midpole nodule at 1.5 cm. No need to repeat thyroid ultrasound unless patient has any clinical changes. She also has Graves orbitopathy, she follows with Ophthalmology yearly. She has been having right eye pain. Eye exam showed mild exophthalmos, no lid lag. She had a an appointment at [facility] with Dr. mauri Casas for further evaluation of Graves orbitopathy and whether she needs treatment, apparently was referred to another provider at the same practice. Pending appointment. Plan: -continue methimazole to 2.5 mg daily -follow up with Ophthalmology -do TSH, free T4, total T3, TSH receptor antibodies to be done i today, we will reach out with the results (2) Graves disease: Code(s): E05.00 - Thyrotoxicosis with diffuse goiter without thyrotoxic crisis or storm Category: Medical Plan: See above (3) Uninodular goiter: Code(s): E04.1 - Nontoxic single thyroid nodule Category: Medical Plan: See above Plan See above Coding Level of Care Code Est Pt Level 3 (54416) Diagnoses Hyperthyroidism E05.90 Graves disease E05.00 Uninodular goiter E04.1
--- OUTSIDE RECORDS SUMMARY | 2025-04-08 14:57 | XMS_ITS | Clinical Summary ---
Author Organization [facility] it Address [address] [place] [address] Care Team Providers Care Addictions Therapist Name Role Phone Melissa Coates MD Primary Care Provider [phone] Surgical History Surgery Date Site/Laterality Comments TUBAL [...] Fibromyalgia 07/22/2014 DX:Fibromyalgia; COMMENT: Rheum work up [facility]/ [facility]/ Dr Zelda Gonzalez Glaucoma 05/01/2011 DX:Glaucoma History of Helicobacter pylo ri infection 07/21/2014 DX:History of Helicobacter p ylori infection; COMMENT: Treated / date not mentioned History of herpes simplex infection 10/29/2011 DX:History of herpes simplex infection Hyperthyroidism 06/21/2014 DX:Hyperthyroidi sm; COMMENT: Methimazole (rx in [facility] Insomnia 02/10/2015 DX:Insomnia Irritable bowel syndrome [...] age to complete this topic Care Teams Addictions Therapist Relationship Specialty Start Date End Date Melissa Coates MD [address] [place] [address] , [address] [facility] D/B/A: [facility] JANETTE Soriano PCP - General Internal Medicine 05/19/19
--- OUTSIDE RECORDS SUMMARY | 2025-04-08 14:57 | XMS_ITS | Patient Health Record ---
Author Organization [facility] Address [address] [place], [place] [id number] Care Team Providers Care Bulk Station Agent Name Role Phone Zelda Gonzalez Primary Care [...] Status W/U Status Risk Notes Problem Asthma ([id number]) Asthma (493.90) Active confirmed Plan Of Treatment Pending Test Test Name Order Date PFT: Methacholine challenge with FeNO measurement (fractional exhaled nitric oxide ) 05/14/2013 SLEEP STUDY-SPLIT 05/14/2013 Insurance Providers Payer Name Payer Address Payer Phone Subscriber Number Group Number Insured Name Patient Relationship to Insured Coverage Start Date Coverage End Date [id number] [facility] [address] [address] [place] [address] [id number] Edson Camacho Self - patient is the insured Medical (General) History Medical History History ICD Code Asthma Chronic Sinusitis Fatigue Surgical History Surgery Date(Month/Year) Hysterectomy 2008
== END 2025-04-08 13:54 | disposition home or self-care (01) ==
LOC: HO.ENCR 13:42
PROVIDERS: PCP Internal Medicine; Visit Provider Student in an Organized Health Care Education/Training Program
DX: E05.90 Thyrotoxicosis, unspecified without thyrotoxic crisis or storm (principal); E05.00 Thyrotoxicosis with diffuse goiter without thyrotoxic crisis or storm; E04.1 Nontoxic single thyroid nodule
CPT/HCPCS: 99213

== ENCOUNTER 2025-04-08 13:41 | Outpatient (REF) | payer MEDICAID, SELFPAY ==
[2025-04-08 15:44] LABS: Free T4 (Free Thyroxine) 0.95 ng/dL (0.71-1.85); Thyroid Stimulating Hormone 0.63 uIU/mL (0.32-4.0)
== END 2025-04-08 13:42 | disposition home or self-care (01) ==
LOC: HO.LAB 13:41
PROVIDERS: PCP Internal Medicine; Visit Provider Student in an Organized Health Care Education/Training Program
DX: E05.00 Thyrotoxicosis with diffuse goiter without thyrotoxic crisis or storm (principal); E04.1 Nontoxic single thyroid nodule
CPT/HCPCS: 36415; 83520; 84439; 84443; 84480; 99212

== ENCOUNTER 2025-05-20 10:54 | Outpatient (REF) | payer OTHER, SELFPAY ==
--- OUTSIDE RECORDS SUMMARY | 2025-05-20 13:51 | XMS_ITS | Patient Health Record ---
Author Organization [facility] Address [address] [place], [place] [id number] Care Team Providers Care Edge Roller Name Role Phone Zelda Gonzalez Primary Care Provider Kulwant Murphy Unavailable [phone] Reason For Referral No Information Medications Medication [...] Status W/U Status Risk Notes Problem Asthma (862729924) Asthma (493.90) Active confirmed Plan Of Treatment Pending Test Test Name Order Date PFT: Methacholine challenge with FeNO measurement (fractional exhaled nitric oxide ) 05/14/2013 SLEEP STUDY-SPLIT 05/14/2013 Insurance Providers Payer Name Payer Address Payer Phone Subscriber Number Group Number Insured Name Patient Relationship to Insured Coverage Start Date Coverage End Date zzzzzz [facility] [address] [address] [place] [address] [id number] Edson Camacho Self - patient is the insured Medical (General) History Medical History History ICD Code Asthma Chronic Sinusitis Fatigue Surgical History Surgery Date(Month/Year) Hysterectomy 2008
--- OUTSIDE RECORDS SUMMARY | 2025-05-20 13:51 | XMS_ITS | Clinical Summary ---
Author Organization [facility] it Address [address] [place] [address] Care Team Providers Care Motor Vehicle Or Caravan Salesperson Name Role Phone Melissa Coates MD Primary Care Provider [phone] Surgical History Surgery Date Site/Laterality Comments TUBAL [...] Fibromyalgia 07/22/2014 DX:Fibromyalgia; COMMENT: Rheum work up [facility]/ [facility]/ Dr Zelda Gonzalez Glaucoma 05/01/2011 DX:Glaucoma History of Helicobacter pylo ri infection 07/21/2014 DX:History of Helicobacter p ylori infection; COMMENT: Treated / date not mentioned History of herpes simplex infection 10/29/2011 DX:History of herpes simplex infection Hyperthyroidism 06/21/2014 DX:Hyperthyroidi sm; COMMENT: Methimazole ([facility] Insomnia 02/10/2015 DX:Insomnia Irritable bowel syndrome [...] Last Done Comments Breast Cancer Screening 1972 Colorectal Cancer Screening: Colonoscopy 1972 DTaP,Tdap,and Td Vaccines (1 - Tdap) 1991 Pneumococcal Vaccine: 50+ Years (1 of 2 - PCV) 1991 Cervical Cancer Screening: P ap Smear 1993 Hepatitis B Vaccines (3 of 3 - 19+ 3-dose series) 01/31/2013 12/06/2012, 12/07/2011, 10/29/2011 HIV Screening 07/03/2022 Hepatitis C Screening 07/03/2022 Social Influencers of Health Screening 07/03/2022 RSV Immunization Adult Patients (1 - Risk 50-74 years 1-dose series) 2022 Zoster Vaccines (1 of 2) 2022 Depression Screening 08/05/2024 COVID-19 Vaccine (1 - 2023-2 5 season) 2025 Influenza Vaccine (#1) 2025 06/21/2014 HIB Vaccines [...] age to complete this topic Care Teams Motor Vehicle Or Caravan Salesperson Relationship Specialty Start Date End Date Melissa Coates MD [address] [place] [address] , [address] [facility] D/B/A: [facility] [place], [place] PCP - General Internal Medicine 05/19/19
== END 2025-05-20 10:55 | disposition home or self-care (01) ==
LOC: HO.LAB 10:54
PROVIDERS: Absent Provider Ophthalmology; PCP Internal Medicine; Visit Provider Internal Medicine
DX: K21.9 Gastro-esophageal reflux disease without esophagitis (principal); K59.04 Chronic idiopathic constipation; K58.2 Mixed irritable bowel syndrome; R10.12 Left upper quadrant pain; R68.81 Early satiety
CPT/HCPCS: 36415; 84436; 84445; 84480; 99212

== ENCOUNTER 2025-05-20 11:29 | Outpatient (AMB) | payer MEDICAID, SELFPAY ==
[2025-05-20 11:46] VITALS: BP 134/76; PULSE 66; O2SAT 100; BMI 30.1
--- NOTE | 2025-05-20 11:46 | A.OFFVIS_ITS ---
Vital Signs 05/20/25 11:46 Height 5 ft Weight 154 lb BMI 30.1 BP 134/76 Blood Pressure Location Lt brachial Position Sitting Pulse 66 Pulse Source Pulse Oximeter Pulse Oximetry (%) 100 Oxygen Delivery Method Room Air Intake Visit Reasons: 2 month f/u CT Scan Intake Note: ESTABLISHED PATIENT for mgmt of Marmolejo's, GERD, and chronic constipation. Chief Complaint; Pt denies any GI changes or new concerns at this time. Beam Dyer Required: No Accompanied by: Self / Same As Patient Allergies No Known Allergies Allergy (Verified 05/20/25 11:46) HPI HPI 2 month f/u CT Scan: Details: LAST VISIT: Abdominal pain, LUQ (left upper quadrant) Chronic idiopathic constipation IBS (irritable bowel syndrome) GERD (gastroesophageal reflux disease) Plan Patient will continue taking Nexium daily. Avoid dietary triggers and late night snacking. Staying upright for minimum 3 hours after meals discussed with patient. Patient will increase Linzess to 290 mcg daily. Increase fluid intake and activity to promote better bowel motility. Left upper quadrant pain negative for tenderness on PE. However will send patient for CT scan. Will also check lipase. She will return in the office in 2-3 months, sooner on as needed basis. Patient will call our office if she will have any additional GI concerning symptoms. She is agreeable to current plan of care and verbalizes understanding of instructions. She was given the opportunity to ask questions and all questions answered. ? Thank you for allowing me to participate in her care Orders Creatinine Today R10.11 Lipase Today R10.9 Blood Urea Nitrogen Today R10.11 CT abdomen pelvis w IV con Today R10.12, R10.9 New linaclotide (Linzess) 290 mcg PO QAM 30 caps 4RF K59.00 Refilled sucralfate 10 mL PO BEDTIME 400 mL 2RF K21.9 Discontinued linaclotide (Linzess) Discontinued Reason: Doctor's Order 145 mcg PO DAILY 90 caps 3RF K59.04 TODAY'S VISIT: Patient is here today for follow-up and to discuss CT scan results. Patient reports to be feeling better. Able to move her bowels better now. Less abdominal cramping. However patient reports she still is having abdominal bloating and excessive gas depending on what she eats. Patient also reports occasional epigastric pain and feeling full quickly specially when eating food like bread, rice and beans. Patient reports that Nexium is helpful. Denies having any acid reflux, dyspepsia, dysphagia or odynophagia. Patient denies melena, hematochezia, unintentional weight loss or ribbon like stools. Patient denies any other GI concerning symptoms. [facility] Medical History Abdominal pain, LUQ (left upper quadrant) Encounter for recheck of abscess following incision and drainage Vulvar abscess Bilateral hip bursitis Chronic idiopathic constipation Sessile serrated polyp of colon Sinusitis ROBBIE (generalized anxiety disorder) Mild recurrent major depression GERD (gastroesophageal reflux disease) Fibromyalgia Obesity, Class I, BMI 30-34.9 Obese Vertigo Tricuspid regurgitation Mitral valve regurgitation Vitamin D deficiency Graves' orbitopathy Uninodular goiter Asthma Graves disease Hyperthyroidism Surgical History History of esophagogastroduodenoscopy (EGD) Hx of colonoscopy History of endometrial ablation H/O ultrasound guided needle biopsy S/P fine needle aspiration Hx of hysterectomy Family History Father CVD (cardiovascular disease) Hypertension Mother CVD (cardiovascular disease) Hypertension Diabetes Son Mental health disorder Social History Household Members: Children Housing: Apartment Alcohol intake: current Alcohol intake frequency: holidays/special occasions only Patient Tobacco Use Status: Never used Tobacco e-Cigarette/Vaping Use: Never Used Second Hand Smoke Exposure: No Advance Directives Date on File: 05/18/20 service: No Current occupational status: unemployed Cognitive needs: No Hearing needs: No Vision needs: Yes Physical Exam Vital Signs: Last Vital Signs Pulse 66 05/20/25 11:46 BP 134/76 05/20/25 11:46 Pulse Ox 100 05/20/25 11:46 Oxygen Delivery Method Room Air 05/20/25 11:46 BMI result Body Mass Index 30.1 Results Reviewed Results Reviewed: ABDOMINAL CT SCAN FINDINGS: LOWER CHEST: The visualized lung bases are clear. There is no pleural effusion. CARDIOVASCULATURE: The heart is normal in size. There is no pericardial effusion. LIVER: The liver is normal in size and contour. Subcentimeter hypodensities in the liver which likely represent cysts, but are too small to accurately characterize The hepatic and portal veins are patent. GALLBLADDER / BILE DUCTS: The gallbladder is unremarkable. There is no intra or extrahepatic biliary ductal dilatation. SPLEEN: The spleen is normal in size. No focal splenic lesion is identified. PANCREAS: The pancreas is unremarkable in appearance. ADRENAL GLANDS: Within normal limits. KIDNEYS/RETROPERITONEUM: No renal calculi are identified. There is no hydronephrosis. No renal masses are identified. LYMPH NODES: No abdominal or pelvic lymphadenopathy. VASCULATURE: The abdominal aorta is normal in caliber. MESENTERY/PERITONEUM: No free fluid. No masses. There is no free intraperitoneal gas. STOMACH: The stomach is collapsed, limiting evaluation. SMALL BOWEL: The small bowel is normal in caliber. COLON: The colon is unremarkable. APPENDIX: Normal. URINARY BLADDER/PELVIC ORGANS: The urinary bladder is unremarkable. The patient is status post hysterectomy. BONES / SOFT TISSUES: No suspicious bony or soft tissue abnormalities. CT/CT abdomen pelvis w IV con IMPRESSION: Essentially unremarkable contrast-enhanced CT of the abdomen and pelvis. Assessment & Plan Assessment & Plan (1) Abdominal pain, LUQ (left upper quadrant): Code(s): R10.12 - Left upper quadrant pain Category: Medical (2) Chronic idiopathic constipation: Code(s): K59.04 - Chronic idiopathic constipation Category: Medical (3) GERD (gastroesophageal reflux disease): Code(s): K21.9 - Gastro-esophageal reflux disease without esophagitis Category: Medical Qualifiers: Esophagitis presence: esophagitis presence not specified Qualified Code(s): K21.9 - Gastro-esophageal reflux disease without esophagitis (4) IBS (irritable bowel syndrome): Code(s): K58.9 - Irritable bowel syndrome, unspecified Category: Medical Qualifiers: Irritable bowel syndrome type: with both diarrhea and constipation Qualified Code(s): K58.2 - Mixed irritable bowel syndrome (5) Early satiety: Code(s): R68.81 - Early satiety Plan Patient will continue on Linzess. Continue Nexium. Discussed with patient the importance of avoiding dietary triggers. Continue follow low FODMAP diet. Patient can take simethicone with meals. Reports early satiety with most of her meals, specially in the afternoon. Patient will be sent for GES to rule out gastroparesis. For now patient was encouraged to eat smaller meals and more often. I will see patient in 4 months, sooner on as needed basis. Patient is agreeable to this plan and verbalizes understanding of instructions. She was given the opportunity to ask questions and all questions answered. Thank you for allowing me to participate in her care Orders: Orders NM gastric emptying study Today R68.81 - Early satiety Medications: New simethicone (Gas Relief (simethicone)) 125 mg PO BID-TID PRN 90 tabs 3RF abdominal distention Coding Level of Care Code Est Pt Level 4 (85206) Complex EM visit Add On G2211 Diagnoses Abdominal pain, LUQ (left upper quadrant) R10.12 Chronic idiopathic constipation K59.04 Gastroesophageal reflux disease, unspecified whether esophagitis present K21.9 Esophagitis presence: esophagitis presence not specified Irritable bowel syndrome with both constipation and diarrhea K58.2 Irritable bowel syndrome type: with both diarrhea and constipation Early satiety R68.81 Time Spent (min) 40 Comment 25 minutes spent with patient and additional 15 minutes spent reviewing her records
== END 2025-05-20 12:17 | disposition home or self-care (01) ==
LOC: HO.HGI 11:30
PROVIDERS: PCP Internal Medicine; Visit Provider Nurse Practitioner Family
DX: R10.12 Left upper quadrant pain (principal); K59.04 Chronic idiopathic constipation; K21.9 Gastro-esophageal reflux disease without esophagitis; K58.2 Mixed irritable bowel syndrome; R68.81 Early satiety
CPT/HCPCS: 99214

== ENCOUNTER 2025-06-04 11:44 | Outpatient (AMB) | payer MEDICAID, SELFPAY ==
[2025-06-04 12:32] VITALS: BP 120/72; PULSE 75; O2SAT 97; BMI 30.2
--- NOTE | 2025-06-04 12:32 | A.OFFVIS_ITS ---
Vital Signs 06/04/25 12:32 Height 5 ft Weight 154 lb 12.232 oz BMI 30.2 BP 120/72 Blood Pressure Location Lt brachial Position Sitting Pulse 75 Pulse Source Pulse Oximeter Pulse Oximetry (%) 97 Oxygen Delivery Method Room Air Intake Visit Reasons: follow up Intake Note: Patient last seen by doctor Nina Tolliver on 10/21/24. Presents today for Fibromyalgia follow up. Cooking Show Host Required: No Accompanied by: Self / Same As Patient Allergies No Known Allergies Allergy (Verified 06/04/25 12:35) HPI Comments Details: Patient is a 54-year-old female with recurrent major depression, asthma, Graves disease with hyperthyroidism on methimazole, and fibromyalgia who presents today for follow-up Interval History: Patient last seen 10/21/2024 with me - Not on any rheum medications - Overall feels the same but does note that she is trying to do more exercises and stretches. - Did not start the gabapentin because she did not get it at the pharmacy and patient did not reach out to the office to see what happened to the prescription Today - On gabapentin 100mg nightly - No side effects from gabapentin - Complaining of posterior neck pain and tenderness to the touch Rheumatologic History: Was seen back in 2019 with multiple complaints. Ultimately diagnosed with fibromyalgia. It has been using tizanidine p.r.n. to help with muscle spasms. Previously on gabapentin 300 mg t.i.d. but unsure of the efficacy as she is not on it currently. Current Rheumatology Medication(s): Gabapentin 100mg nightly [facility], [facility] Medical History (Updated 06/04/25 @ 12:36 by Mily Nuñez CMA) Thyroid eye disease Abdominal pain, LUQ (left upper quadrant) Encounter for recheck of abscess following incision and drainage Vulvar abscess Bilateral hip bursitis Chronic idiopathic constipation Sessile serrated polyp of colon Sinusitis ROBBIE (generalized anxiety disorder) Mild recurrent major depression GERD (gastroesophageal reflux disease) Fibromyalgia Obesity, Class I, BMI 30-34.9 Obese Vertigo Tricuspid regurgitation Mitral valve regurgitation Vitamin D deficiency Graves' orbitopathy Uninodular goiter Asthma Graves disease Hyperthyroidism Surgical History History of esophagogastroduodenoscopy (EGD) Hx of colonoscopy History of endometrial ablation H/O ultrasound guided needle biopsy S/P fine needle aspiration Hx of hysterectomy Family History Father CVD (cardiovascular disease) Hypertension Mother CVD (cardiovascular disease) Hypertension Diabetes Son Mental health disorder Social History Household Members: Children Housing: Apartment Alcohol intake: current Alcohol intake frequency: holidays/special occasions only Patient Tobacco Use Status: Never used Tobacco e-Cigarette/Vaping Use: Never Used Second Hand Smoke Exposure: No Advance Directives Date on File: 05/18/20 service: No Current occupational status: unemployed Cognitive needs: No Hearing needs: No Vision needs: Yes Review of Systems Narrative Review of Systems Constitutional: Denies fever, chills, weight loss ENT: Denies vision changes, eye pain or eye redness, dental caries, dry mouth GI: Denies nausea, vomiting, diarrhea, abdominal pain, change in BM Pulm: Denies SOB, TEJADA, hemoptysis, wheezing Cards: Denies chest pain, palpitations Skin: Denies Raynaud's, rash, nail changes, photosensitivity, DIETETIC TECH: Denies headaches, weakness, paresthesias, recurrent falls MSK: as per HPI All other systems reviewed and are unremarkable except noted above Physical Exam Exam Exam: Vital signs reviewed Physical Examination CONSTITUITIONAL Patient alert and cooperative. Well appearing and in no apparent painful distress MSK Hands * Right Hand: Able to make a fist. No swelling or tenderness to palpation of the MCPs, PIPs or DIPs. * Left Hand: Able to make a fist. No swelling or tenderness to palpation of the MCPs, PIPs or DIPs. Wrists * Right Wrist: Full ROM to flexion and extension. No swelling or TTP * Left Wrist: Full ROM to flexion and extension. No swelling or TTP Elbows * Right Elbow: Full ROM. No swelling or TTP. No TTP of the medial epicondyle. No TTP of the lateral epicondyle * Left Elbow: Full ROM. No swelling or TTP. No TTP of the medial epicondyle. No TTP of the lateral epicondyle Shoulders * Right shoulder: Full ROM. No swelling noted. No TTP of the AC joint. No TTP of the subacromial bursa. No TTP of the posterior shoulder * Left shoulder: Full ROM. No swelling noted. No TTP of the AC joint. No TTP of the subacromial bursa. No TTP of the posterior shoulder Knees * Right knee: Full ROM. No swelling noted. No TTP of the knee joint line. No TTP of pes anserine bursa * Left knee: Full ROM. No swelling noted. No TTP of the knee joint line. No TTP of pes anserine bursa. * Crepitations felt bilaterally Ankles * Right ankle: Good ankle dorsiflexion and plantar flexion. No swelling. No TTP of the ankle joint * Left ankle: Good ankle dorsiflexion and plantar flexion. No swelling. No TTP of the ankle joint Feet * Right foot: Negative squeeze test * Left foot: Negative squeeze test Tender points? * Tenderness to palpation of the bilateral trapezius, supraspinatus, anterior costochondral junctions, bilateral suboccipital muscle insertions SKIN No rashes Vital Signs: Last Vital Signs Pulse 75 06/04/25 12:32 BP 120/72 06/04/25 12:32 Pulse Ox 97 06/04/25 12:32 Oxygen Delivery Method Room Air 06/04/25 12:32 BMI result Body Mass Index 30.2 Results Reviewed Results Reviewed: Laboratory Tests 10/23/22 10/29/24 03/29/25 12:49 12:35 08:38 WBC 8.0 RBC 4.54 Hgb 13.4 Hct 40.1 Plt Count 251 ESR 21 H BUN 12 Creatinine 0.63 SI Joint XR 01/09/24 FINDINGS: Degenerative changes in the imaged lower lumbar spine. Pubic symphysis is maintained. Mild degenerative changes on the limited views of the bilateral hips. Rounded pelvic calcifications are likely vascular. Bilateral sacroiliac joints are maintained. Limited visualization of the sacrum/coccyx due to overlying bowel and bony structures Shoulder XR 12/21/22 FINDINGS: Small marginal osteophytes at the glenoid. No joint space narrowing. Minimal acromioclavicular osteoarthritis. Enthesopathic spurring is present at the greater tuberosity. No fracture or malalignment. Soft tissues are unremarkable Assessment & Plan Assessment & Plan (1) Fibromyalgia: Code(s): M79.7 - Fibromyalgia Category: Medical Plan: #Fibromyalgia Patient is a 54-year-old female with fibromyalgia here today for follow up. Had a long discussion with the patient again about her diagnosis of fibromyalgia. I informed her again that fibromyalgia is an incurable disease that is characterized by chronic pain. With respect to the pain at the back of her neck I recommended ice and a short course of Celebrex. We will titrate the gabapentin to 300 mg nightly Plan - Gabapentin 300mg nightly - Celebrex 200mg bid - Topical diclofenac 1% qid to knees - RTC 6 months Plan I spent 40 minutes reviewing the record and labs, seeing the patient, discussing the treatment plan, explaining the diagnosis of fibromyalgia as well as counseling and documenting in the medical record ? Medications: Changed From gabapentin 100 mg PO BEDTIME 90 caps 1RF M79.7 - Fibromyalgia To gabapentin 300 mg PO BEDTIME 90 caps 1RF 90 days M79.7 - Fibromyalgia From celecoxib (Celebrex) 200 mg (2 x 100 mg) PO BID 30 days PRN 60 caps 0RF pain M79.7 - Fibromyalgia To celecoxib (Celebrex) 200 mg (2 x 100 mg) PO BID PRN 60 caps 0RF pain 14 days M79.7 - Fibromyalgia Coding Level of Care Code Est Pt Level 5 (51370) Diagnoses Fibromyalgia M79.7
--- OUTSIDE RECORDS SUMMARY | 2025-06-04 13:23 | XMS_ITS | Clinical Summary ---
Author Organization [facility] it Address [address] [place] [address] Care Team Providers Care Medical Transcriber Name Role Phone Melissa Coates MD Primary Care Provider [phone] Surgical History Surgery Date Site/Laterality Comments TUBAL [...] Fibromyalgia 07/22/2014 DX:Fibromyalgia; COMMENT: Rheum work up [facility]/ [facility]/ Dr Zelda Gonzalez Glaucoma 05/01/2011 DX:Glaucoma History of Helicobacter pylo ri infection 07/21/2014 DX:History of Helicobacter p ylori infection; COMMENT: Treated / date not mentioned History of herpes simplex infection 10/29/2011 DX:History of herpes simplex infection Hyperthyroidism 06/21/2014 DX:Hyperthyroidi sm; COMMENT: Methimazole (rx in [facility]). Insomnia 02/10/2015 DX:Insomnia Irritable bowel syndrome [...] age to complete this topic Care Teams Medical Transcriber Relationship Specialty Start Date End Date Melissa Coates MD [address] [place] [address] , [address] [facility] D/B/A: [facility] [place], [place] PCP - General Internal Medicine 05/19/19
--- OUTSIDE RECORDS SUMMARY | 2025-06-04 13:23 | XMS_ITS | Patient Health Record ---
Author Organization [facility] [place] Address [address] [place], [place] [id number] Care Team Providers Care Housing Inspector Name Role Phone Zelda Gonzalez Primary Care Provider UnavailKulwant Rodriguez Unavailable Reason For Referral No Information Medications Medication SIG (Take, Route, Frequency, Duration) Notes Start Date End Date Status Gas-X Extra Strength 125 MG Tablet Chewable 1 tablet as needed Orally Twice a day Active valACYclovir HCl 500 MG Tablet 1 tablets Orally Once a day; Duration: 10 day(s) Active Hyoscyamine Sulfate 0.125 MG Tablet 1 tablet before meals as needed Orally Four times a day Active Mirtazapine 15 MG Tablet Dispersible 1 tablet on the tongue and allow to dissolve before bedtime in the evening Orally Once a day; Duration: 30 day(s) Active ProAir HFA 108 (90 Base) MCG/ACT Aerosol Solution 2 puffs as needed Inhalation every 4 hrs Active Flovent HFA 44 MCG/ACT Aerosol 2 puff Inhalation Twice a day Active Omeprazole 20 MG Capsule Delayed Release 1 capsule Orally Twice a day; Duration: 30 day(s) Active Vitamin D 1000 UNIT Tablet 1 tablet Oral ly Once a day; Duration: 30 day(s) Active Singulair 10 MG Tablet 1 tablet in the e vening Orally Once a day Active Social History Social History Additional Details Category Social Info Options Details Social History 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 exposure: Unknown Alcohol: Occasional Recreational drug use: None Exercise: Limited; No stru ctured exercise regimen Marital status Single Lives with her 2 youngest children: 14 yo daughter and 17 yo son Children Four, daughters, Two, sons Travel outside [place]. Problems Problem Type SNOMED Code ICD Code Onset Dates Problem Status W/U Status Risk Notes Problem Asthma (303141283) Asthma (493.90) Active confirmed Plan Of Treatment Pending Test Test Name Order Date PFT: Methacholine challenge with FeNO measurement (fractional exhaled nitric oxide ) 05/14/2013 SLEEP STUDY-SPLIT 05/14/2013 Insurance Providers Payer Name Payer Address Payer Phone Subscriber Number Group Number Insured Name Patient Relationship to Insured Coverage Start Date Coverage End Date karissa [facility] [address] [address] [place] [address] [id number] Edson Camacho Self - patient is the insured Medical (General) History Medical History History ICD Code Asthma Chronic Sinusitis Fatigue Surgical History Surgery Date(Month/Year) Hysterectomy 2007
== END 2025-06-04 13:09 | disposition home or self-care (01) ==
PROVIDERS: PCP Internal Medicine; Visit Provider Student in an Organized Health Care Education/Training Program
DX: M79.7 Fibromyalgia (principal)
CPT/HCPCS: 99215

== ENCOUNTER → 2025-06-04 11:44 | Outpatient (BNVA) | payer OTHER, SELFPAY | PROVIDERS: PCP Internal Medicine; Visit Provider Student in an Organized Health Care Education/Training Program | DX: M79.7 Fibromyalgia (principal) | CPT/HCPCS: 99212 ==

== ENCOUNTER → 2025-06-30 08:17 | Outpatient (REF) | payer MEDICAID, SELFPAY ==
--- NOTE | ~2025-06-30 | NM_ITS ---
EXAMINATION: NE RADIONUCLIDE SOLID FOOD GASTRIC EMPTYING 4-HOUR STUDY CLINICAL INFORMATION: R68.81 - Early satiety, abdominal pain, nausea, diarrhea, constipation COMPARISON: None TECHNIQUE: A standard meal consisting of 4 oz of Egg Beaters brand tagged with 0.86 microcuries Tc-99m Sulfur Colloid, 8 oz water and 2 slices of toast with jelly was administered orally to the patient. Images were obtained using a dual head gamma camera in the anterior and posterior projections over of the stomach immediately post ingestion and at hourly intervals up to 4 hours post ingestion. The anterior and posterior counts at each time interval were averaged using the geometric mean and expressed as percentage of the immediate post ingestion counts. FINDINGS: There is good visualization of activity in the stomach immediately post ingestion. As the study progresses, there is good clearance of activity from the stomach and visualization of progressively increasing small bowel activity. Retention in the stomach at each time interval was: 1 hour 84% (normal 37%-90%) 2 hours 68% (normal 30%-60%) 3 hours 50% 4 hours 38% (normal 0%-10%) NE/NE gastric emptying study IMPRESSION: Grade 3 (severe retention): 36-50% at 4h For solid meal, rapid gastric emptying is less than 30% at 60 minutes. Delayed gastric emptying criteria is more than 60% remaining at 120 minutes or more than 10% at 240 minutes. The 4-hour value is the best discriminator of a normal or abnormal result). Gastric emptying study grading per JNMT Consensus Recommendations in 2008 (https://tech.snmjournals.org/content/36/1/44) Grade 1 (mild retention): 11-20% at 4h Grade 2 (moderate retention): 21-35% at 4h Grade 3 (severe retention): 36-50% at 4h Grade 4 (very severe retention): >50% retention at 4h Electronically signed by: Ken Goldman MD 06/30/2025 01:06 PM [facility]
--- OUTSIDE RECORDS SUMMARY | 2025-06-30 08:35 | XMS_ITS | Patient Health Record ---
Author Organization [facility] [place] Address [address] [place], [place] [id number] Care Team Providers Care Social Work Lecturer Name Role Phone Zelda Gonzalez Primary Care [...] Children Four, daughters, Two, sons Travel outside [place]. Problems Problem Type SNOMED Code ICD Code Onset Dates Problem Status W/U Status Risk Notes Problem Asthma (720194508) Asthma (493.90) Active confirmed Plan Of Treatment Pending Test Test Name Order Date PFT: Methacholine challenge with FeNO measurement (fractional exhaled nitric oxide ) 05/14/2013 SLEEP STUDY-SPLIT 05/14/2013 Insurance Providers Payer Name Payer Address Payer Phone Subscriber Number Group Number Insured Name Patient Relationship to Insured Coverage Start Date Coverage End Date karissa [facility] [address] [address] [place] [address] [id number] Edson Camacho Self - patient is the insured Medical (General) History Medical History History ICD Code Asthma Chronic Sinusitis Fatigue Surgical History Surgery Date(Month/Year) Hysterectomy 2007
--- OUTSIDE RECORDS SUMMARY | 2025-06-30 08:35 | XMS_ITS | Clinical Summary ---
Author Organization [facility] it Address [address] [place] [address] Care Team Providers Care Pizza Hut Team Member Name Role Phone Melissa Coates MD Primary Care Provider [phone] Surgical History Surgery Date Site/Laterality Comments TUBAL [...] Fibromyalgia 07/22/2014 DX:Fibromyalgia; COMMENT: Rheum work up [facility]/ [facility]/ Dr Zelda Gonzalez Glaucoma 05/01/2011 DX:Glaucoma History of Helicobacter pylo ri infection 07/21/2014 DX:History of Helicobacter p ylori infection; COMMENT: Treated / date not mentioned History of herpes simplex infection 10/29/2011 DX:History of herpes simplex infection Hyperthyroidism 06/21/2014 DX:Hyperthyroidi sm; COMMENT: Methimazole ([facility] Insomnia 02/10/2015 DX:Insomnia Irritable bowel syndrome [...] DTaP,Tdap,and Td Vaccines (1 - Tdap) 1991 Cervical Cancer Screening: P ap Smear 1993 Hepatitis B Vaccines (3 of 3 - 19+ 3-dose series) 01/31/2013 12/06/2012, 12/07/2011, 10/29/2011 Pneumococcal Vaccine: 50+ Years (1 of 1 - PCV) 2022 Zoster Vaccines (1 of 2) 2022 Depression Screening 08/05/2024 COVID-19 Vaccine (1 - 2024-2 6 season) 2025 Influenza Vaccine (#1) 2025 06/21/2014 RSV Immunization Adult Patients (1 - 1-dose 75+ series) 2047 HIB Vaccines Aged Out No longer eligi [...] age to complete this topic Care Teams Pizza Hut Team Member Relationship Specialty Start Date End Date Melissa Coates MD [address] [facility] [address], [address] [facility] D/B/A: [facility] JANETTE Soriano PCP - General Internal Medicine 05/19/19
== END ==
LOC: HO.NUCMED 08:17
PROVIDERS: PCP Internal Medicine; Visit Provider Nurse Practitioner Family
DX: R68.81 Early satiety (principal)
CPT/HCPCS: 78264; A9541

== ENCOUNTER → 2025-06-30 08:21 | Outpatient (BNV) | payer MEDICAID, SELFPAY | PROVIDERS: PCP Internal Medicine; Visit Provider Radiology Diagnostic Radiology | DX: R68.81 Early satiety (principal) | CPT/HCPCS: 78264 ==

== ENCOUNTER 2025-07-19 10:02 | Outpatient (AMB) | payer MEDICAID, SELFPAY ==
[2025-07-19 10:04] VITALS: BP 132/70; PULSE 63; RESP 18; O2SAT 99; BMI 30.5
--- NOTE | 2025-07-19 10:04 | A.OFFPC_ITS ---
Vital Signs 07/19/25 10:04 Height 5 ft Weight 156 lb BMI 30.5 BP 132/70 Blood Pressure Location Lt brachial Position Sitting Respiration 18 Pulse 63 Pulse Source Pulse Oximeter Temp Source Temporal Artery Scan Pulse Oximetry (%) 99 Oxygen Delivery Method Room Air Intake Visit Reasons: Depression Petrologist Required: No Accompanied by: Self / Same As Patient Allergies No Known Allergies Allergy (Verified 07/19/25 10:24) Medication List - Last Reconciled 07/19/25 by Melissa Coates MD albuterol sulfate 90 mcg/actuation (ProAir RespiClick) 2 inhalations inhalation Q6H PRN 30 days albuterol sulfate 2.5 mg (3 mL) inhalation Q6H PRN 30 days blood pressure monitor (Blood Pressure Kit) As directed buspirone 5 mg PO BID celecoxib (Celebrex) 200 mg (2 x 100 mg) PO BID PRN 14 days cetirizine (Zyrtec) 10 mg PO DAILY PRN cholecalciferol (vitamin D3) 125 mcg PO DAILY 90 days cyclobenzaprine 10 mg PO TID PRN diclofenac sodium 1% 4 grams topical QID esomeprazole magnesium 40 mg PO DAILY fluticasone propionate 50 mcg/actuation (Flonase Allergy Relief) 2 sprays intranasal DAILY gabapentin 300 mg PO BEDTIME 90 days ketotifen fumarate 0.025%(0.035%) (Eye Itch Relief) drps ophthalmic (eye) linaclotide (Linzess) 290 mcg PO QAM Held on 06/30/25. Instructions: Doctor's Order meclizine 25 mg PO DAILY PRN 30 days methimazole 2.5 mg (1/2 x 5 mg) PO DAILY 90 days prucalopride (Motegrity) 2 mg PO DAILY simethicone (Gas Relief (simethicone)) 125 mg PO BID-TID PRN sucralfate 10 mL PO BEDTIME umeclidinium-vilanterol 62.5-25 mcg/actuation (Anoro Ellipta) 1 inh inhalation DAILY 60 days valacyclovir 1,000 mg PO Q8H 7 days Ventolin HFA 90 mcg/actuation (albuterol sulfate) 2 puffs inhalation Q6H PRN 30 days NS zolpidem mg PO Tobacco use date assessed: 07/19/25 Dental Screening Dental Screen Date: 07/19/25 Did you have a dental visit in the last 12 months?: No Did you have a dental problem in the last 6 months where you did not have access to dental care?: No Was dental information given to patient?: Patient has dentist HPI HPI Comments History of Present Illness Details The patient is a 54 year old female presenting for a follow-up visit to review medications and address ongoing health concerns. Her current medications include a rescue inhaler for asthma, buspirone for anxiety, Celebrex for pain, Zyrtec for allergic rhinitis, vitamin D, Flexeril as a muscle relaxant, esom eprazole for GERD, gabapentin, methimazole for hyperthyroidism which is managed by endocrinology, and carafate. She reports no known drug allergies. For constipation, she was prescribed Motegrity (prucalopride), but its fulfillment is delayed pending prior authorization from her insurance. She reports Liness was previously held. For thyroid eye disease, the patient reports she has been approved for infusions but requires an audiology evaluation before starting treatment. She experiences vertigo when moving her head and has associated tinnitus, which is more pronounced in one ear. Her depression and anxiety are reported to be stable. Regarding preventative care, her last mammogram was in June 2024. A recent move from an apartment with carpets to one without has been beneficial for her allergies. [facility] Medical History (Updated 07/19/25 @ 10:34 by Melissa Coates MD) Thyroid eye disease Abdominal pain, LUQ (left upper quadrant) Encounter for recheck of abscess following incision and drainage Vulvar abscess Bilateral hip bursitis Chronic idiopathic constipation Sessile serrated polyp of colon Sinusitis ROBBIE (generalized anxiety disorder) Mild recurrent major depression GERD (gastroesophageal reflux disease) Fibromyalgia Obesity, Class I, BMI 30-34.9 Obese Vertigo Tricuspid regurgitation Mitral valve regurgitation Vitamin D deficiency Graves' orbitopathy Uninodular goiter Asthma Graves disease Hyperthyroidism Surgical History History of esophagogastroduodenoscopy (EGD) Hx of colonoscopy History of endometrial ablation H/O ultrasound guided needle biopsy S/P fine needle aspiration Hx of hysterectomy Family History Father CVD (cardiovascular disease) Hypertension Mother CVD (cardiovascular disease) Hypertension Diabetes Son Mental health disorder Social History Household Members: Children Housing: Apartment Alcohol intake: current Alcohol intake frequency: holidays/special occasions only Patient Tobacco Use Status: Never used Tobacco e-Cigarette/Vaping Use: Never Used Second Hand Smoke Exposure: No Advance Directives Date on File: 05/18/20 service: No Current occupational status: unemployed Cognitive needs: No Hearing needs: No Vision needs: Yes Questionnaire Thrive Questionnaire Date Thrive assessed: 07/19/25 I am a: Patient What is your living situation today?: I have a steady place to live Within the past 12 months, did the food you bought not last and you didn't have the money to get more?: Sometimes True Within the past 12 months, did you worry whether your food would run out before you got money to buy more?: Sometimes True Do you have trouble paying for medicines?: No Do you have trouble getting transportation to medical appointments?: No Do you have trouble paying your heating and electricity bill?: No Do you have trouble taking care of your child, family member or friend?: No Do you have trouble with day-to-day activities such as bathing, preparing meals, shopping, managing finances, etc.?: No Are you currently unemployed and looking for a job?: No Are you interested in more education?: No Please select the resources that you would like help with: Transportation Currently or been in a relationship where the following occur: No concerns reported THRIVE Score: 2 ROBBIE-7 AMB Questionnaire ROBBIE-7 Date ROBBIE - 7 assessed: 01/14/25 Source: Developed by Drs. Ivan Zapata, Elvira Hernandez, Dimitri Alfred and colleagues, with an educational valdo from [employer]. Review of Systems Const All systems reviewed & are unremarkable except as noted in HPI and below Card Denies chest pain at rest, Denies chest pain with activity, Denies edema, Denies irregular heart rhythm, Denies claudication, Denies dyspnea, Denies dyspnea on exertion, Denies orthopnea, Denies paroxysmal nocturnal dyspnea and Denies slow heart rate Resp Denies cough, Denies dyspnea and Denies dyspnea on exertion Physical exam (Primary Care) Vital Signs: Last Vital Signs Pulse 63 07/19/25 10:04 Resp 18 07/19/25 10:04 BP 132/70 07/19/25 10:04 Pulse Ox 99 07/19/25 10:04 Oxygen Delivery Method Room Air 07/19/25 10:04 BMI result Body Mass Index 30.5 Tobacco/Smoking Status: Tobacco use Status Tobacco use date assessed 07/19/25 07/19/25 10:11 Patient Tobacco Use Status Never used Tobacco 07/19/25 10:11 e-Cigarette/Vaping Use Never Used 07/19/25 10:11 Thrive Assessment: Date of Thrive Assessment Date Thrive assessed 07/19/25 07/19/25 10:11 Currently or been in a relationship where the following occur: No concerns reported Resp Effort & Inspection: normal respiratory effort Auscultation: clear to auscultation bilaterally Cardio Jugular venous distension: no JVD Rate: regular rate Rhythm: regular rhythm Heart sounds: S1 normal heart sound present and S2 normal heart sound present Extrem General: Yes full ROM Coding Level of Care Code Add On Preventative Visit Only Diagnoses Mild recurrent major depression F33.0 ROBBIE (generalized anxiety disorder) F41.1 Hyperthyroidism E05.90 Gastroesophageal reflux disease, unspecified whether esophagitis present K21.9 Esophagitis presence: esophagitis presence not specified Moderate persistent asthma without complication J45.40 Asthma severity: moderate Asthma persistence: persistent Asthma complication type: uncomplicated Time Spent (min) 23 Assessment & Plan Assessment & Plan (1) Mild recurrent major depression: Code(s): F33.0 - Major depressive disorder, recurrent, mild Category: Medical (2) ROBBIE (generalized anxiety disorder): Code(s): F41.1 - Generalized anxiety disorder Category: Medical (3) Hyperthyroidism: Code(s): E05.90 - Thyrotoxicosis, unspecified without thyrotoxic crisis or storm Category: Medical (4) GERD (gastroesophageal reflux disease): Code(s): K21.9 - Gastro-esophageal reflux disease without esophagitis Category: Medical Qualifiers: Esophagitis presence: esophagitis presence not specified Qualified Code(s): K21.9 - Gastro-esophageal reflux disease without esophagitis (5) Asthma: Code(s): J45.909 - Unspecified asthma, uncomplicated Category: Medical Qualifiers: Asthma severity: moderate Asthma persistence: persistent Asthma complication type: uncomplicated Qualified Code(s): J45.40 - Moderate persistent asthma, uncomplicated Plan Plan 1. Constipation The patient has been prescribed Motegrity (prucalopride) for constipation; however, dispensing is on hold due to a pending prior authorization from her insurance. 2. Benign Paroxysmal Vertigo The patient reports experiencing vertigo upon head movement. She was advised to take it easy. 3. Thyroid Eye Disease The patient has been approved for Tepezza infusions for thyroid eye disease. A referral for a hearing test will be placed, as this is required before she can start the infusions. Orders: Orders MM tomosynthesis screening BI Today Z12.31 - Encounter for screening mammogram for malignant neoplasm of breast Referrals Speech and Hearing Referral H91.90 - Unspecified hearing loss, unspecified ear Medications: Refilled meclizine 25 mg PO DAILY PRN 30 tabs 1RF motion sickness 30 days
== END 2025-07-19 10:35 | disposition home or self-care (01) ==
LOC: HO.HMCH 10:03
PROVIDERS: PCP Internal Medicine; Visit Provider Internal Medicine
DX: F33.0 Major depressive disorder, recurrent, mild (principal); F41.1 Generalized anxiety disorder; E05.90 Thyrotoxicosis, unspecified without thyrotoxic crisis or storm; K21.9 Gastro-esophageal reflux disease without esophagitis; J45.40 Moderate persistent asthma, uncomplicated

== ENCOUNTER 2025-07-19 10:02 | Outpatient (REF) | payer MEDICAID, SELFPAY ==
[2025-07-19 12:20] LABS: Thyroid Stimulating Hormone 0.89 uIU/mL (0.32-4.0)
== END 2025-07-19 10:03 | disposition home or self-care (01) ==
LOC: HO.LAB 10:02
PROVIDERS: Absent Provider Ophthalmology; PCP Internal Medicine; Visit Provider Internal Medicine
DX: E07.9 Disorder of thyroid, unspecified (principal); E05.00 Thyrotoxicosis with diffuse goiter without thyrotoxic crisis or storm; F33.0 Major depressive disorder, recurrent, mild; F41.1 Generalized anxiety disorder; K21.9 Gastro-esophageal reflux disease without esophagitis; J45.40 Moderate persistent asthma, uncomplicated
CPT/HCPCS: 36415; 84436; 84443; 84445; 84480; 99212

== ENCOUNTER 2025-08-04 13:09 | Outpatient (AMB) | payer MEDICAID, SELFPAY ==
[2025-08-04 13:20] VITALS: BP 132/78; BMI 30.3
--- NOTE | 2025-08-04 13:20 | MHC.OFFVIS ---
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 Business Banking Representative Required: No Air Conditioning Equipment Mechanic: Air Conditioning Equipment Mechanic offered & declined Allergies No Known Allergies Allergy (Verified 08/04/25 13:20) Medication List - Last Reconciled 08/04/25 by Myesha Viera CNM albuterol sulfate 90 mcg/actuation (ProAir RespiClick) 2 inhalations inhalation Q6H PRN 30 days albuterol sulfate 2.5 mg (3 mL) inhalation Q6H PRN 30 days blood pressure monitor (Blood Pressure Kit) As directed buspirone 5 mg PO BID celecoxib (Celebrex) 200 mg (2 x 100 mg) PO BID PRN 14 days cetirizine (Zyrtec) 10 mg PO DAILY PRN cholecalciferol (vitamin D3) 125 mcg PO DAILY 90 days cyclobenzaprine 10 mg PO TID PRN diclofenac sodium 1% 4 grams topical QID esomeprazole magnesium 40 mg PO DAILY fluticasone propionate 50 mcg/actuation (Flonase Allergy Relief) 2 sprays intranasal DAILY gabapentin 300 mg PO BEDTIME 90 days ketotifen fumarate 0.025%(0.035%) (Eye Itch Relief) drps ophthalmic (eye) linaclotide (Linzess) 290 mcg PO QAM Held on 06/30/25. Instructions: Doctor's Order meclizine 25 mg PO DAILY PRN 30 days methimazole 2.5 mg (1/2 x 5 mg) PO DAILY 90 days prucalopride (Motegrity) 2 mg PO DAILY simethicone (Gas Relief (simethicone)) 125 mg PO BID-TID PRN sucralfate 10 mL PO BEDTIME umeclidinium-vilanterol 62.5-25 mcg/actuation (Anoro Ellipta) 1 inh inhalation DAILY 60 days valacyclovir 1,000 mg PO Q8H 7 days Ventolin HFA 90 mcg/actuation (albuterol sulfate) 2 puffs inhalation Q6H PRN 30 days NS zolpidem mg PO Is last menstrual period known: No HPI Comments Details: Pt is informed of CHARLIE menchaca for clinical documentation and agrees to its use during the visit Pt 54 year old female presents today for 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 She is not currently in a relationship, not sexually active for several years, declines gc/ct screen Exercise: limited Nutrition/calcium: limited, not consistent with vit D supplements Contraception: s/p ysterectomy for AUB, not for malignancy Last Pap: n/a , Last mammo: 2023, Results Neg Colonoscopy -2022 q 5 yrs PFSH Medical History (Updated 08/04/25 @ 08:06 by Myesha Viera CNM) Family history of cancer Thyroid eye disease Abdominal pain, LUQ (left upper quadrant) Encounter for recheck of abscess following incision and drainage Vulvar abscess Bilateral hip bursitis Chronic idiopathic constipation Sessile serrated polyp of colon Sinusitis ROBBIE (generalized anxiety disorder) Mild recurrent major depression GERD (gastroesophageal reflux disease) Fibromyalgia Obesity, Class I, BMI 30-34.9 Obese Vertigo Tricuspid regurgitation Mitral valve regurgitation Vitamin D deficiency Graves' orbitopathy Uninodular goiter Asthma Graves disease Hyperthyroidism Surgical History History of esophagogastroduodenoscopy (EGD) Hx of colonoscopy History of endometrial ablation H/O ultrasound guided needle biopsy S/P fine needle aspiration Hx of hysterectomy Family History (Updated 08/04/25 @ 13:31 by Myesha Viera CNM) Father CVD (cardiovascular disease) Hypertension Mother CVD (cardiovascular disease) Hypertension Diabetes Son Mental health disorder Maternal Uncle Prostate cancer Brother Stomach cancer Social History Household Members: Children Housing: Apartment Alcohol intake: current Alcohol intake frequency: holidays/special occasions only Patient Tobacco Use Status: Never used Tobacco e-Cigarette/Vaping Use: Never Used Second Hand Smoke Exposure: No Advance Directives Date on File: 05/18/20 service: No Current occupational status: unemployed Cognitive needs: No Hearing needs: No Vision needs: Yes Female Reproductive History Menstrual Age of Menarche: 13 Menopause type: surgical Total pregnancies: 6 Full term: 6 Review of Systems Const Reports no additional complaints Eyes Reports no additional complaints ENT Reports no additional complaints Card Reports no additional complaints Resp Reports no additional complaints GI Reports no additional complaints Reports as per [facility] Skin/Breast Reports system reviewed and no additional complaints, except as documented Physical Exam Vital Signs: Last Vital Signs BP 132/78 08/04/25 13:20 BMI result Body Mass Index 30.3 Const General: cooperative, healthy appearing and no acute distress Orientation/consciousness: patient oriented x3 HEENT Head: Yes normocephalic Neck Neck: Yes normal visual inspection Chest Breast/axilla inspection: normal inspection of the breasts and normal inspection of the axillae Breast/axilla palpation: normal palpation of the breasts, normal palpation of the axillae and no axillary lymphadenopathy Resp Effort & Inspection: normal respiratory effort and able to speak in complete sentences GI Inspection: Yes distended Palpation (GI): Soft to palpation and nontender Percussion: Yes normal to percussion Rectal Exam - Female: visual inspection normal ([ ]) and No External hemorrhoid(s) present External Female Exam: normal external appearance and normal appearance of the urethra Speculum Exam - Vagina: normal appearance of the vagina Speculum Exam - Cervix: Cervix absent (Vaginal cuff w/o lesions) Bimanual exam- vagina & uterus: uterus absent Skin General skin exam: no rashes or lesions noted Neuro General: patient oriented x3 Extrem General: Yes normal to inspection Psych Affect: normal affect Attitude: cooperative Assessment & Plan Assessment & Plan (1) Well woman exam with routine gynecological exam: Code(s): Z01.419 - Encounter for gynecological examination (general) (routine) without abnormal findings Plan: During the visit, the following areas of concern were addressed: Regular exercise Healthy lifestyle Menopausal/phoebe-menopausal signs and symptoms, including nonprescription strategies for management Health Maintenance and Screening -Reviewed ASCCP guidelines for Paps- N/A S/P HYST and yearly (bi-yearly ) pelvic exam. -Reviewed and encouraged diet and exercise for cardiovascular and bone health -Reviewed breast self-awareness. Importance of yearly mammogram after age 40 (earlier if first-degree relative with breast cancer at a younger age ) Discuss use of 3 times per week weight-bearing exercise, vitamin D3 and servings of dietary calcium daily for bone health. -continue to follow with PCP for general medical care, immunizations. Screening strategies for colon cancer after age 50. Family and personal history of cancer reviewed. Genetic screening - completed The patient has BMI: 30 Approaches towards weight loss are discussed including burning more calories than one takes in by frequent, small meals, portion control, avoiding eating before bedtime, regular exercise with an emphasis on duration rather than intensity, strength training exercise, referral to practical nursing teacher or to weight loss management center upon patient request. RTO one year or sooner russ Viera CNM Note about provider documentation : If you or the patient named in this chart and are reviewing your medical notes, please note that medical documentation is often written with abbreviations and medical terminology, and directed for other providers who may be involved in your care as well. Documentation is critical to record what has happened, what tests were ordered, and so they are interpreted with the resulting diagnoses. These notes have been made available for patient review but not specifically written for the patient. Important health information is always given to my patients in clinical instructions. Please review your after visit summary and our contact our clinical staff if you have any questions. (2) Screening breast examination: Code(s): Z12.39 - Encounter for other screening for malignant neoplasm of breast (3) Irritation of vulva: Code(s): N90.89 - Other specified noninflammatory disorders of vulva and perineum (4) Vasomotor symptoms due to menopause: Code(s): N95.1 - Menopausal and female climacteric states Plan 1. Menopausal Vasomotor Symptoms The patient reports bothersome hot flashes and night sweats. She will be started on Veozah. She is counseled on med regime, potential side effects/ benefits of this medication. rev'd allergy sx or warning signs to contact the office Labs to check liver function will be drawn today prior to starting the medication. A medication discount card will be provided in case insurance does not cover the prescription. She will follow up in 3 months for a medication check to assess efficacy. 2. Vaginal Discomfort The patient reports vaginal discomfort without other signs of infection. A vaginal swab was collected to check for bacterial/ yeast causes. Advised using a topical barrier like Vaseline for external irritation. 3. Health Maintenance The patient's mammogram was normal in 2023, and she is scheduled for her next one next year. Her colonoscopy is due in five years. For bone health, a bone density scan is not indicated until age 65. She was given a list of calcium-rich foods and encouraged to increase dietary calcium, as her intake is low. Her vitamin D level will be rechecked today. For constipation, advised increasing water and fiber intake. Orders: Orders Bacterial Vaginosis Panel Today N90.89 - Other specified noninflammatory disorders of vulva and perineum, Z01.419 - Encounter for gynecological examination (general) (routine) without abnormal findings Comprehensive Met. Panel Today N95.1 - Menopausal and female climacteric states, Z01.419 - Encounter for gynecological examination (general) (routine) without abnormal findings Vitamin D 1,25 dihydroxy Today Z01.419 - Encounter for gynecological examination (general) (routine) without abnormal findings Medications: New fezolinetant (Veozah) 45 mg PO DAILY 30 tabs 3RF Patient Instructions: - A prescription for Veozah, a medication to help with your hot flashes, has been sent to your pharmacy. - Please go to the lab on the first floor today for blood work to check your liver and vitamin D levels before you start the new medication. - bone plant supervisor the medication information and discount card at the front office medical assistant. - Please schedule a follow-up appointment in 3 months to check how the medication is working for you. - For vaginal discomfort, you can apply a thin layer of Vaseline to the outer skin if it feels irritated. - To help with constipation, try to drink more water and eat more high-fiber foods. - To keep your bones strong, please try to include calcium-rich foods in your diet, such as yogurt, cheese, and leafy green vegetables. I have provided a list for you. - Keep doing your self-breast exams and let us know if you notice any new lumps, bumps, or other changes. Coding Level of Care Code Est Pt Prev Care 40-64y(64011) Diagnoses Well woman exam with routine gynecological exam Z01.419 Screening breast examination Z12.39 Irritation of vulva N90.89 Vasomotor symptoms due to menopause N95.1
--- OUTSIDE RECORDS SUMMARY | 2025-08-04 14:40 | XMS_ITS | Patient Health Record ---
Author Organization [facility] Address [address] [place], [place] [id number] Care Team Providers Care Medical Insurance Verifier Name Role Phone Zelda Gonzalez Primary Care [...] Children Four, daughters, Two, sons Travel outside [place]. Problems Problem Type SNOMED Code ICD Code Onset Dates Problem Status W/U Status Risk Notes Problem Asthma (016589949) Asthma (493.90) Active confirmed Plan Of Treatment Pending Test Test Name Order Date PFT: Methacholine challenge with FeNO measurement (fractional exhaled nitric oxide ) 05/14/2013 SLEEP STUDY-SPLIT 05/14/2013 Insurance Providers Payer Name Payer Address Payer Phone Subscriber Number Group Number Insured Name Patient Relationship to Insured Coverage Start Date Coverage End Date karissa [facility] [address] [address] [place] [address] [id number] Edson Camacho Self - patient is the insured Medical (General) History Medical History History ICD Code Asthma Chronic Sinusitis Fatigue Surgical History Surgery Date(Month/Year) Hysterectomy 2007
--- OUTSIDE RECORDS SUMMARY | 2025-08-04 14:40 | XMS_ITS | Clinical Summary ---
Author Organization [facility] it Address [address] [place] [address] Care Team Providers Care Insight Director Name Role Phone Melissa Coates MD Primary Care Provider [phone] Surgical History Surgery Date Site/Laterality Comments TUBAL [...] Fibromyalgia 07/22/2014 DX:Fibromyalgia; COMMENT: Rheum work up [facility]/ [facility]/ Dr Zelda Gonzalez Glaucoma 05/01/2011 DX:Glaucoma History of Helicobacter pylo ri infection 07/21/2014 DX:History of Helicobacter p ylori infection; COMMENT: Treated / date not mentioned History of herpes simplex infection 10/29/2011 DX:History of herpes simplex infection Hyperthyroidism 06/21/2014 DX:Hyperthyroidi sm; COMMENT: Methimazole (rx in [facility]). Insomnia 02/10/2015 DX:Insomnia Irritable bowel syndrome [...] on file Sexual Orientation Not on file Plan of Treatment Health Maintenance Due Date [...] age to complete this topic Care Teams Insight Director Relationship Specialty Start Date End Date Aminata, Melissa R, MD [address] [facility] [address] [address] [facility] D/B/A: [facility] JANETTE Soriano PCP - General Internal Medicine 05/19/19
== END 2025-08-04 13:56 | disposition home or self-care (01) ==
LOC: HO.HWSM 13:09
PROVIDERS: PCP Internal Medicine; Visit Provider Advanced Practice Midwife
DX: Z01.419 Encounter for gynecological examination (general) (routine) without abnormal findings (principal); Z12.39 Encounter for other screening for malignant neoplasm of breast; N90.89 Other specified noninflammatory disorders of vulva and perineum; N95.1 Menopausal and female climacteric states
CPT/HCPCS: 99396; 99459

== ENCOUNTER 2025-08-04 13:09 | Outpatient (REF) | payer MEDICAID, SELFPAY ==
[2025-08-04 17:26] LABS: Alanine Aminotransferase 24 U/L (0-31); Albumin Level 4.9 g/dL (3.5-5.0); Alkaline Phosphatase 85 U/L (39-117); Anion Gap 12 (12-20); Aspartate Amino Transferase 32 U/L (5-31); Blood Urea Nitrogen 11 mg/dL (9-16); Calcium 10.0 mg/dL (8.4-10.2); Carbon Dioxide 28 mmol/L (22-29); Chloride 106 mmol/L (96-108); Cholesterol 223 mg/dL (<200); Estimated Glomerular Filt Rate > 60; HDL Cholesterol 37 mg/dL (>40); Potassium 3.7 mmol/L (3.3-5.1); Sodium 142 mmol/L (135-145); Total Protein 7.9 g/dL (6.5-8.0); Triglycerides 122 mg/dL (<150)
== END 2025-08-04 13:10 | disposition home or self-care (01) ==
LOC: HO.LNP 13:09
PROVIDERS: PCP Internal Medicine; Visit Provider Advanced Practice Midwife
DX: Z01.419 Encounter for gynecological examination (general) (routine) without abnormal findings (principal); Z00.00 Encounter for general adult medical examination without abnormal findings; N95.1 Menopausal and female climacteric states; Z12.39 Encounter for other screening for malignant neoplasm of breast; N90.89 Other specified noninflammatory disorders of vulva and perineum; E55.9 Vitamin D deficiency, unspecified
CPT/HCPCS: 80053; 80061; 82306; 82652